=== PATIENT | female | born 1975 | race Hispanic/Latino ===

== ENCOUNTER 2024-03-26 15:19 | Emergency (ER) | payer BC ==
[~2024-03-26] VITALS: Ht 152.4 cm; Wt 59.9 kg
[~2024-03-26 15:19] MED LIST: LACT10SO9 PO
[2024-03-26 15:23] VITALS: BP 116/72; PULSE 120; RESP 16; TEMP 97.9
[2024-03-26 15:49] LABS: APPEARANCE,URINE CLOUDY (CLEAR); BILIRUBIN,URINE NEGATIVE (NEGATIVE); COLOR,URINE YELLOW (YELLOW); GLUCOSE, URINE (UA) NEGATIVE (NEGATIVE); KETONES,URINE NEGATIVE (NEGATIVE); LEUKOCYTE ESTERASE ,URINE 500 Leu/uL (NEGATIVE); NITRATE,URINE NEGATIVE (NEGATIVE); OCCULT BLOOD,URINE NEGATIVE (NEGATIVE); PH,URINE 5.5 (5.0-8.0); PROTEIN,URINE 10 mg/dL (NEGATIVE)
[2024-03-26 15:53] LABS: ADD UA MICROSCOPIC YES
[2024-03-26 15:55] LABS: BACTERIA,URINE RARE /HPF (None Seen); MUCUS,URINE RARE LPF (None Seen); NON-SQUAMOUS EPITHELIAL CELL 2 /HPF (0-2); SQUAMOUS EPITHELIAL CELL,UR FEW /HPF (0-2); WBC,URINE 26-50 /HPF (0-1)
[2024-03-26] MEDS: ondanSETRON 4MG INJ IVP ONE (16:27)
[2024-03-26] MEDS: 0.9%NACL 1000ML 1,000 ML IV ONE (16:27)
[2024-03-26] MEDS: FAMOTIDINE 20MG VIAL IV ONE (16:27)
[2024-03-26 16:46] LABS: BASOPHILS # (AUTO) 0.01 K/uL (0.00-0.20); BASOPHILS % (AUTO) 0.3 % (0.0-5.0); EOSINOPHILS # (AUTO) 0.06 K/uL (0.00-0.70); EOSINOPHILS % (AUTO) 1.9 % (0.0-8.0); HEMATOCRIT 33.8 % (36-48); IMMATURE GRANULOCYTE ABSOLUTE 0.01 K/uL (0-1); LYMPHOCYTES # (AUTO) 1.1 K/uL (1.0-4.8); LYMPHOCYTES % (AUTO) 34.8 % (21.0-51.0); MEAN CORPUSCULAR HEMOGLOBIN 27.9 pg (27.0-33.0); MEAN CORPUSCULAR HGB CONC 33.1 g/dL (32.0-36.0); MEAN CORPUSCULAR VOLUME 84.1 fL (79-99); MONOCYTES # (AUTO) 0.2 K/uL (0.1-1.0); NEUTROPHILS # (AUTO) 1.8 K/uL (1.8-7.7); NEUTROPHILS % (AUTO) 56.7 % (40.0-77.0); PLATELET COUNT (AUTO) 152 K/uL (130-400); RED BLOOD CELL COUNT(AUTO) 4.02 MIL/uL (4.00-5.50); RED CELL DISTRIBUTION WIDTH 13.6 % (11.0-15.5); WHITE BLOOD COUNT (AUTO) 3.2 K/uL (4.8-10.8)
[2024-03-26 16:56] LABS: CREATININE 0.6 mg/dL (0.5-1.0); POTASSIUM 4.2 mmol/L (3.5-5.1)
[2024-03-26 17:01] LABS: ALBUMIN 3.4 g/dL (3.5-5.0); BILIRUBIN,DIRECT 0.2 mg/dL (0.0-0.3); BILIRUBIN,TOTAL 1.2 mg/dL (0.2-1.0); TOTAL PROTEIN, SERUM 7.8 g/dL (6.0-8.3)
[2024-03-26] MEDS: cefTRIAXone 1G VIAL IVPB SCH (18:01)
[2024-03-26] MEDS ORDERED: SULF1TAB42 PO (18:17)
--- NOTE | 2024-03-26 18:18 | ERN ---
General Chief Complaint: Nausea,Vomiting,Diarrhea Stated Complaint: VOMITTING,DEHYDRATED Time Seen by MD: 15:22 Time Seen by Midlevel: 15:22 Source: patient History of Present Illness Initial Comments Patient is a 48-year-old female with a past medical history of endometrial cancer presenting to the emergency department with nausea that has been ongoing since last Tuesday after she received her radiation therapy. She denies any other symptoms. She is followed by oncologist Dr. Christie. Allergies: Coded Allergies: No Known Drug Allergies (Unverified Allergy, Unknown, 04/20/23) Home Meds Active Scripts Sulfamethoxazole/Trimethoprim (Bactrim Ds Tablet) 800 Mg-160 Mg Tablet, 1 TAB PO BID for 7 Days, #14 TAB 0 Refills Prov:MICHELLE CHERRY 03/26/24 Lactulose (Lactulose) 20 Gram/30 Ml Solution, 20 GM PO DAILY PRN for constipation for 30 Days, #320 ML Prov:JOVAN BECKHMA NP 04/22/23 Past Medical History Past Medical History: Cancer Medical History Other: STG 4 ENDOMETRIAL CA, NEUROPATHY Past Surgical History: Hysterectomy, None Surgical History Other: PORT Social History Social History: Negative, Lives with family ROS Dictation CONSTITUTIONAL: Negative except for HPI HEAD/FACE: Negative except for HPI EENT: Negative except for HPI RESPIRATORY: Negative except for HPI GASTROINTESTINAL/ABDOMINAL: Negative except for HPI GENITOURINARY: Negative except for HPI MUSCULOSKELETAL: Negative except for HPI INTEGUMENTARY: Negative except for HPI NEUROLOGICAL/PSYCH: Negative except for HPI HEMATOLOGIC/LYMPHATIC: Negative except for HPI All Systems Negative, Except as noted above. 13 point review of systems assessed and all negative except for above. Physical Exam Physical Exam Dictation Vital Signs reviewed General Appearance: Alert, oriented x 3, no acute distress, well developed, nourished. Head and Face: non-traumatic. Eyes: PERRL, pink conjunctivas, eyelid no trauma, anterior chamber with arcus senilis. Ears: Pinnas intact and no signs of trauma or erythema ear canals clear and no discharge TM no erythema Nose: No discharge, no bleeding. Oropharynx: Mouth normal, tongue pink, pharynx clear,no erythema, tonsils no exudates, no abscesses noted, mucous membrane moist Neck: Supple, non-tender, no thyromegaly, no masses, no JVD, no bruits Breast:Deferred Chest:No tenderness, no crepitus, no paradoxical movement, no retractions Lungs:Clear, well-ventilated, symmetric, no rales, no wheezing, no rhonchi, no stridor, good breath sounds bilaterally Heart: Regular rate, regular rhythm, no murmur, no gallops Vascular: no peripheral edema, Abdomen: Soft, positive bowel sounds, nondistended, no guarding, nontender, no rebound, no masses no hepatomegaly, no splenomegaly, no Jean's sign, no hernias. Rectal: Deferred Genital: Deferred Neurological: Normal speech, motor function intact, sensory function intact Musculoskeletal: Neck nontender, full range of motion, back nontender, full range of motion, Extremities: nontender, full range of motion Skin: Color pink, dry, no turgor, no rash, no lacerations, no abrasions, no contusions. Lymphatic: Deferred Results Laboratory and Microbiology Lab and Micro Result Laboratory Tests Test 03/26/24 15:38 03/26/24 16:36 Urine Color YELLOW (YELLOW) Urine Appearance CLOUDY (CLEAR) H Urine pH 5.5 (5.0-8.0) Urine Specific [place] 1.013 (1.001-1.031) Urine Protein 10 mg/dL (NEGATIVE) H Urine Glucose (UA) NEGATIVE mg/dL (NEGATIVE) Urine Ketones NEGATIVE mg/dL (NEGATIVE) Urine Occult Blood NEGATIVE (NEGATIVE) Urine Nitrate NEGATIVE (NEGATIVE) Urine Bilirubin NEGATIVE mg/dL (NEGATIVE) Urine Urobilinogen 4.0 mg/dL (0.2-1.0) H Urine Leukocyte Esterase 500 Brittaney/uL (NEGATIVE) H Urine RBC 2-5 /HPF (0-1) H Urine WBC 26-50 /HPF (0-1) H Urine Squamous Epithelial Cells FEW /HPF (0-2) Urine Non-Squamous Epithelial Cells 2 /HPF (0-2) Urine Bacteria RARE /HPF (None Seen) White Blood Count 3.2 K/uL (4.8-10.8) L Red Blood Count 4.02 MIL/uL (4.00-5.50) Hemoglobin 11.2 g/dL (12.0-16.0) L Hematocrit 33.8 % (36-48) L Mean Corpuscular Volume 84.1 fL (79-99) Mean Corpuscular Hemoglobin 27.9 pg (27.0-33.0) Mean Corpuscular Hemoglobin Concent 33.1 g/dL (32.0-36.0) Red Cell Distribution Width 13.6 % (11.0-15.5) Platelet Count 152 K/uL (130-400) Mean Platelet Volume 8.7 fL (7.5-10.5) Immature Granulocyte % (Auto) 0.3 % (0-1) Neutrophils (%) (Auto) 56.7 % (40.0-77.0) Lymphocytes (%) (Auto) 34.8 % (21.0-51.0) Monocytes (%) (Auto) 6.0 % (3.0-13.0) Eosinophils (%) (Auto) 1.9 % (0.0-8.0) Basophils (%) (Auto) 0.3 % (0.0-5.0) Neutrophils # (Auto) 1.8 K/uL (1.8-7.7) Lymphocytes # (Auto) 1.1 K/uL (1.0-4.8) Monocytes # (Auto) 0.2 K/uL (0.1-1.0) Eosinophils # (Auto) 0.06 K/uL (0.00-0.70) Basophils # (Auto) 0.01 K/uL (0.00-0.20) Absolute Immature Granulocyte (auto 0.01 K/uL (0-1) Nucleated Red Blood Cells 0.0 % (0.0-0.19) Sodium Level 143 mmol/L (136-145) Potassium Level 4.2 mmol/L (3.5-5.1) Chloride Level 105 mmol/L (101-111) Carbon Dioxide Level 31 mmol/L (21-32) Blood Urea Nitrogen 6 mg/dL (7-18) L Creatinine 0.6 mg/dL (0.5-1.0) Glomerular Filtration Rate Calc 112 mL/min (>90) Random Glucose 92 mg/dL (70-105) Total Calcium 10.6 mg/dL (8.5-10.1) H Total Bilirubin 1.2 mg/dL (0.2-1.0) H Direct Bilirubin 0.2 mg/dL (0.0-0.3) Aspartate Amino Transf (AST/SGOT) 27 U/L (10-37) Alanine Aminotransferase (ALT/SGPT) 17 U/L (12-78) Alkaline Phosphatase 74 U/L (50-136) Total Creatine Kinase 42 U/L (21-232) Total Protein 7.8 g/dL (6.0-8.3) Albumin 3.4 g/dL (3.5-5.0) L Lipase 20 U/L (16-77) Serum Test, Qualitative NEGATIVE (NEGATIVE) Labs Reviewed?: Yes MDM MDM: Differential diagnosis: DKA, electrolyte abnormality, dehydration, urinary tract infection There are no social concerns with this patient. Prescription drug management Prescriptions will include: Bactrim Medical management and examination interpretation discussions were had by me with other qualified healthcare professionals as indicated for the patient's care. ED Course Orders Procedure Category Date Status Time Cbc With Differential LAB 03/26/24 Complete 15:22 Basic Metabolic Panel LAB 03/26/24 Complete 15:22 Hepatic Function Panel LAB 03/26/24 Complete 15:22 Lipase LAB 03/26/24 Complete 15:22 Urinalysis Profile LAB 03/26/24 Complete 15:22 Testing, LAB 03/26/24 Complete Serum Hcg 15:22 Creatine Kinase, Total LAB 03/26/24 Complete 15:22 0.9%Nacl 1000ml (Ns PHA 03/26/24 Complete 1000ml) 15:30 Ondansetron 4mg Inj PHA 03/26/24 Complete (Zofran 4mg Inj) 15:30 Famotidine 20mg Vial PHA 03/26/24 Complete (Pepcid 20mg Vial) 15:30 Culture Urine DEEJAY 03/26/24 In Process 15:53 Ceftriaxone 1g Vial PHA 03/26/24 In Process (Rocephine 1g Inj) 18:00 Ondansetron 4mg Inj PHA 03/26/24 Logged (Zofran 4mg Inj) 18:30 Current Medications Medications (Trade) Dose Ordered Sig/Mina Route PRN Reason Start Time Stop Time Status Last Admin Dose Admin Ceftriaxone Sodium (ROCEphine 1G INJ) 1 gm ONCE IVPB 03/26/24 18:00 03/26/24 21:00 03/26/24 18:01 Famotidine (Pepcid 20mg Vial) 20 mg ONCE ONCE IV 03/26/24 15:30 03/26/24 15:31 DC 03/26/24 16:27 Ondansetron HCl (zoFRAN 4MG INJ) 4 mg ONCE ONCE IVP 03/26/24 15:30 03/26/24 15:31 DC 03/26/24 16:27 Ondansetron HCl (zoFRAN 4MG INJ) 4 mg ONCE ONCE IVP 03/26/24 18:30 03/26/24 18:31 UNV Sodium Chloride 1,000 ml @ 0 mls/hr ONCE ONCE IV 03/26/24 15:30 03/26/24 15:31 DC 03/26/24 16:27 Vital Signs Date Time Temp Pulse Resp B/P (MAP) Pulse Ox O2 Delivery O2 Flow Rate FiO2 03/26/24 15:23 97.9 120 16 116/72 100 Room Air 0 DX & DISP Disposition: Discharge Departure Impression: Primary Impression: Urinary tract infection Condition: Stable Scripts Ondansetron (Ondansetron Odt) 4 Mg Tab.rapdis 4 MG PO BID for 7 Days, #14 TAB Prov: MICHELLE CHERRY 03/26/24 Sulfamethoxazole/Trimethoprim (Bactrim Ds Tablet) 800 Mg-160 Mg Tablet 1 TAB PO BID for 7 Days, #14 TAB 0 Refills Prov: MICHELLE CHERRY 03/26/24 Referrals: SELF,REFERRAL (PCP) Time of Disposition: 18:17 I have reviewed the case, and I agree with, Diagnosis and Plan I performed the substantive portion of the visit. I have reviewed and personally made and approve the management plan that is documented in the note by myself or the ABIEL. I acknowledge for responsibility for the patient's management plan. MICHELLE CHERRY Mar 26, 2024 18:18
[2024-03-26] MEDS ORDERED: ONDA-243 PO (18:29)
[2024-03-26] MEDS ORDERED: ondanSETRON 4MG INJ IVP SCH (18:30)
== END 2024-03-26 20:05 | disposition home or self-care (01) ==
LOC: EDH 15:19
DX: N39.0 Urinary tract infection, site not specified (principal); Z85.42 Personal history of malignant neoplasm of other parts of uterus; Z90.710 Acquired absence of both cervix and uterus
CPT/HCPCS: 99284; 96365; 96375; 96361; 82550; 80076; 80048; 84703; 83690; 85025; 87086; 81001; 36415; J3490; J7030; J0696; J2405

== ENCOUNTER 2024-06-02 14:57 | Inpatient (IN) | payer BC ==
[2024-06-02] VITALS (10 sets, daily range): BP systolic 40–151; BP diastolic 18–88; PULSE 121–134; RESP 10–21; TEMP 97.7; O2SAT 99
[~2024-06-02] VITALS: Ht 152.4 cm; Wt 61.0 kg
[~2024-06-02 14:57] MED LIST changes: +AEC81 PO; +CEFD300C3 PO; +COLC0.6T73 PO; +CYAN100099 PO; +FERS325 PO; +FOLI0.4T6 PO; +GABA-529 PO; +INDO-16 PO; -LACT10SO9 PO; +LACT1CAP79 PO; +METO10TA3 PO; +METO10TA41 PO; +ONDA-104 PO; +TRAM100T34 PO; +TRAM50TA4 PO; +[UNRECOGNIZED DRUG - CODE] PO
--- NOTE | 2024-06-02 15:13 | EKG ---
[facility] Test Date: 2024-06-02 Test Time: 15:12:38 Pat Name: JERRY MALONE Department: [facility] Room: Gender: F Sap Basis: [id number] : 1975 Requested By: MAGGIE COLLADO Order Number: [id number] Reading MD: Libby Burleson Measurements Intervals [place] Rate: 145 P: 50 MO: 127 QRS: 52 QRSD: 50 T: 34 QT: 271 QTc: 422 Interpretive Statements Sinus tachycardia Multiple premature complexes, vent & supraven Compared to ECG 05/04/2024 20:26:29 No significant changes Electronically Signed On 06-02-2024 16:52:37 CDT by Libby Burleson Please click the below link to view image of tracing.
[2024-06-02 15:48] LABS: BASOPHILS # (AUTO) 0.02 K/uL (0.00-0.20); BASOPHILS % (AUTO) 0.2 % (0.0-5.0); EOSINOPHILS # (AUTO) 0.08 K/uL (0.00-0.70); EOSINOPHILS % (AUTO) 0.6 % (0.0-8.0); HEMATOCRIT 30.3 % (36-48); IMMATURE GRANULOCYTE ABSOLUTE 0.06 K/uL (0-1); LYMPHOCYTES # (AUTO) 1.6 K/uL (1.0-4.8); MEAN CORPUSCULAR HEMOGLOBIN 29.6 pg (27.0-33.0); MEAN CORPUSCULAR VOLUME 92.4 fL (79-99); MONOCYTES # (AUTO) 0.8 K/uL (0.1-1.0); MONOCYTES % (AUTO) 6.4 % (3.0-13.0); NEUTROPHILS # (AUTO) 9.9 K/uL (1.8-7.7); NEUTROPHILS % (AUTO) 79.3 % (40.0-77.0); PLATELET COUNT (AUTO) 158 K/uL (130-400); RED BLOOD CELL COUNT(AUTO) 3.28 MIL/uL (4.00-5.50); RED CELL DISTRIBUTION WIDTH 15.7 % (11.0-15.5); WHITE BLOOD COUNT (AUTO) 12.4 K/uL (4.8-10.8)
--- NOTE | 2024-06-02 15:49 | ERN ---
General Chief Complaint: Sepsis Stated Complaint: GENERAL BODY WEAKNESS SEPSIS ALERT Time Seen by MD: 14:58 Source: patient, EMS History of Present Illness Initial Comments PATIENT IS A 48-YEAR-OLD FEMALE COMING IN FOR GENERALIZED BODY WEAKNESS. PER E MS PATIENT HAS BEEN PRESENTING WITH WEAKNESS FOR TWO DAYS AND WAS FOUND TO HAVE A NEAR SYNCOPAL EPISODE. PATIENT WAS ALSO HYPOXIC HYPOTENSIVE VIA EMS. Allergies: Coded Allergies: No Known Drug Allergies (Unverified Allergy, Unknown, 04/20/23) Home Meds Active Scripts Cyanocobalamin (Vitamin B-12) (B-12) 1,000 Mcg Tablet, 1 TAB PO DAILY for 30 Days, #30 TAB 1 Refill Prov:MARLENE INIGUEZ MD 05/09/24 Folic Acid (Folic Acid) 0.4 Mg Tablet, 1 TAB PO DAILY for 30 Days, #30 TAB 1 Refill Prov:MARLENE INIGUEZ MD 05/09/24 Cefdinir (Cefdinir) 300 Mg Capsule, 1 CAP PO BID for 5 Days, #10 CAP 0 Refills Prov:MARLENE INIGUEZ MD 05/09/24 Ferrous Sulfate (Ferrous Sulfate) 325 Mg (65 Mg Iron) Ectab, 1 TAB PO DAILY for 30 Days, #30 TAB 1 Refill Prov:MARLENE INIGUEZ MD 05/09/24 Lactobacillus Rhamnosus GG (Culturelle) 15 Billion Cell Cap.sprink, 1 EACH PO DAILY for 7 Days, #14 CAP.SPRINK 1 Refill Prov:MARLENE INIGUEZ MD 05/09/24 Indomethacin (Indocin) 25 Mg Cap, 25 MG PO BID PRN for CHEST PAIN for 7 Days, #14 CAP 1 Refill Prov:MARLENE INIGUEZ MD 05/09/24 Colchicine (Colchicine) 0.6 Mg Tablet, 0.6 MG PO DAILY for 44 Days, #44 TAB 0 Refills Prov:MARLENE INIGUEZ MD 05/09/24 Aspirin (ASPIRIN 81 MG ECTAB) 81 Mg Ectab, 81 MG PO DAILY for 30 Days, #30 TAB.EC 1 Refill Prov:MARLENE INIGUEZ MD 05/09/24 Ondansetron HCl (Ondansetron HCl) 4 Mg Tablet, 1 TAB PO Q4HPRN PRN for nausea/vomiting for 3 Days, #18 TAB 0 Refills Prov:JOVAN BECKHAM NP 04/12/24 Reported Medications Metoclopramide HCl (Metoclopramide HCl) 10 Mg Tablet, 1 TAB PO QIDP PRN for nausea/vomiting 05/05/24 Tramadol Hcl (Tramadol HCl) 50 Mg Tablet, 1 TAB PO Q8H PRN for pain 05/05/24 Guaifenesin (Mucus-ER Max) 1,200 Mg Tab.er.12h, 1200 MG PO BID PRN for OTHER [SEE ORDER COMMENTS], TAB 04/07/24 Tramadol HCl (Tramadol HCl ER) 100 Mg Tab.er.24h, 50 MG PO TID PRN for PAIN, TAB 04/07/24 Metoclopramide HCl (Reglan 10 mg Tab) 10 Mg Tablet, 1 TAB PO QID PRN for NAUSEA/VOMITING for 30 Days, #120 TAB 0 Refills 04/07/24 Gabapentin (Gabapentin) 100 Mg Capsule, 1 CAP PO BID for 30 Days, #90 CAP 0 Refills 04/07/24 Past Medical History Past Medical History: Cancer Medical History Other: PERICARDITIS, CHEMO, ENDOMETRIOSIS, UTERINE CANCER Past Surgical History: Other Surgical History Other: PORT A CATH Social History Social History: Negative, Lives with family ROS Dictation CONSTITUTIONAL: NO CHILLS, NO FEVER, WEAKNESS, NO DIAPHORESIS, NO MALAISE. HEAD/FACE: NO SIGNS OF TRAUMA. EENT: NO EYE PAIN, NO BLURRED VISION, NO TEARING, NO DOUBLE VISION, NO EAR PAIN, NO EAR DISCHARGE, NO NOSE PAIN, NO NASAL CONGESTION, NO THROAT PAIN, NO THROAT SWELLING, NO MOUTH PAIN. RESPIRATORY: NO COUGH, NO ORTHOPNEA, NO SOB, NO STRIDOR, NO WHEEZING. CARDIOVASCULAR: NO CHEST PAIN, NO EDEMA, NO PALPITATIONS, NO SYNCOPE. GASTROINTESTINAL/ABDOMINAL: NO ABDOMINAL PAIN, NO CONSTIPATION, NO DIARRHEA, NO NAUSEA, NO VOMITING. GENITOURINARY: NO ABNORMAL DISCHARGE, NO DYSURIA, NO FREQUENT URINATION, NO HEMATURIA. NO COMPLAINTS OF PAIN IN THE GENITALS. MUSCULOSKELETAL: NO BACK PAIN, NO GOUT, NO JOINT PAIN, NO JOINT SWELLING, NO MUSCLE PAIN, NO MUSCLE STIFFNESS, NO NECK PAIN. INTEGUMENTARY: NO CHANGE IN COLOR, NO CHANGE IN HAIR/NAILS, NO DRYNESS, NO LESION, NO LUMPS, NO RASH. NEUROLOGICAL/PSYCH: NO ANXIETY, NOT DEPRESSED, NO EMOTIONAL PROBLEM, NO HEADACHE, NO NUMBNESS, NO PRE-EXISTING DEFICIT, NO HISTORY OF SEIZURES, NO TREMORS, NO WEAKNESS. HEMATOLOGIC/LYMPHATIC: NOT ANEMIC, NO HISTORY OF BLOOD CLOTS, NO APPARENT BLEEDING, NO BRUISING, GLANDS NOT SWOLLEN. ALL SYSTEMS NEGATIVE, EXCEPT NOTED. Physical Exam Physical Exam Dictation VITAL SIGNS: REVIEWED. GENERAL APPEARANCE: ALERT, ORIENTED X3, NO ACUTE DISTRESS, OBESE. HEAD AND FACE: NON-TRAUMATIC. EYES: PERRL, PINK CONJUNCTIVAS, EYELID NO TRAUMA, ANTERIOR CHAMBER CLEAR. EARS: PINNAS INTACT AND NO SIGNS OF TRAUMA OR ERYTHEMA. EAR CANALS CLEAR AND NO DISCHARGE. TMS NO ERYTHEMA. NOSE: NO DISCHARGE, NO BLEEDING. OROPHARYNX: MOUTH NORMAL, TEETH NO CARIES, TONGUE PINK. PHARYNX CLEAR, NO ERYTHEMA. TONSILS NO EXUDATES, NO ABSCESSES NOTED. MUCOUS MEMBRANE MOIST. NECK: SUPPLE, NON-TENDER, NO THYROMEGALY, NO MASSES, NO JVD, NO BRUITS. BREAST: DEFERRED. CHEST: NO TENDERNESS, NO CREPITUS, NO PARADOXICAL MOVEMENT, NO RETRACTIONS. LUNGS: CLEAR, WELL-VENTILATED, SYMMETRIC, NO RALES, NO WHEEZING, NO RHONCHI, NO STRIDOR, GOOD BREATH SOUNDS BILATERALLY. HEART: REGULAR RATE, REGULAR RHYTHM, NO MURMUR, NO GALLOPS. VASCULAR: NO PERIPHERAL EDEMA. ABDOMEN: SOFT, POSITIVE BOWEL SOUNDS, NONDISTENDED, NO GUARDING, NONTENDER, NO REBOUND, NO MASSES NO HEPATOMEGALY, NO SPLENOMEGALY, NO LANGFORD'S SIGN, NO HERNIAS. RECTAL: DEFERRED. GENITAL: DEFERRED. NEUROLOGICAL: NORMAL SPEECH, GROSS MOTOR FUNCTION INTACT, GROSS SENSORY FUNCTION INTACT. MUSCULOSKELETAL: NECK NONTENDER, FULL RANGE OF MOTION, BACK NONTENDER, FULL RANGE OF MOTION. EXTREMITIES: NONTENDER, FULL RANGE OF MOTION. SKIN: COLOR PINK, DRY, NO TURGOR, NO RASH, NO LACERATIONS, NO ABRASIONS, NO CONTUSIONS. LYMPHATICS: DEFERRED. Results Laboratory and Microbiology Lab and Micro Result Laboratory Tests Test 06/02/24 15:36 06/02/24 16:48 06/02/24 17:14 White Blood Count 12.4 K/uL (4.8-10.8) H Red Blood Count 3.28 MIL/uL (4.00-5.50) L Hemoglobin 9.7 g/dL (12.0-16.0) L Hematocrit 30.3 % (36-48) L Mean Corpuscular Volume 92.4 fL (79-99) Mean Corpuscular Hemoglobin 29.6 pg (27.0-33.0) Mean Corpuscular Hemoglobin Concent 32.0 g/dL (32.0-36.0) Red Cell Distribution Width 15.7 % (11.0-15.5) H Platelet Count 158 K/uL (130-400) Mean Platelet Volume 9.2 fL (7.5-10.5) Immature Granulocyte % (Auto) 0.5 % (0-1) Neutrophils (%) (Auto) 79.3 % (40.0-77.0) H Lymphocytes (%) (Auto) 13.0 % (21.0-51.0) L Monocytes (%) (Auto) 6.4 % (3.0-13.0) Eosinophils (%) (Auto) 0.6 % (0.0-8.0) Basophils (%) (Auto) 0.2 % (0.0-5.0) Neutrophils # (Auto) 9.9 K/uL (1.8-7.7) H Lymphocytes # (Auto) 1.6 K/uL (1.0-4.8) Monocytes # (Auto) 0.8 K/uL (0.1-1.0) Eosinophils # (Auto) 0.08 K/uL (0.00-0.70) Basophils # (Auto) 0.02 K/uL (0.00-0.20) Absolute Immature Granulocyte (auto 0.06 K/uL (0-1) Nucleated Red Blood Cells 0.0 % (0.0-0.19) Sodium Level 132 mmol/L (136-145) L Potassium Level 4.8 mmol/L (3.5-5.1) Chloride Level 99 mmol/L (101-111) L Carbon Dioxide Level 27 mmol/L (21-32) Blood Urea Nitrogen 21 mg/dL (7-18) H Creatinine 1.5 mg/dL (0.5-1.0) H Glomerular Filtration Rate Calc 43 mL/min (>90) Random Glucose 83 mg/dL (70-105) Lactic Acid Level 1.9 mmol/L (0.8-2.5) Total Calcium 8.9 mg/dL (8.5-10.1) Total Bilirubin 1.9 mg/dL (0.2-1.0) H Aspartate Amino Transf (AST/SGOT) 18 U/L (10-37) Alanine Aminotransferase (ALT/SGPT) 5 U/L (12-78) L Alkaline Phosphatase 89 U/L (50-136) Total Creatine Kinase 90 U/L (21-232) Troponin I High Sensitivity 11 ng/L (4-50) Total Protein 5.9 g/dL (6.0-8.3) L Albumin 2.3 g/dL (3.5-5.0) L Lipase 8 U/L (16-77) L Procalcitonin 5.90 ng/mL (0.05-0.5) H Human Chorionic Gonadotropin, Quant 3 mIU/mL (0-5) Influenza Type A Antigen Negative For Type A Influenza Type B Antigen Negative For Type B SARS-CoV-2, RNA, NAAT NEGATIVE SARS CoV-2 Group A Streptococcus Rapid negative (NEGATIVE) Labs Reviewed?: Yes EKG/XRAY/US/CT/MRI EKG Comment 06/02/2024 TIME 3:12 P.M. VENTRICULAR RATE [address] WAVE ELEVATION OR DEPRESSION SINUS TACHYCARDIA X-RAY Comment [address] [place] [id number] [place] [id number] IMAGING REPORT Signed PATIENT: JERRY MALONE MR#: [id number] : 1975 SEX: F AGE: 48 LOCATION: [facility] ORDER 1500 STATUS: REG ER REPORT#: [id number] SERVICE [id number] REASON: SEPSIS ORDERING PHYSICIAN: MAGGIE COLLADO MD PROCEDURE: CXR1VW - CHEST 1VW CHEST 1VW HISTORY: Sepsis COMPARISON: None FINDINGS: A frontal projection of the chest was obtained. Mild bilateral pulmonary infiltrates are seen may be related to mild pulmonary vascular congestion with possible superimposed pneumonitis. The heart is borderline enlarged. Port-A-Cath is seen entering from the left. Degenerative changes are seen. No evidence of aortic calcification is seen. IMPRESSION: 1. Mild bilateral pulmonary infiltrates are seen may be related to mild pulmonary vascular congestion with possible superimposed pneumonitis. DICTATED BY: EMILY WETZEL MD DATE: 06/02/24 1610 ELECTRONICALLY SIGNED BY: EMILY WETZEL MD DATE: 06/02/24 1615 [facility] MDM: Differential diagnosis: Sepsis, UTI, URI, hypotensive, Rationale: Tests considered and ordered secondary to shared decision making include: labs, ECG and radiology Previous outside records reviewed: Old ER visits. Risk of complication and/or morbidity or mortality of patient management: None Medications-Per medication reconciliation Need for hospitalization: Patient does meet criteria for hospitalization. Need for emergency major/minor surgery: No There are no social concerns with this patient. Prescription drug management Prescriptions will include symptomatic care Patient's prior external medical records from other ER visits were reviewed by me as indicated. Prior testing and results from previous visits were reviewed. Prior tests were taken into account with medical decision making and resource utilization, independent historian/historians were used to obtain complete medical history. I independently interpreted the test that were performed, results were reviewed by me and considered findings on radiology if ordered. Medical management and examination interpretation discussions were had by me with other qualified healthcare professionals as indicated for the patient's care. Patient is a 48-year-old female coming in to be evaluated for low blood pressure and tachycardic. Septic workup positive for elevated procalcitonin. Patient also presented with mildly elevated white blood cell count with chest x- ray infiltrates. Patient will be admitted under the care of hospitalist group for ongoing management. ED Course Orders Procedure Category Date Status Time Cbc With Differential LAB 06/02/24 Complete 14:58 Comprehensive LAB 06/02/24 Complete Metabolic Panel 14:58 Troponin I High LAB 06/02/24 Complete Sensitivity 14:58 Hcg,Quantitative LAB 06/02/24 Complete 14:58 ,Urine Test LAB 06/02/24 Logged 14:58 Urinalysis Profile LAB 06/02/24 Logged 14:58 12 Lead Ekg Tracing- EKG 06/02/24 Resulted Technical 14:58 Lactated Ringers PHA 06/02/24 Complete 1000ml (Lactated 15:00 Acetaminophen 325 Tab PHA 06/02/24 Complete (Tylenol 325mg Tab 15:00 Ondansetron 4mg Inj PHA 06/02/24 Complete (Zofran 4mg Inj) 15:00 Creatine Kinase, Total LAB 06/02/24 Complete 14:58 Chest 1vw RAD 06/02/24 Resulted 14:58 Lipase LAB 06/02/24 Complete 14:58 Basic Metabolic Panel LAB 06/02/24 Complete 14:58 Covid Rna Naat LAB 06/02/24 Complete 15:00 Influenza Type A & B, LAB 06/02/24 Complete Rapid 15:00 Blood Cult DEEJAY 06/02/24 In Process 15:37 Culture Urine DEEJAY 06/02/24 In Process 15:37 Procalcitonin LAB 06/02/24 Complete 15:37 Lactic Acid LAB 06/02/24 Complete 15:37 Norepinephrin 4mg/Ns PHA 06/02/24 In Process 250ml (Levophed 4mg 16:00 Lactated Ringers PHA 06/02/24 In Process 1000ml (Lactated 17:30 Rapid (Group A Strep) LAB 06/02/24 Complete 17:09 Ceftriaxone 1g Vial PHA 06/02/24 Complete (Rocephine 1g Inj) 18:00 Azithromycin 500mg+Ns PHA 06/02/24 In Process 250ml (Azithromyci 18:00 Current Medications Medications (Trade) Dose Ordered Sig/Mina Route PRN Reason Start Time Stop Time Status Last Admin Dose Admin Acetaminophen (TYLenol 325MG TAB) 650 mg ONCE ONCE PO 06/02/24 15:00 06/02/24 15:08 DC 06/02/24 15:57 Azithromycin 250 ml @ 250 mls/hr Q24H IVPB 06/02/24 18:00 06/12/24 17:59 06/02/24 18:18 Ceftriaxone Sodium (ROCEphine 1G INJ) 1 gm ONCE ONCE IVPB 06/02/24 18:00 06/02/24 18:08 DC 06/02/24 18:18 Lactated Ringer's 1,000 ml @ 0 mls/hr ONCE ONCE IV 06/02/24 15:00 06/02/24 15:08 DC 06/02/24 15:57 Lactated Ringer's 1,905 ml @ 635 mls/hr ONCE ONCE IV 06/02/24 17:30 06/02/24 20:29 06/02/24 17:17 Norepinephrine 250 ml @ 0 mls/hr PROTOCOL IV 06/02/24 16:00 07/02/24 15:59 06/02/24 16:28 Ondansetron HCl (zoFRAN 4MG INJ) 4 mg ONCE ONCE IVP 06/02/24 15:00 06/02/24 15:08 DC 06/02/24 15:56 Vital Signs Date Time Temp Pulse Resp B/P (MAP) Pulse Ox O2 Delivery O2 Flow Rate FiO2 06/02/24 18:13 150 20 103/52 98 Nasal Cannula* 4 36 06/02/24 17:36 148 22 64/32 98 Nasal Cannula* 4 36 06/02/24 17:17 99.5 150 21 90/51 98 Nasal Cannula* 4 36 06/02/24 16:53 142 22 82/52 98 Nasal Cannula* 4 36 06/02/24 16:45 99.1 144 20 71/41 98 Nasal Cannula* 4 36 06/02/24 16:29 99.0 141 20 58/33 98 Nasal Cannula* 4 36 06/02/24 16:28 58/33 06/02/24 15:35 99.7 144 18 61/33 98 Nasal Cannula* 4 36 06/02/24 15:01 97.7 141 25 113/77 94 Nasal Cannula 3.0 Critical Care Note Comments Critical Care Procedure Note Authorized and Performed by: me Total critical care time: Approximately 36 minutes Due to a high probability of clinically significant, life threatening deterioration, the patient required my highest level of preparedness to intervene emergently and I personally spent this critical care time directly and personally managing the patient. This critical care time included obtaining a history; examining the patient; pulse oximetry; ordering and review of studies; arranging urgent treatment with development of a management plan; evaluation of patient's response to treatment; frequent reassessment; and, discussions with other providers. This critical care time was performed to assess and manage the high probability of imminent, life-threatening deterioration that could result in multi-organ failure. It was exclusive of separately billable procedures and treating other patients and teaching time. Please see MDM section and the rest of the note for further information on patient assessment and treatment. DX & DISP Disposition: Inpatient Decision to Admit Time: 18:20 Departure Impression: Primary Impression: Dehydration Additional Impressions: Tachycardia, Hypotension Condition: Stable Referrals: SELF,REFERRAL (PCP) MAGGIE COLLADO MD Jun 02, 2024 15:49
[2024-06-02] MEDS: ondanSETRON 4MG INJ IVP ONE (15:56)
[2024-06-02] MEDS: LACTATED RINGERS 1000ML 1,000 ML IV ONE (15:57)
[2024-06-02] MEDS: acetaMINOPHEN 325 MG TAB PO ONE (15:57)
[2024-06-02 16:02] LABS: CREATININE 1.5 mg/dL (0.5-1.0); POTASSIUM 4.8 mmol/L (3.5-5.1)
--- NOTE | 2024-06-02 16:15 | HMCIMG ---
CHEST 1VW HISTORY: Sepsis COMPARISON: None FINDINGS: A frontal projection of the chest was obtained. Mild bilateral pulmonary infiltrates are seen may be related to mild pulmonary vascular congestion with possible superimposed pneumonitis. The heart is borderline enlarged. Port-A-Cath is seen entering from the left. Degenerative changes are seen. No evidence of aortic calcification is seen. IMPRESSION: 1. Mild bilateral pulmonary infiltrates are seen may be related to mild pulmonary vascular congestion with possible superimposed pneumonitis.
[2024-06-02 16:23] LABS: ALBUMIN 2.3 g/dL (3.5-5.0); BILIRUBIN,TOTAL 1.9 mg/dL (0.2-1.0); TOTAL PROTEIN, SERUM 5.9 g/dL (6.0-8.3)
[2024-06-02] MEDS: NOREPINEPHRIN 4MG/NS 250ML 250 ML IV SCH (16:28)
--- NOTE | 2024-06-02 17:03 | NUR ---
30ML PER KG BOLUS ORDERED AT THIS TIME. 1 LITER OF LR ALREADY ADMINISTERED
[2024-06-02] MEDS: LACTATED RINGERS IV ONE (17:17)
[2024-06-02 17:30] LABS: SARS-CoV-2, RNA, NAAT NEGATIVE SARS CoV-2 (NEGATIVE)
[2024-06-02 17:36] LABS: INFLUENZA TYPE A Negative For Type A (NEGATIVE); INFLUENZA TYPE B Negative For Type B (NEGATIVE)
[2024-06-02] MEDS: AZITHROMYCIN 500MG+NS 250ML 250 ML IVPB SCH (18:18)
[2024-06-02] MEDS: cefTRIAXone 1G VIAL IVPB ONE (18:18)
[2024-06-02] MEDS: 0.9%NACL 1000ML 1,000 ML IV SCH ×2 (19:04→19:39)
--- NOTE | 2024-06-02 19:16 | NUR ---
CARE TRANSFERRED TO LANE RN
[2024-06-02] MEDS ORDERED: cefTRIAXone 1G VIAL 1 GM in 0.9%NACL 50ML 50 ML IV SCH (19:30)
[2024-06-02] MEDS: AZITHROMYCIN 500MG+NS 250ML 250 ML IV SCH (19:30)
[2024-06-02] MEDS ORDERED: acetaMINOPHEN 325 MG TAB PO PRN (19:30)
--- NOTE | 2024-06-02 19:54 | HP ---
[facility] HISTORY [facility] PHYSICAL Date of Service: Jun 02, 2024 Time of Service: 19:02 PCP: Andrew Love HISTORY OF PRESENT ILLNESS: This is a 48-year-old female with past medical history of diabetes, hypotension, anemia, pericarditis, neuropathy, constipation, endometrial cancer status post chemotherapy and immunotherapy who was brought by EMS to the ED for complaints of generalized body weakness and loss of appetite for two days. As per who was present at bedside during my evaluation patient was walking towards the restroom,she reportedly got dizzy and almost fainted and caught her as he was present during the event and he laid patient down on the floor and called the ambulance.Patient was having nausea and vomiting started today she has approximately 4 episodes of bilious vomitus she said.Patient is unable to keep anything down for the past 2 days and has not been drinking enough fluids as well.As per patient was recently discharged from this facility on 05/09/2024 for pericarditis and sepsis.Patient states her oncologist is but she is not seeing him anymore because she started getting sick after she was on immunotherapy she said.Patient has a left portacath.Reportedly patient was hypoxic ,tachycardic and hypotensive per EMS . Seen and examined patient in the ER,awake alert,pale,weak and ill appearing .Patient denies fever,chills,cough,chest pain,palpitation ,abdominal pain and diarrhea. Latest vital signs temperature 99.5, heart rate 150, blood pressure 103/52 saturation 98% on 4 L nasal cannula. Labs: WBC 12.4 negative left shift of neutrophils 79 hemoglobin 9.7, hematocrit 30 platelet count 158. Sodium 132, chloride 99, BUN 21, creatinine 1.5, GFR 43 glucose 83 lactic acid 1.9 total bilirubin 1.9 total protein 5.9 albumin 2.3 troponin 11 procalcitonin 5.9. We will [place] type a and B negative SARs COVID negative rapid strep negative. ECG result revealed sinus tachycardia heart rate 145 with multiple premature complexes. Chest x-ray result revealed mild bilateral pulmonary infiltrates are seen may be related to mild pulmonary vascular congestion with possible superimposed pneumonitis. While in the ER patient received fluid resuscitation of LR 30 mL per kg over 3 hours, patient was given Rocephin 1 g and azithromycin IV , Zofran 4 mg IV and patient was started on Levophed drip. We will admit patient to ICU for further medical management. REVIEW OF SYSTEMS CONSTITUTIONAL: Denies fevers, chills, or night sweats. No unintentional weight loss reported. NEUROLOGICAL: Complaints of generalized body weakness Denies headache, amaurosis fugax, sensory deficit, vertigo/spinning sensation, gait abnormalities, or tremors. ENT: No hearing loss, otalgia, otorrhea, rhinitis, rhinorrhea, hoarseness, or sore throat. CARDIOVASCULAR: Denies any exertional angina, dyspnea on exertion, orthopnea, paroxysmal nocturnal dyspnea, palpitations, life-threatening arrhythmias, cla udication. PULMONARY: Denies any shortness of breath, cough, phlegm/sputum, hemoptysis, pleuritic chest pain. SLEEP: Denies morning headaches, daytime somnolence or napping. Denies difficulty falling asleep, staying asleep, waking from sleep. Denies knowledge of snoring. GASTROINTESTINAL: Complains of loss of appetite, nausea and vomiting Denies any type of dysphagia to either liquids or solids. Denies pyrosis, early satiety, abdominal pain, diarrhea, constipation, or changes in stool consistency or caliber. Denies coffee-ground emesis, hematemesis, hematochezia, or melanotic stools. GENITOURINARY: Denies frequency, urgency, nocturia, hematuria or incontinence (Storage/Irritative symptoms.) Low urinary stream, straining to void, urinary intermittency or hesitancy, splitting of the voiding stream, terminal dribbling. ENDOCRINOLOGIC: Denies polyuria, polydipsia, polyphagia or heat/cold intolerances. HEMATOLOGIC: Denies thrombophilia/previous clots, or coagulopathy/bleeding disorders. ONCOLOGIC: Denies personal history of malignancy. DERMATOLOGIC: Denies rashes or pruritus. PSYCHIATRIC: Denies any suicidal or homicidal ideation. Denies hallucinations. PAST MEDICAL HISTORY: [ Endometrial cancer status post chemotherapy August 25, 2023 for four months and immunotherapy received April 06 2024, pericarditis diabetes, hypotension, anemia, neuropathy, constipation. ] PAST SURGICAL HISTORY: [ Hysterectomy endometrial cancer removal 2023 and left Port-A-Cath placement ] PAST SOCIAL HISTORY: [Patient lives with . Patient denies alcohol tobacco and recreational drug use. ] FAMILY HISTORY: [Hypertension and diabetes ] Coded Allergies: No Known Drug Allergies (Unverified Allergy, Unknown, 04/20/23) PHYSICAL EXAM GENERAL APPEARANCE: Patient appears generally weak and pale looking The patient is awake, alert, and oriented, in no acute cardiopulmonary distress NEUROLOGICAL: Cranial nerves II-XII grossly intact. Motor is 4/4 in bilateral upper and lower extremities proximal to distal. No sensory deficits. HEENT: Face is symmetric. Pupils are equal and reactive. Extraocular movements are intact. NECK: Supple. No JVD. No thyromegaly. No submental, submandibular, pre- /postauricular, occipital or supraclavicular lymphadenopathy. CHEST: Normal chest expansion. No Telemetry. LUNGS: Absence of any rales, rhonchi or any wheezing. CARDIOVASCULAR: Tachycardic Regular. S1 and S2 normal. No appreciable rubs, murmurs or gallops. ABDOMEN: Soft, nontender, and nondistended. There is no rebound, voluntary guarding, or rigidity. : Deferred. No Ribeiro. EXTREMITIES: Non-edematous and not cyanotic. No clubbing. Good capillary refill. SKIN: No skin breakdown. Vital Sign (Last 24 Hours) 06/02/24 06/02/24 06/02/24 17:17 18:13 18:40 Temp 99.5 Pulse 150 Resp 20 B/P (MAP) 103/52 Pulse Ox 98 O2 Delivery Nasal Cannula* O2 Flow Rate 4 FiO2 36 LABS: Laboratory: Test 06/02/24 17:14 06/02/24 16:48 06/02/24 15:36 Range/Units Group A Streptococcus Rapid negative NEGATIVE Influenza Type A Antigen Negative For Type A NEGATIVE Influenza Type B Antigen Negative For Type B NEGATIVE SARS-CoV-2, RNA, NAAT NEGATIVE SARS CoV-2 NEGATIVE White Blood Count 12.4 H 4.8-10.8 K/uL Red Blood Count 3.28 L 4.00-5.50 MIL/uL Hemoglobin 9.7 L 12.0-16.0 g/dL Hematocrit 30.3 L 36-48 % Mean Corpuscular Volume 92.4 79-99 fL Mean Corpuscular Hemoglobin 29.6 27.0-33.0 pg Mean Corpuscular Hemoglobin Concent 32.0 32.0-36.0 g/dL Red Cell Distribution Width 15.7 H 11.0-15.5 % Platelet Count 158 130-400 K/uL Mean Platelet Volume 9.2 7.5-10.5 fL Immature Granulocyte % (Auto) 0.5 0-1 % Neutrophils (%) (Auto) 79.3 H 40.0-77.0 % Lymphocytes (%) (Auto) 13.0 L 21.0-51.0 % Monocytes (%) (Auto) 6.4 3.0-13.0 % Eosinophils (%) (Auto) 0.6 0.0-8.0 % Basophils (%) (Auto) 0.2 0.0-5.0 % Neutrophils # (Auto) 9.9 H 1.8-7.7 K/uL Lymphocytes # (Auto) 1.6 1.0-4.8 K/uL Monocytes # (Auto) 0.8 0.1-1.0 K/uL Eosinophils # (Auto) 0.08 0.00-0.70 K/uL Basophils # (Auto) 0.02 0.00-0.20 K/uL Absolute Immature Granulocyte (auto 0.06 0-1 K/uL Nucleated Red Blood Cells 0.0 0.0-0.19 % Sodium Level 132 L 136-145 mmol/L Potassium Level 4.8 3.5-5.1 mmol/L Chloride Level 99 L 101-111 mmol/L Carbon Dioxide Level 27 21-32 mmol/L Blood Urea Nitrogen 21 H 7-18 mg/dL Creatinine 1.5 H 0.5-1.0 mg/dL Glomerular Filtration Rate Calc 43 >90 mL/min Random Glucose 83 70-105 mg/dL Lactic Acid Level 1.9 0.8-2.5 mmol/L Total Calcium 8.9 8.5-10.1 mg/dL Total Bilirubin 1.9 H 0.2-1.0 mg/dL Aspartate Amino Transf (AST/SGOT) 18 10-37 U/L Alanine Aminotransferase (ALT/SGPT) 5 L 12-78 U/L Alkaline Phosphatase 89 50-136 U/L Total Creatine Kinase 90 21-232 U/L Troponin I High Sensitivity 11 4-50 ng/L Total Protein 5.9 L 6.0-8.3 g/dL Albumin 2.3 L 3.5-5.0 g/dL Lipase 8 L 16-77 U/L Procalcitonin 5.90 H 0.05-0.5 ng/mL Human Chorionic Gonadotropin, Quant 3 0-5 mIU/mL Current Medications Medications (Trade) Dose Ordered Sig/Mina Route PRN Reason Start Time Stop Time Status Last Admin Dose Admin Azithromycin 250 ml @ 250 mls/hr Q24H IVPB 06/02/24 18:00 06/12/24 17:59 06/02/24 18:18 250 MLS/HR Norepinephrine 250 ml @ 0 mls/hr PROTOCOL IV 06/02/24 16:00 07/02/24 15:59 06/02/24 18:40 120 MLS/HR Sodium Chloride 1,000 ml @ 100 mls/hr Q10H IV 06/02/24 19:00 07/02/24 18:59 DIAGNOSTICS / RADIOLOGY: [ ] ASSESSMENT: Acute respiratory failure without mechanical ventilation POA Septic shock requiring vasopressor POA Suspected community-acquired pneumonia POA Dehydration POA Failure to thrive POA Acute kidney injury POA Protein calorie malnutrition POA Chronic anemia POA Endometrial cancer status post chemotherapy and immunotherapy POA PLAN: We will admit patient in ICU We will start patient on full liquid diet advanced as tolerated We will start NS @ 100 ml / hr and re evaluate We will continue Levophed drip to keep MAP above 65 mmHg We will start patient on Rocephin and azithromycin for broad-spectrum coverage We will start on Famotidine 20 mg bid for GI prophylaxis We will replace electrolytes as needed per protocol We will add prn medication for fever,pain,nausea and vomiting We will reconcile home meds once medlist available We will request case management service We will request dietary consultation to assess for malnutrition We will seek critical care consultation Fall precaution We will request urinalysis and urine drug screen and we will follow-up result We will request labs in am Further orders to follow depending on above results Case discussed with attending physician and came up with above treatment and plan of care. ADVANCED CARE PLANNING 1. Which of the following were discussed? Hospice Care - No Therapeutic options - Yes Advance Directives - No Other discussions - 2. Discussed with who? PATIENT AND 3. Voluntary nature of this service was explained to the patient? Yes 4. Amount of time spent - __20 5. Reviewed by Physician? (if this service was performed by NPP) Yes ADDENDUM: - discontinue current antibiotics they need to be broadened - start vancomycin - start cefepime - we will order echocardiogram to assess reaccumulation of pericardial effusion - resume home medications ATTENDING PHYSICIAN ATTESTATION: I have seen the [facility] plan. I have independently seen, reviewed and made my own assessment of the patient. See my addendum for updates to the [facility]'s medical plan MD JULIETA Sotelo [facility] Jun 02, 2024 19:54 RICH RUFF MD Jun 03, 2024 11:52
[2024-06-02] MEDS: cefTRIAXone 1G VIAL IVPB SCH (19:57)
--- NOTE | 2024-06-02 20:50 | CONS ---
[facility] CONSULTATION NOTE Date Patient Seen: Jun 02, 2024 Time of Visit: 20:50 Supervising Physician: Dr. Roberto Carlos Clark Reason for Consultation: [facility] Primary Care Physician: Attending: [facility] hospitalist team Outpatient Specialists: Inpatient Consults: [facility], critical Care team PROBLEM LIST: Sepsis with septic shock, POA requiring two pressors Acute respiratory failure, POA Severe dehydration/ hypovolemia, POA Acute nausea, vomiting, diarrhea, POA Frailty/debility/general body weakness Failure to thrive, POA Acute kidney injury, POA, GFR 43 (GFR 108 on 05/09/2024) Protein calorie malnutrition/hypoalbuminemia Acute on chronic anemia leukocytosis Electrolyte derangement (hyponatremia, hypochloremia) Endometrial cancer status post chemo and immunotherapy, POA Leukocytosis Chronic problem list: diabetes, hypotension, anemia, pericarditis, neuropathy, constipation HPI: Ms. Valencia is a 48-year-old female with medical history of diabetes, hypotension, anemia, pericarditis, neuropathy, constipation, endometrial cancer status post chemotherapy and immunotherapy who was brought to [facility] by EMS for evaluation of generalized body weakness and loss of appetite for two days. EMS reported that the patient was hypoxic, tachycardic, and hypotensive. She also reported that today she started with nausea and vomiting, vomited x4. . Patient is unable to keep anything down for the past 2 days and has not been drinking enough fluids as well. As per the patient was walking towards the restroom when she got dizzy and almost fainted. The caught her, laid patient down on the floor, and called the ambulance. As per patient was recently discharged from this facility on 05/09/2024 for pericarditis and sepsis. Patient states her oncologist is but she is not seeing him anymore because she started getting sick after she was on immunotherapy. Patient has a left portacath. Patient denies fever, chills, cough, chest pain, palpitation, abdominal pain and diarrhea. ED provider request patient be admitted with the diagnosis of dehydration, tachycardia, hypotension. The patient was admitted by the [facility] Hospitalist team, and [facility] team was consulted for critical care management. Per chart review: Multiple ED visits: March 26, 2024 ED discharge with diagnosis of vomiting & dehydration, admitted April 07, 2024 dehydration, and admitted on May 04, 2024 for tachycardia/sirs. I assessed the patient in ER 1. Patient appeared lethargic, weak, ill- appearing. Breathing was even, unlabored, in no distress. The patient was on Levophed and Shon-Synephrine with systolic blood pressure 112, heart rate 146 bpm . Latest vital signs temperature 99.5, 98% on 4 L nasal cannula. Labs: WBC 12.4 negative left shift of neutrophils 79 hemoglobin 9.7, hematocrit 30 platelet count 158. Sodium 132, chloride 99, BUN 21, creatinine 1.5, GFR 43 glucose 83 lactic acid 1.9 total bilirubin 1.9 total protein 5.9 albumin 2.3 troponin 11 procalcitonin 5.9. Flu A and B negative, SARs COVID negative rapid strep negative. ECG result revealed sinus tachycardia heart rate 145 with multiple premature complexes. Chest x-ray: Mild bilateral pulmonary infiltrates are seen may be related to mild pulmonary vascular congestion with possible superimposed pneumonitis. The ED administered NS2 L bolus, patient was given Rocephin 1 g and azithromycin IV, Zofran 4 mg IV and patient was started on Levophed IV drip. Addendum 06/03/24: RN reports the patient has had 3 loose green BMs. RN reports 4 liters in with ml of urine output. PAST MEDICAL HISTORY: [ Endometrial cancer status post chemotherapy August 25, 2023 for four months and immunotherapy received April 06 2024, pericarditis diabetes, hypotension, anemia, neuropathy, constipation. ] PAST SURGICAL HISTORY: [ Hysterectomy endometrial cancer removal 2023 and left Port-A-Cath placement ] PAST SOCIAL HISTORY: [Patient lives with . Patient denies alcohol tobacco and recreational drug use. ] FAMILY HISTORY: [Hypertension and diabetes ] Coded Allergies: No Known Drug Allergies (Unverified Allergy, Unknown, 04/20/23) REVIEW OF SYSTEMS: 12 point ROS reviewed with patient. Pertinent positives mentioned above. Otherwise negative. PHYSICAL EXAM: GENERAL: Alert, weak, awake oriented x 3 HEENT: EOMI, Sclera non icteric, moist mucosa NECK: Supple, no JVD, trachea midline LUNGS: Clear breath sounds bilaterally. No wheezes HEART: Regular rate and rhythm. Normal S1 and S2, without murmurs ABD: Abdomen soft, nontender. Bowel sounds present EXT: No clubbing cyanosis or edema NEURO: Alert and oriented X3, follows commands Vital Signs (last 8hr) Date Time Temp Pulse Resp B/P (MAP) Pulse Ox O2 Delivery O2 Flow Rate FiO2 06/02/24 20:30 146 20 91/62 98 Nasal Cannula* 3 32 06/02/24 20:00 153 24 120/77 98 Nasal Cannula* 3 32 06/02/24 19:58 78/47 06/02/24 19:45 145 22 48/53 98 Nasal Cannula* 3 32 06/02/24 19:30 151 20 105/56 98 Nasal Cannula* 3 32 06/02/24 19:15 98.2 151 20 101/53 98 Nasal Cannula* 3 32 06/02/24 18:40 103/52 06/02/24 18:13 150 20 103/52 98 Nasal Cannula* 4 36 06/02/24 17:36 148 22 64/32 98 Nasal Cannula* 4 36 06/02/24 17:17 99.5 150 21 90/51 98 Nasal Cannula* 4 36 06/02/24 16:53 142 22 82/52 98 Nasal Cannula* 4 36 06/02/24 16:45 99.1 144 20 71/41 98 Nasal Cannula* 4 36 06/02/24 16:29 99.0 141 20 58/33 98 Nasal Cannula* 4 36 06/02/24 16:28 58/33 06/02/24 15:35 99.7 144 18 61/33 98 Nasal Cannula* 4 36 06/02/24 15:01 97.7 141 25 113/77 94 Nasal Cannula 3.0 LABS: Hematology Labs: Test 06/02/24 15:36 Range/Units White Blood Count 12.4 H 4.8-10.8 K/uL Red Blood Count 3.28 L 4.00-5.50 MIL/uL Hemoglobin 9.7 L 12.0-16.0 g/dL Hematocrit 30.3 L 36-48 % Mean Corpuscular Volume 92.4 79-99 fL Mean Corpuscular Hemoglobin 29.6 27.0-33.0 pg Mean Corpuscular Hemoglobin Concent 32.0 32.0-36.0 g/dL Red Cell Distribution Width 15.7 H 11.0-15.5 % Platelet Count 158 130-400 K/uL Mean Platelet Volume 9.2 7.5-10.5 fL Immature Granulocyte % (Auto) 0.5 0-1 % Neutrophils (%) (Auto) 79.3 H 40.0-77.0 % Lymphocytes (%) (Auto) 13.0 L 21.0-51.0 % Monocytes (%) (Auto) 6.4 3.0-13.0 % Eosinophils (%) (Auto) 0.6 0.0-8.0 % Basophils (%) (Auto) 0.2 0.0-5.0 % Neutrophils # (Auto) 9.9 H 1.8-7.7 K/uL Lymphocytes # (Auto) 1.6 1.0-4.8 K/uL Monocytes # (Auto) 0.8 0.1-1.0 K/uL Eosinophils # (Auto) 0.08 0.00-0.70 K/uL Basophils # (Auto) 0.02 0.00-0.20 K/uL Absolute Immature Granulocyte (auto 0.06 0-1 K/uL Nucleated Red Blood Cells 0.0 0.0-0.19 % Chemistry Labs: Test 06/02/24 15:36 Range/Units Sodium Level 132 L 136-145 mmol/L Potassium Level 4.8 3.5-5.1 mmol/L Chloride Level 99 L 101-111 mmol/L Carbon Dioxide Level 27 21-32 mmol/L Blood Urea Nitrogen 21 H 7-18 mg/dL Creatinine 1.5 H 0.5-1.0 mg/dL Glomerular Filtration Rate Calc 43 >90 mL/min Random Glucose 83 70-105 mg/dL Lactic Acid Level 1.9 0.8-2.5 mmol/L Total Calcium 8.9 8.5-10.1 mg/dL Total Bilirubin 1.9 H 0.2-1.0 mg/dL Aspartate Amino Transf (AST/SGOT) 18 10-37 U/L Alanine Aminotransferase (ALT/SGPT) 5 L 12-78 U/L Alkaline Phosphatase 89 50-136 U/L Total Creatine Kinase 90 21-232 U/L Troponin I High Sensitivity 11 4-50 ng/L Total Protein 5.9 L 6.0-8.3 g/dL Albumin 2.3 L 3.5-5.0 g/dL Lipase 8 L 16-77 U/L Procalcitonin 5.90 H 0.05-0.5 ng/mL Human Chorionic Gonadotropin, Quant 3 0-5 mIU/mL DIAGNOSTICS / RADIOLOGY RESULTS: [ ] PLAN The patient was admitted to ICU under the catalyst team and BIS as critical care consult. Continuous cardiac monitoring, pulse oximetry monitoring, and fall precautions. V/S per ICU. Continue shon IV drip and norepinephrine IV drip to keep the map above 65 mmHg. Oxygen supplementation as needed to keep SpO2 equal to or greater than 92%. Insert Ribeiro for accurate I&O in this critical ill patient. X2 NS bolus after admission. (ED administered2 L of NS) Continue NS at 100 mL an hour. Rocephin2 g IV daily. Zithromax 500 mg IV daily. Obtain ABGs. Obtain stool for C diff, culture, WBC. Consult Nephrology for acute kidney injury, decreased urine output. Monitor electrolytes and treat accordingly. Monitor renal and liver function. Reconcile home meds once available. P.r.n. medications for: Pain management, nausea, and vomiting. DVT and GI prophylaxis: Pepcid and A.m. labs: CBC, BNP, Mag, phos, TSH, A1c. Further orders depending on hospitalization course. NEURO: Minimize central acting medications as possible. Fall Precautions. Well lighted room through the day and minimize interruptions through the night to prevent acute delirium. PULMONARY: Supplemental 02 as needed Titrate Fio2 to keep Spo2 > or = 90% DuoNebs and CPT as needed IS hourly while awake for pulmonary hygiene Out of bed to chair as tolerated VAP Bundle CARDIOVASCULAR: Follow hemodynamics. Titrate vasopressor to keep MAP >65 or systolic blood pressure >95mmHg GI & NUTRITION: Continue nutritional support Aspirations precautions Prokinetic agents and laxatives as needed KIDNEYS & ELECTROLYTES: Strict monitoring of intake and output Daily weights Avoid nephrotoxic agents Monitor electrolytes and replace as needed Goal urine output of 30mL/hr or 0.5mL/kg/hr ENDOCRINE: Maintain blood glucose between 100-180 at all times. Insulin sliding scale for blood glucose management INFECTIOUS DISEASE: Trend temperature. Beckwith-culture if febrile. HEMATOLOGY & COAGULATION: Monitor H&H. Keep Hgb > 7 Transfuse 1 unit of PRBC for Hgb < 7 Transfuse 1 pack of platelets of platelets < 20, 000 Watch for any signs and symptoms of bleeding SKIN: Pressure ulcer prevention per facility protocol Rehab: PT/OT Code Status: Full Resuscitation Disposition: [Admit to ICU] Other: Total patient critical care time exceeds 45 minutes excluding all procedures. FLORES POSADA Jun 02, 2024 20:50
[2024-06-02] MEDS: phenylEPHRINE HCL 10 MG in 0.9% NACL 250ML 250 ML IV SCH (20:59)
[2024-06-02 21:28] LABS: APPEARANCE,URINE TURBID (CLEAR); BILIRUBIN,URINE 0.5 mg/dL (NEGATIVE); COLOR,URINE YELLOW (YELLOW); GLUCOSE, URINE (UA) NEGATIVE (NEGATIVE); KETONES,URINE NEGATIVE (NEGATIVE); LEUKOCYTE ESTERASE ,URINE 250 Leu/uL (NEGATIVE); NITRATE,URINE NEGATIVE (NEGATIVE); PH,URINE 5.5 (5.0-8.0); PROTEIN,URINE 100 mg/dL (NEGATIVE); UROBILINOGEN,URINE 0.2 mg/dL (0.2-1.0)
[2024-06-02 21:32] LABS: ADD UA MICROSCOPIC YES; BACTERIA,URINE FEW /HPF (None Seen); MUCUS,URINE FEW LPF (None Seen); NON-SQUAMOUS EPITHELIAL CELL 2 /HPF (0-2); OTHER CASTS, URINE 4 /LPF (None Seen); SQUAMOUS EPITHELIAL CELL,UR FEW /HPF (0-2); UNCLASSIFIED CRYSTAL 4 /HPF (None Seen); WBC CLUMP FEW /HPF (0-1); WBC,URINE 26-50 /HPF (0-1); YEAST,URINE BUDDING FEW /HPF (None Seen)
[2024-06-02 21:33] LABS: HCG,QUALITATIVE URINE NEGATIVE (NEGATIVE)
[2024-06-02] MEDS: 0.9%NACL 1000ML 1,000 ML IV ONE ×2 (21:34→23:13)
[2024-06-02] MEDS: LIDOCAINE/PRILOCAINE CREAM 5GM TUBE TP ONE (21:34)
[2024-06-02 21:35] LABS: AMPHET/METH SCREEN,URINE NEGATIVE (NEGATIVE); BARBITURATE SCREEN, URINE NEGATIVE (NEGATIVE); BENZODIAZEPINES SCREEN,URINE NEGATIVE (NEGATIVE); CANNABINOID SCREEN,URINE NEGATIVE (NEGATIVE); COCAINE SCREEN,URINE NEGATIVE (NEGATIVE); OPIATE SCREEN,URINE NEGATIVE (NEGATIVE); PHENCYCLIDINE SCREEN,URINE NEGATIVE (NEGATIVE)
--- NOTE | 2024-06-02 23:11 | NUR ---
CRITICAL CARE TEAM CRITICAL CARE TEAM NOTIFIED OF VASOPRESSORS CHRISTELLE AT MAX 3MCG/KG/MIN, LEVO AT 0.2 MCG/KG/MIN UNABLE TO WEAN WITH NO URINE OUTPUT. ORDER RECEIVED FOR 1 LITER NS BOLUS. WILL CONTINUE TO MONITOR
[2024-06-03] VITALS (85 sets, daily range): BP systolic 50–167; BP diastolic 24–100; PULSE 100–131; RESP 6–59; TEMP 97.7–99; O2SAT 93–98
[2024-06-03 00:27] LABS: ABG OXYGEN SATURATION 69.9 % (94.0-98.0); BASE EXCESS,VENOUS BLOOD GAS -8.6 (-2.0-3.0); HCO3,VENOUS BLOOD GAS 18.7 (22.0-29.0); PCO2,VENOUS BLOOD GAS 46 (38-54); PH,VENOUS BLOOD GAS 7.226 (7.320-7.430); PO2,VENOUS BLOOD GAS 42.6 mmHg (23.0-48.0); VENT MODE, BG NC (ROOM AIR)
[2024-06-03] MEDS: phenylEPHRINE HCL 100 MG in 0.9% NACL 250ML 250 ML IV SCH (00:28)
[2024-06-03] MEDS: NOREPINEPHRINE 16MG/NS 250ML PREMIX IV SCH (00:40)
[2024-06-03] MEDS: HEParin 5,000 UNIT VIAL SQ SCH (01:01)
[2024-06-03] MEDS: ALBUMIN (HUMAN) 5% 250 ML IV SCH (01:15)
[2024-06-03] MEDS: SODIUM BICARB 50MEQ 50ML VIAL IV ONE (01:15)
[2024-06-03] MEDS ORDERED: INDO-15 PO (03:38)
[2024-06-03] MEDS ORDERED: TRAM50TA4 PO (03:38)
[2024-06-03] MEDS ORDERED: POTA-202 PO (03:38)
[2024-06-03] MEDS ORDERED: OMEP20CA12 PO (03:38)
[2024-06-03] MEDS ORDERED: ONDA-243 PO (03:39)
[2024-06-03 04:00] LABS: BASOPHILS # (AUTO) 0.03 K/uL (0.00-0.20); BASOPHILS % (AUTO) 0.3 % (0.0-5.0); EOSINOPHILS # (AUTO) 0.01 K/uL (0.00-0.70); EOSINOPHILS % (AUTO) 0.1 % (0.0-8.0); HEMATOCRIT 31.1 % (36-48); IMMATURE GRANULOCYTE ABSOLUTE 0.06 K/uL (0-1); LYMPHOCYTES # (AUTO) 1.9 K/uL (1.0-4.8); LYMPHOCYTES % (AUTO) 16.9 % (21.0-51.0); MEAN CORPUSCULAR HEMOGLOBIN 29.4 pg (27.0-33.0); MEAN CORPUSCULAR HGB CONC 31.8 g/dL (32.0-36.0); MEAN CORPUSCULAR VOLUME 92.3 fL (79-99); MONOCYTES # (AUTO) 0.8 K/uL (0.1-1.0); MONOCYTES % (AUTO) 7.5 % (3.0-13.0); NEUTROPHILS # (AUTO) 8.4 K/uL (1.8-7.7); NEUTROPHILS % (AUTO) 74.7 % (40.0-77.0); PLATELET COUNT (AUTO) 159 K/uL (130-400); RED BLOOD CELL COUNT(AUTO) 3.37 MIL/uL (4.00-5.50); RED CELL DISTRIBUTION WIDTH 15.7 % (11.0-15.5); WHITE BLOOD COUNT (AUTO) 11.2 K/uL (4.8-10.8)
[2024-06-03 04:11] LABS: ALBUMIN 2.3 g/dL (3.5-5.0); BILIRUBIN,TOTAL 1.5 mg/dL (0.2-1.0); CREATININE 1.3 mg/dL (0.5-1.0); MAGNESIUM 1.2 mg/dL (1.80-2.40); POTASSIUM 4.6 mmol/L (3.5-5.1); TOTAL PROTEIN, SERUM 5.5 g/dL (6.0-8.3)
[2024-06-03] MEDS: IpraTROPium/alBUTERol SULFATE 3 ML SOLUTION IH ONE ×2 (05:41→06:53)
[2024-06-03] MEDS: MAGNESIUM 2GM PREMIX 50ML 50 ML IV PRN (06:55)
[2024-06-03] MEDS ORDERED: VANCOMYCIN PROTOCOL PER PHARMACY IV SCH (07:00)
[2024-06-03] MEDS: ceFEPime HCL 2 GM VIAL IVPB SCH (07:15)
[2024-06-03] MEDS: ondanSETRON 4MG INJ IV PRN (07:24)
--- NOTE | 2024-06-03 08:25 | HMCIMG ---
CHEST 1VW HISTORY: Shortness of breath COMPARISON: 06/02/2024 FINDINGS: A frontal projection of the chest was obtained. There are bilateral pulmonary infiltrates suggestive of pulmonary vascular congestion with possible superimposed pneumonitis. The heart is borderline enlarged. Port-A-Cath is seen entering from the left. No evidence of aortic calcification is seen. IMPRESSION: 1. Bilateral pulmonary infiltrates are seen suggestive of pulmonary vascular congestion with possible superimposed pneumonitis.
[2024-06-03] MEDS: VANCOMYCIN 1.5 GM/250 ML BAG 250 ML IV ONE (08:40)
[2024-06-03] MEDS: FAMOTIDINE 20MG VIAL IV SCH (09:21)
[2024-06-03] MEDS: GABApentin 100 MG CAPSULE PO SCH (09:22)
[2024-06-03] MEDS: COLCHicine 0.6 MG TABLET PO SCH (09:22)
[2024-06-03] MEDS: CYANOCOBALAMIN (VITAMIN B-12) 1,000 MCG TABLET PO SCH (09:24)
--- NOTE | 2024-06-03 11:24 | NUR ---
DC PLAN VISITED WITH PATIENT. PATIENT IN ICU TIRED. ANSWERED MINIMAL QUESTIONS. PATIENT LIVES WITH SPOUSE. INDEPENDENT ABLE TO PERFORM ADL'S. PATIENT HAS NO SERVICES OR DME'S. FEELS SAFE TO RETURN HOME. Addendum: 06/03/24 at 1126 by LOGAN ADAMS RN CM Amended: Links added.
--- NOTE | 2024-06-03 12:07 | PN ---
[facility] PROGRESS NOTE Date of Service: Jun 03, 2024 Time of Service: 11:56 SUBJECTIVE: 06/03 patient seen at bedside, no acute events overnight. She is on a low dose of pressors, we will wean as able. WBC improved from 12.4 down to 11.2, hemoglobin improved from 9.7 up to 9.9, creatinine improved from 1.5 down to 1.3, CRP elevated at 197.6, remainder of her labs are relatively unremarkable. REVIEW OF SYSTEMS 12 point review of systems negative unless noted in HPI PHYSICAL EXAM GENERAL APPEARANCE: Patient appears generally weak and pale looking The patient is awake, alert, and oriented, in no acute cardiopulmonary distress NEUROLOGICAL: Cranial nerves II-XII grossly intact. Motor is 4/4 in bilateral upper and lower extremities proximal to distal. No sensory deficits. HEENT: Face is symmetric. Pupils are equal and reactive. Extraocular movements are intact. NECK: Supple. No JVD. No thyromegaly. No submental, submandibular, pre-/postauricular, occipital or supraclavicular lymphadenopathy. CHEST: Normal chest expansion. No Telemetry. LUNGS: Absence of any rales, rhonchi or any wheezing. CARDIOVASCULAR: Tachycardic Regular. S1 and S2 normal. No appreciable rubs, murmurs or gallops. ABDOMEN: Soft, nontender, and nondistended. There is no rebound, voluntary guarding, or rigidity. : Deferred. No Ribeiro. EXTREMITIES: Non-edematous and not cyanotic. No clubbing. Good capillary refill. SKIN: No skin breakdown. Vital Signs (last 8hr) Date Time Temp Pulse Resp B/P (MAP) Pulse Ox O2 Delivery O2 Flow Rate FiO2 06/03/24 10:30 108 16 116/62 (80) 96 06/03/24 10:15 106 16 96 06/03/24 10:00 106 16 96 06/03/24 09:45 107 22 123/58 (79) 94 06/03/24 09:30 111 19 115/57 (76) 92 06/03/24 09:15 114 26 121/87 (98) 96 06/03/24 09:00 106 26 120/73 (89) 95 06/03/24 08:45 110 27 133/74 (93) 100 06/03/24 08:30 111 13 111/54 (73) 95 06/03/24 08:15 109 9 123/52 (75) 96 06/03/24 08:00 104 19 87/67 (74) 98 06/03/24 08:00 98.2 06/03/24 08:00 98 Nasal Cannula* 1 24 06/03/24 07:45 104 19 70/24 (39) 98 06/03/24 07:30 132/80 06/03/24 07:30 107 21 103/63 (76) 98 06/03/24 07:15 112 18 130/53 (78) 98 06/03/24 07:00 112 28 167/100 (122) 98 06/03/24 06:00 120 21 131/68 (89) 96 28 06/03/24 05:45 117 17 136/74 (94) 99 06/03/24 05:30 114 23 157/86 (109) 99 06/03/24 05:15 114 23 142/78 (99) 98 06/03/24 05:00 110 15 101/61 (74) 98 24 06/03/24 04:45 118 19 136/84 (101) 98 06/03/24 04:30 112 24 115/72 (86) 93 06/03/24 04:15 112 24 115/72 (86) 93 06/03/24 04:00 96 Nasal Cannula* 1 24 06/03/24 04:00 120 27 113/77 (89) 96 24 LABS: Laboratory: Test 06/03/24 05:50 06/03/24 03:46 06/03/24 00:30 06/03/24 00:26 Range/Units C. difficile Antigen and Toxins A,B See comments NEG White Blood Count 11.2 H 4.8-10.8 K/uL Red Blood Count 3.37 L 4.00-5.50 MIL/uL Hemoglobin 9.9 L 12.0-16.0 g/dL Hematocrit 31.1 L 36-48 % Mean Corpuscular Volume 92.3 79-99 fL Mean Corpuscular Hemoglobin 29.4 27.0-33.0 pg Mean Corpuscular Hemoglobin Concent 31.8 L 32.0-36.0 g/dL Red Cell Distribution Width 15.7 H 11.0-15.5 % Platelet Count 159 130-400 K/uL Mean Platelet Volume 9.4 7.5-10.5 fL Immature Granulocyte % (Auto) 0.5 0-1 % Neutrophils (%) (Auto) 74.7 40.0-77.0 % Lymphocytes (%) (Auto) 16.9 L 21.0-51.0 % Monocytes (%) (Auto) 7.5 3.0-13.0 % Eosinophils (%) (Auto) 0.1 0.0-8.0 % Basophils (%) (Auto) 0.3 0.0-5.0 % Neutrophils # (Auto) 8.4 H 1.8-7.7 K/uL Lymphocytes # (Auto) 1.9 1.0-4.8 K/uL Monocytes # (Auto) 0.8 0.1-1.0 K/uL Eosinophils # (Auto) 0.01 0.00-0.70 K/uL Basophils # (Auto) 0.03 0.00-0.20 K/uL Absolute Immature Granulocyte (auto 0.06 0-1 K/uL Nucleated Red Blood Cells 0.0 0.0-0.19 % Sodium Level 141 136-145 mmol/L Potassium Level 4.6 3.5-5.1 mmol/L Chloride Level 110 101-111 mmol/L Carbon Dioxide Level 24 21-32 mmol/L Blood Urea Nitrogen 18 7-18 mg/dL Creatinine 1.3 H 0.5-1.0 mg/dL Glomerular Filtration Rate Calc 51 >90 mL/min Random Glucose 74 70-105 mg/dL Total Calcium 7.6 L 8.5-10.1 mg/dL Magnesium Level 1.20 L 1.80-2.40 mg/dL Total Bilirubin 1.5 #H 0.2-1.0 mg/dL Aspartate Amino Transf (AST/SGOT) 188 H 10-37 U/L Alanine Aminotransferase (ALT/SGPT) 54 # 12-78 U/L Alkaline Phosphatase 125 # 50-136 U/L Lactate Dehydrogenase 275 H 81-234 U/L C-Reactive Protein, Quantitative 197.60 H 0.5-3.0 mg/L B-Type Natriuretic Peptide 82 0-100 pg/mL Total Protein 5.5 L 6.0-8.3 g/dL Albumin 2.3 L 3.5-5.0 g/dL Stool Lactoferrin (JOSEP) POSITIVE H NEGATIVE Blood Gas Specimen Type Venous Arterial Blood Oxygen Saturation 69.9 L 94.0-98.0 % Venous Blood pH 7.226 L 7.320-7.430 Venous Blood pCO2 at Patient Temp 46 38-54 Venous Blood pO2 at Patient Temp 42.6 23.0-48.0 mmHg Venous Blood HCO3 18.7 L 22.0-29.0 Venous Blood Base Excess -8.6 L -2.0-3.0 Venous Blood Total Hemoglobin 11.0 L 12.0-16.0 Sodium (Blood Gas) 136 136-145 MMOL/L Bedside Potassium (Blood Gas) 4.3 3.4-4.5 MMOL/L Bedside Chloride (Blood Gas) 110 H 98-107 MMOL/L Bedside Glucose (Blood Gas) 85 65-95 MG/DL Bedside Ionized Calcium (Blood Gas) 1.09 L 1.15-1.33 MMOL/L Bedside Lactic Acid (Blood Gas) 2.95 H 0.36-0.75 MMOL/L Blood Gas Temperature 37.0 35.5-37.0 CELSIUS Blood Gas Flow-by 3.00 0.00-15.00 L/min Blood Gas Vent Mode NC ROOM AIR FiO2 32.0 % Blood Gas Specimen Comment PRADEEP RN ,AL Test 06/02/24 21:19 06/02/24 17:14 06/02/24 16:48 06/02/24 15:36 Range/Units Urine Color YELLOW YELLOW Urine Appearance TURBID CLEAR Urine pH 5.5 5.0-8.0 Urine Specific [place] 1.020 1.001-1.031 Urine Protein 100 H NEGATIVE mg/dL Urine Glucose (UA) NEGATIVE NEGATIVE mg/dL Urine Ketones NEGATIVE NEGATIVE mg/dL Urine Occult Blood +- (TRACE) H NEGATIVE Urine Nitrate NEGATIVE NEGATIVE Urine Bilirubin 0.5 H NEGATIVE mg/dL Urine Urobilinogen 0.2 0.2-1.0 mg/dL Urine Leukocyte Esterase 250 H NEGATIVE Brittaney/uL Urine RBC 11-25 H 0-1 /HPF Urine WBC 26-50 H 0-1 /HPF Urine WBC Clumps (Auto) FEW 0-1 /HPF Urine Squamous Epithelial Cells FEW 0-2 /HPF Urine Non-Squamous Epithelial Cells 2 0-2 /HPF Urine Other Crystals (Auto) 4 None Seen /HPF Urine Bacteria FEW None Seen /HPF Urine Hyaline Casts 2-5 H 0-1 /LPF /LPF Urine Other Casts 4 None Seen /LPF Urine Yeast FEW None Seen /HPF Urine HCG, Qualitative NEGATIVE NEGATIVE Urine Opiates Screen NEGATIVE NEGATIVE Urine Barbiturates Screen NEGATIVE NEGATIVE Urine Phencyclidine Screen NEGATIVE NEGATIVE Urine Amphetamines Screen NEGATIVE NEGATIVE Urine Benzodiazepines Screen NEGATIVE NEGATIVE Urine Cocaine Screen NEGATIVE NEGATIVE Urine Marijuana (THC) Screen NEGATIVE NEGATIVE Group A Streptococcus Rapid negative NEGATIVE Influenza Type A Antigen Negative For Type A NEGATIVE Influenza Type B Antigen Negative For Type B NEGATIVE SARS-CoV-2, RNA, NAAT NEGATIVE SARS CoV-2 NEGATIVE Lactic Acid Level 1.9 0.8-2.5 mmol/L Total Creatine Kinase 90 21-232 U/L Troponin I High Sensitivity 11 4-50 ng/L Lipase 8 L 16-77 U/L Procalcitonin 5.90 H 0.05-0.5 ng/mL Human Chorionic Gonadotropin, Quant 3 0-5 mIU/mL Current Medications Medications (Trade) Dose Ordered Sig/Mina Route PRN Reason Start Time Stop Time Status Last Admin Dose Admin Acetaminophen (TYLenol 325MG TAB) 650 mg Q4H PRN PO MILD PAIN (1-3) 06/02/24 19:30 07/02/24 19:29 Acetaminophen (TYLenol 325MG TAB) 650 mg Q6H PRN PO TEMPERATURE GREATER THAN 101.5 06/02/24 19:30 07/02/24 19:29 Albumin Human 250 ml @ 100 mls/hr AD IV 06/03/24 01:00 06/08/24 00:59 06/03/24 01:15 100 MLS/HR Azithromycin 250 ml @ 250 mls/hr Q24H IV 06/02/24 19:30 06/02/24 19:57 DC Azithromycin 250 ml @ 250 mls/hr Q24H IVPB 06/02/24 18:00 06/03/24 06:48 DC 06/02/24 18:18 250 MLS/HR Cefepime HCl (MAXipime 2 gm vial) 2 gm Q24H IVPB 06/03/24 07:00 06/13/24 06:59 06/03/24 07:15 2 GM Ceftriaxone Sodium 1 gm/ Sodium Chloride 50 ml @ 100 mls/hr Q24H IV 06/02/24 19:30 06/02/24 19:36 DC Ceftriaxone Sodium (ROCEphine 1G INJ) 1 gm Q24H IVPB 06/02/24 20:00 06/03/24 00:08 DC Ceftriaxone Sodium (Rocephin 2gm Inj) 2 gm Q24H IVPB 06/03/24 17:30 06/03/24 06:50 DC Colchicine (COLCHicine 0.6mg TAB) 0.6 mg DAILY PO 06/03/24 09:00 07/03/24 08:59 06/03/24 09:22 0.6 MG Famotidine (Pepcid 20mg Vial) 20 mg DAILY IV 06/03/24 09:00 07/03/24 08:59 06/03/24 09:21 20 MG Gabapentin (NEURontin 100 mg CAP) 100 mg BID PO 06/03/24 09:00 07/03/24 08:59 06/03/24 09:22 100 MG Heparin Sodium (Porcine) (HEParin 5,000 UNIT VIAL) 5,000 unit Q12H SQ 06/03/24 00:30 07/03/24 00:29 06/03/24 01:01 5,000 UNIT Home Med (Home Medication) (Folic Acid 1 TAB) DAILY PO 06/03/24 09:00 07/03/24 08:59 Magnesium Sulfate 50 ml @ 0 mls/hr PROTOCOL PRN IV OTHER [SEE ORDER COMMENTS] 06/02/24 20:00 07/02/24 19:59 06/03/24 06:55 25 MLS/HR Norepinephrine 250 ml @ 0 mls/hr PROTOCOL IV 06/02/24 16:00 06/03/24 00:19 DC 06/02/24 22:52 48 MLS/HR Norepinephrine Bitartrate (Norepineph 16 Mg/250ml NS Premix) 0.1 PROTOCOL IV 06/03/24 00:30 07/03/24 00:29 06/03/24 00:40 16 MG Ondansetron HCl (zoFRAN 4MG INJ) 4 mg Q6H PRN IV NAUSEA/VOMITING 06/02/24 19:30 07/02/24 19:29 06/03/24 07:24 4 MG Phenylephrine HCl 10 mg/Sodium Chloride 250 ml @ 0 mls/hr PROTOCOL IV 06/02/24 19:30 06/03/24 00:42 DC 06/03/24 00:24 278 MLS/HR Phenylephrine HCl 100 mg/Sodium Chloride 250 ml @ 0 mls/hr PROTOCOL IV 06/03/24 00:30 07/03/24 00:29 06/03/24 07:30 26.1 MLS/HR Potassium Chloride 100 ml @ 100 mls/hr AD PRN IV POTASSIUM PROTOCOL 06/02/24 20:00 07/02/24 19:59 Potassium Chloride (K-Dur/Klor-Con 20meq) 20 meq AD PRN PO POTASSIUM PROTOCOL 06/02/24 20:00 07/02/24 19:59 Potassium Chloride (KCl 10% Elixir 20meq/15ml) 20 meq AD PRN PO POTASSIUM PROTOCOL 06/02/24 20:00 07/02/24 19:59 Sodium Chloride 1,000 ml @ 100 mls/hr Q10H IV 06/02/24 19:00 07/02/24 18:59 06/02/24 19:04 100 MLS/HR Sodium Chloride 1,000 ml @ 100 mls/hr Q10H IV 06/02/24 19:30 06/02/24 19:57 DC 06/02/24 19:39 100 MLS/HR Vancomycin HCl (Vancomycin 750mg) 750 mg Q12H IVPB 06/03/24 21:00 06/13/24 20:59 Vancomycin HCl (Vancomycin Protocol) 1 each AD IV 06/03/24 07:00 06/17/24 06:59 Vitamin B Complex (Vitamin B-12) 1,000 mcg DAILY PO 06/03/24 09:00 07/03/24 08:59 06/03/24 09:24 1,000 MCG DIAGNOSTICS / RADIOLOGY: [ ] ASSESSMENT: Acute respiratory failure without mechanical ventilation POA Septic shock requiring vasopressor POA Suspected community-acquired pneumonia vs pulmonary edema, POA Dehydration POA Failure to thrive POA Acute kidney injury POA Protein calorie malnutrition POA Chronic anemia POA Endometrial cancer status post chemotherapy and immunotherapy POA PLAN: Continue ICU Continue patient on full liquid diet advanced as tolerated Continue NS @ 100 ml / hr and re evaluate Continue pressors, wean as able Discontinue Rocephin and azithromycin Echo pending, will follow up Start Vancomycin Start cefepime Continue Famotidine 20 mg bid for GI prophylaxis Cardiology consulted, appreciate recommendations Disposition: Pending improvement in clinical status Greater than 35 minutes ICU times spent in care of patient RICH RUFF MD Jun 03, 2024 12:07
--- NOTE | 2024-06-03 12:26 | PN ---
[facility] PROGRESS NOTE Date Patient Seen: Jun 03, 2024 Time of Visit: 12:26 Supervising Physician: Dr. Clark Primary Care Physician: Attending: Dariusz hospitalist team Outpatient Specialists: Inpatient Consults: BIS, critical Care team PROBLEM LIST: Sepsis with septic shock, POA requiring two pressors Acute respiratory failure, POA Severe dehydration/ hypovolemia, POA Acute nausea, vomiting, diarrhea, POA Frailty/debility/general body weakness Failure to thrive, POA Acute kidney injury, POA, GFR 43 (GFR 108 on 05/09/2024) Protein calorie malnutrition/hypoalbuminemia Acute on chronic anemia leukocytosis Electrolyte derangement (hyponatremia, hypochloremia) Endometrial cancer status post chemo and immunotherapy, POA Leukocytosis Chronic problem list: diabetes, hypotension, anemia, pericarditis, neuropathy, constipation INTERVAL HISTORY: 06/03/2024: At the time of my evaluation, the patient was lying in bed. She continued complaining of loose stools. Watery consistency. The patient remains on nasal cannula 2 L and is tachycardic and tachypneic on the monitor. Laboratory data obtained showed a WBC of 11.2, H&H 9.9/31.1 and a platelet count of 159. Chemistry panel was notable for BUN 18, creatinine of 1.3 and a GFR 51, total calcium of 7.6, magnesium of 1.2, total bili of 1.5, AST 188, ALT 54 and alk-phos of 125. LDH of 275. CRP of 197.60. Chest x-ray today showed no acute airspace disease. The patient continues on antibiotic therapy currently with cefepime and vancomycin. No other complaint. REVIEW OF SYSTEMS: 12 point ROS reviewed with patient. Pertinent positives mentioned above. Otherwise negative. PHYSICAL EXAM: GENERAL: Alert, weak, awake oriented x 3 HEENT: EOMI, Sclera non icteric, moist mucosa NECK: Supple, no JVD, trachea midline LUNGS: Clear breath sounds bilaterally. No wheezes HEART: Regular rate and rhythm. Normal S1 and S2, without murmurs ABD: Abdomen soft, nontender. Bowel sounds present EXT: No clubbing cyanosis or edema NEURO: Alert and oriented X3, follows commands Vital Signs (last 8hr) Date Time Temp Pulse Resp B/P (MAP) Pulse Ox O2 Delivery O2 Flow Rate FiO2 06/03/24 10:30 108 16 116/62 (80) 96 06/03/24 10:15 106 16 96 06/03/24 10:00 106 16 96 06/03/24 09:45 107 22 123/58 (79) 94 06/03/24 09:30 111 19 115/57 (76) 92 06/03/24 09:15 114 26 121/87 (98) 96 06/03/24 09:00 106 26 120/73 (89) 95 06/03/24 08:45 110 27 133/74 (93) 100 06/03/24 08:30 111 13 111/54 (73) 95 06/03/24 08:15 109 9 123/52 (75) 96 06/03/24 08:00 104 19 87/67 (74) 98 06/03/24 08:00 98.2 06/03/24 08:00 98 Nasal Cannula* 1 24 06/03/24 07:45 104 19 70/24 (39) 98 06/03/24 07:30 132/80 06/03/24 07:30 107 21 103/63 (76) 98 06/03/24 07:15 112 18 130/53 (78) 98 06/03/24 07:00 112 28 167/100 (122) 98 06/03/24 06:00 120 21 131/68 (89) 96 28 06/03/24 05:45 117 17 136/74 (94) 99 06/03/24 05:30 114 23 157/86 (109) 99 06/03/24 05:15 114 23 142/78 (99) 98 06/03/24 05:00 110 15 101/61 (74) 98 24 06/03/24 04:45 118 19 136/84 (101) 98 06/03/24 04:30 112 24 115/72 (86) 93 LABS: Hematology Labs: Test 06/03/24 03:46 Range/Units White Blood Count 11.2 H 4.8-10.8 K/uL Red Blood Count 3.37 L 4.00-5.50 MIL/uL Hemoglobin 9.9 L 12.0-16.0 g/dL Hematocrit 31.1 L 36-48 % Mean Corpuscular Volume 92.3 79-99 fL Mean Corpuscular Hemoglobin 29.4 27.0-33.0 pg Mean Corpuscular Hemoglobin Concent 31.8 L 32.0-36.0 g/dL Red Cell Distribution Width 15.7 H 11.0-15.5 % Platelet Count 159 130-400 K/uL Mean Platelet Volume 9.4 7.5-10.5 fL Immature Granulocyte % (Auto) 0.5 0-1 % Neutrophils (%) (Auto) 74.7 40.0-77.0 % Lymphocytes (%) (Auto) 16.9 L 21.0-51.0 % Monocytes (%) (Auto) 7.5 3.0-13.0 % Eosinophils (%) (Auto) 0.1 0.0-8.0 % Basophils (%) (Auto) 0.3 0.0-5.0 % Neutrophils # (Auto) 8.4 H 1.8-7.7 K/uL Lymphocytes # (Auto) 1.9 1.0-4.8 K/uL Monocytes # (Auto) 0.8 0.1-1.0 K/uL Eosinophils # (Auto) 0.01 0.00-0.70 K/uL Basophils # (Auto) 0.03 0.00-0.20 K/uL Absolute Immature Granulocyte (auto 0.06 0-1 K/uL Nucleated Red Blood Cells 0.0 0.0-0.19 % Chemistry Labs: Test 06/03/24 03:46 06/02/24 15:36 Range/Units Sodium Level 141 136-145 mmol/L Potassium Level 4.6 3.5-5.1 mmol/L Chloride Level 110 101-111 mmol/L Carbon Dioxide Level 24 21-32 mmol/L Blood Urea Nitrogen 18 7-18 mg/dL Creatinine 1.3 H 0.5-1.0 mg/dL Glomerular Filtration Rate Calc 51 >90 mL/min Random Glucose 74 70-105 mg/dL Total Calcium 7.6 L 8.5-10.1 mg/dL Magnesium Level 1.20 L 1.80-2.40 mg/dL Total Bilirubin 1.5 #H 0.2-1.0 mg/dL Aspartate Amino Transf (AST/SGOT) 188 H 10-37 U/L Alanine Aminotransferase (ALT/SGPT) 54 # 12-78 U/L Alkaline Phosphatase 125 # 50-136 U/L Lactate Dehydrogenase 275 H 81-234 U/L C-Reactive Protein, Quantitative 197.60 H 0.5-3.0 mg/L B-Type Natriuretic Peptide 82 0-100 pg/mL Total Protein 5.5 L 6.0-8.3 g/dL Albumin 2.3 L 3.5-5.0 g/dL Lactic Acid Level 1.9 0.8-2.5 mmol/L Total Creatine Kinase 90 21-232 U/L Troponin I High Sensitivity 11 4-50 ng/L Lipase 8 L 16-77 U/L Procalcitonin 5.90 H 0.05-0.5 ng/mL Human Chorionic Gonadotropin, Quant 3 0-5 mIU/mL DIAGNOSTICS / RADIOLOGY RESULTS: [ ] PLAN The patient was admitted to ICU under the catalyst team and BIS as critical care consult. Continuous cardiac monitoring, pulse oximetry monitoring, and fall precautions. V/S per ICU. Continue holly IV drip and norepinephrine IV drip to keep the map above 65 mmHg. Oxygen supplementation as needed to keep SpO2 equal to or greater than 92%. Insert Ribeiro for accurate I&O in this critical ill patient. X2 NS bolus after admission. (ED administered2 L of NS) Continue NS at 100 mL an hour. Rocephin2 g IV daily. Zithromax 500 mg IV daily. Obtain ABGs. Obtain stool for C diff, culture, WBC. Consult Nephrology for acute kidney injury, decreased urine output. Monitor electrolytes and treat accordingly. Monitor renal and liver function. Reconcile home meds once available. P.r.n. medications for: Pain management, nausea, and vomiting. DVT and GI prophylaxis: Pepcid and A.m. labs: CBC, BNP, Mag, phos, TSH, A1c. Further orders depending on hospitalization course. 06/03/2024: For now, we are going to continue current management for the p atient. Primary MD ordered a dose of loperamide, before this is administered, we will like to collect a stool sample for GI PCR. We will adjust antibiotic therapy to cefepime doxy and Flagyl. The patient will continue on pressor therapy with norepinephrine and phenylephrine. We will repeat surveillance labs in the morning. We will monitor the patient's progress and response to management. We will continue to provide general supportive care, GI and DVT prophylaxis. Further orders per attending MD and hospital course. NEURO: Minimize central acting medications as possible. Fall Precautions. Well lighted room through the day and minimize interruptions through the night to prevent acute delirium. PULMONARY: Supplemental 02 as needed Titrate Fio2 to keep Spo2 > or = 90% DuoNebs and CPT as needed IS hourly while awake for pulmonary hygiene Out of bed to chair as tolerated VAP Bundle CARDIOVASCULAR: Follow hemodynamics. Titrate vasopressor to keep MAP >65 or systolic blood pressure >95mmHg GI & NUTRITION: Continue nutritional support Aspirations precautions Prokinetic agents and laxatives as needed KIDNEYS & ELECTROLYTES: Strict monitoring of intake and output Daily weights Avoid nephrotoxic agents Monitor electrolytes and replace as needed Goal urine output of 30mL/hr or 0.5mL/kg/hr ENDOCRINE: Maintain blood glucose between 100-180 at all times. Insulin sliding scale for blood glucose management INFECTIOUS DISEASE: Trend temperature. Beckwith-culture if febrile. HEMATOLOGY & COAGULATION: Monitor H&H. Keep Hgb > 7 Transfuse 1 unit of PRBC for Hgb < 7 Transfuse 1 pack of platelets of platelets < 20, 000 Watch for any signs and symptoms of bleeding SKIN: Pressure ulcer prevention per facility protocol Rehab: PT/OT Code Status: Full Resuscitation Disposition: [Admit to ICU] Other: Total patient critical care time exceeds 45 minutes excluding all procedures. LESLIE CARROLL NP Jun 03, 2024 12:26
[2024-06-03] MEDS: LOPERAMIDE 1 MG/7.5 ML UDCUP PO PRN (12:38)
[2024-06-03] MEDS ORDERED: PHARMACY COMMUNICATION MISC SCH (13:00)
--- NOTE | 2024-06-03 13:51 | CONS ---
NEPHROLOGY CONSULTATION NOTE Date/Time Patient Seen: Jun 03, 2024 1255 Reason for Consultation: Renal failure, generalized weakness, sepsis HISTORY OF PRESENT ILLNESS: This is a 48-year-old female with past medical history of diabetes, hypotension, anemia, pericarditis, neuropathy, constipation, endometrial cancer status post chemotherapy and immunotherapy She was brought by EMS to the ED for complaints of generalized body weakness and loss of appetite for two days. Patient was having nausea and vomiting started today she has approximately 4 episodes of bilious vomitus she said. Reportedly patient was hypoxic ,tachycardic and hypotensive per EMS . Chest x-ray result revealed mild bilateral pulmonary infiltrates are seen may be related to mild pulmonary vascular congestion with possible superimposed pneumonitis. While in the ER patient received fluid resuscitation of LR 30 mL per kg over 3 hours, patient was given Rocephin 1 g and azithromycin IV , Zofran 4 mg IV and patient was started on Levophed drip. We will admit patient to ICU for further medical management. She was noted with elevated BUN/creatinine We will has been consulted for renal failure. Renal function remains elevated Electrolytes are stable. REVIEW OF SYSTEMS: GENERAL: Negative for any nausea, vomiting, fevers, chills, or weight loss. NEUROLOGIC: Negative for any blurry vision, blind spots, double vision, facial asymmetry, dysphagia, dysarthria, hemiparesis, hemisensory deficits, vertigo, ataxia. HEENT: Negative for any head trauma, neck trauma, neck stiffness, photophobia, phonophobia, sinusitis, rhinitis. CARDIAC: Negative for any chest pain, dyspnea on exertion, paroxysmal nocturnal dyspnea, peripheral edema. PULMONARY: Negative for any shortness of breath, wheezing, COPD, or TB exposure. GASTROINTESTINAL: Negative for any abdominal pain, nausea, vomiting, bright red blood per rectum, melena. GENITOURINARY: Negative for any dysuria, hematuria, incontinence. INTEGUMENTARY: Negative for any rashes, cuts, insect bites. RHEUMATOLOGIC: Negative for any joint pains, photosensitive rashes, history of vasculitis or kidney problems. HEMATOLOGIC: Negative for any abnormal bruising, frequent infections or bleeding. PAST MEDICAL HISTORY: Endometrial cancer status post chemotherapy August 25, 2023 for four months and immunotherapy received April 06 2024, pericarditis diabetes, hypotension, anemia, neuropathy, constipation. ] PAST SURGICAL HISTORY: Hysterectomy endometrial cancer removal 2023 and left Port-A-Cath placement PAST SOCIAL HISTORY: Denies use of alcohol, tobacco or illicit drugs FAMILY HISTORY: Noncontributory PHYSICAL EXAM: GENERAL: Alert and oriented x 3. No acute distress. Well-nourished. EYES: EOMI. Anicteric. HENT: Moist mucous membranes. No scleral icterus. No cervical lymphadenopathy. LUNGS: Clear to auscultation bilaterally. No accessory muscle use. CARDIOVASCULAR: Regular rate and rhythm. No murmur. No JVD. ABDOMEN: Soft, non-tender and non-distended. No palpable masses. EXTREMITIES: No edema. Non-tender.?SKIN: No rashes or lesions. Warm. NEUROLOGIC: No focal neurological deficits. CN II-XII grossly intact, but not individually tested. PSYCHIATRIC: Cooperative. Appropriate mood and affect. MEDICATIONS: [ ] Current Medications Medications (Trade) Dose Ordered Sig/Mina Route PRN Reason Start Time Stop Time Status Last Admin Dose Admin Acetaminophen (TYLenol 325MG TAB) 650 mg Q4H PRN PO MILD PAIN (1-3) 06/02/24 19:30 07/02/24 19:29 Acetaminophen (TYLenol 325MG TAB) 650 mg Q6H PRN PO TEMPERATURE GREATER THAN 101.5 06/02/24 19:30 07/02/24 19:29 Albumin Human 250 ml @ 100 mls/hr AD IV 06/03/24 01:00 06/08/24 00:59 06/03/24 01:15 100 MLS/HR Azithromycin 250 ml @ 250 mls/hr Q24H IV 06/02/24 19:30 06/02/24 19:57 DC Azithromycin 250 ml @ 250 mls/hr Q24H IVPB 06/02/24 18:00 06/03/24 06:48 DC 06/02/24 18:18 250 MLS/HR Cefepime HCl (MAXipime 2 gm vial) 2 gm Q24H IVPB 06/03/24 07:00 06/13/24 06:59 06/03/24 07:15 2 GM Ceftriaxone Sodium 1 gm/ Sodium Chloride 50 ml @ 100 mls/hr Q24H IV 06/02/24 19:30 06/02/24 19:36 DC Ceftriaxone Sodium (ROCEphine 1G INJ) 1 gm Q24H IVPB 06/02/24 20:00 06/03/24 00:08 DC Ceftriaxone Sodium (Rocephin 2gm Inj) 2 gm Q24H IVPB 06/03/24 17:30 06/03/24 06:50 DC Colchicine (COLCHicine 0.6mg TAB) 0.6 mg DAILY PO 06/03/24 09:00 07/03/24 08:59 06/03/24 09:22 0.6 MG Famotidine (Pepcid 20mg Vial) 20 mg DAILY IV 06/03/24 09:00 07/03/24 08:59 06/03/24 09:21 20 MG Gabapentin (NEURontin 100 mg CAP) 100 mg BID PO 06/03/24 09:00 07/03/24 08:59 06/03/24 09:22 100 MG Heparin Sodium (Porcine) (HEParin 5,000 UNIT VIAL) 5,000 unit Q12H SQ 06/03/24 00:30 07/03/24 00:29 06/03/24 12:40 5,000 UNIT Home Med (Home Medication) (Folic Acid 1 TAB) DAILY PO 06/03/24 09:00 07/03/24 08:59 Loperamide HCl (Immodium Liquid) 2 mg AD PRN PO AFTER EACH LOOSE STOOL 06/03/24 12:30 07/03/24 12:29 06/03/24 12:38 2 MG Magnesium Sulfate 50 ml @ 0 mls/hr PROTOCOL PRN IV OTHER [SEE ORDER COMMENTS] 06/02/24 20:00 07/02/24 19:59 06/03/24 06:55 25 MLS/HR Norepinephrine 250 ml @ 0 mls/hr PROTOCOL IV 06/02/24 16:00 06/03/24 00:19 DC 06/02/24 22:52 48 MLS/HR Norepinephrine Bitartrate (Norepineph 16 Mg/250ml NS Premix) 0.1 PROTOCOL IV 06/03/24 00:30 07/03/24 00:29 06/03/24 00:40 16 MG Ondansetron HCl (zoFRAN 4MG INJ) 4 mg Q6H PRN IV NAUSEA/VOMITING 06/02/24 19:30 07/02/24 19:29 06/03/24 13:12 4 MG Pharmacy Profile Note (Pharmacy Communication) 1 each ONCE MISC 06/03/24 13:00 06/03/24 13:02 DC Phenylephrine HCl 10 mg/Sodium Chloride 250 ml @ 0 mls/hr PROTOCOL IV 06/02/24 19:30 06/03/24 00:42 DC 06/03/24 00:24 278 MLS/HR Phenylephrine HCl 100 mg/Sodium Chloride 250 ml @ 0 mls/hr PROTOCOL IV 06/03/24 00:30 07/03/24 00:29 06/03/24 07:30 26.1 MLS/HR Potassium Chloride 100 ml @ 100 mls/hr AD PRN IV POTASSIUM PROTOCOL 06/02/24 20:00 07/02/24 19:59 Potassium Chloride (K-Dur/Klor-Con 20meq) 20 meq AD PRN PO POTASSIUM PROTOCOL 06/02/24 20:00 07/02/24 19:59 Potassium Chloride (KCl 10% Elixir 20meq/15ml) 20 meq AD PRN PO POTASSIUM PROTOCOL 06/02/24 20:00 07/02/24 19:59 Sodium Chloride 1,000 ml @ 100 mls/hr Q10H IV 06/02/24 19:00 07/02/24 18:59 06/02/24 19:04 100 MLS/HR Sodium Chloride 1,000 ml @ 100 mls/hr Q10H IV 06/02/24 19:30 06/02/24 19:57 DC 06/02/24 19:39 100 MLS/HR Vancomycin HCl (Vancomycin 750mg) 750 mg Q12H IVPB 06/03/24 21:00 06/13/24 20:59 Vancomycin HCl (Vancomycin Protocol) 1 each AD IV 06/03/24 07:00 06/17/24 06:59 Vitamin B Complex (Vitamin B-12) 1,000 mcg DAILY PO 06/03/24 09:00 07/03/24 08:59 06/03/24 09:24 1,000 MCG Vital Signs (last 8hr) Date Time Temp Pulse Resp B/P (MAP) Pulse Ox O2 Delivery O2 Flow Rate FiO2 06/03/24 13:15 105 22 129/89 (102) 95 06/03/24 13:00 104 25 144/78 (100) 95 06/03/24 12:45 107 28 124/76 (92) 95 06/03/24 12:30 109 33 148/82 (104) 95 06/03/24 12:15 109 27 112/82 (92) 96 06/03/24 12:00 93 Nasal Cannula* 2 28 06/03/24 12:00 109 35 133/78 (96) 93 28 06/03/24 12:00 98.8 06/03/24 10:30 108 16 116/62 (80) 96 06/03/24 10:15 106 16 96 06/03/24 10:00 106 16 96 06/03/24 09:45 107 22 123/58 (79) 94 06/03/24 09:30 111 19 115/57 (76) 92 06/03/24 09:15 114 26 121/87 (98) 96 06/03/24 09:00 106 26 120/73 (89) 95 06/03/24 08:45 110 27 133/74 (93) 100 06/03/24 08:30 111 13 111/54 (73) 95 06/03/24 08:15 109 9 123/52 (75) 96 06/03/24 08:00 104 19 87/67 (74) 98 06/03/24 08:00 98.2 06/03/24 08:00 98 Nasal Cannula* 1 24 06/03/24 07:45 104 19 70/24 (39) 98 06/03/24 07:30 132/80 06/03/24 07:30 107 21 103/63 (76) 98 06/03/24 07:15 112 18 130/53 (78) 98 06/03/24 07:00 112 28 167/100 (122) 98 06/03/24 06:00 120 21 131/68 (89) 96 28 06/03/24 05:45 117 17 136/74 (94) 99 DIAGNOSTICS / RADIOLOGY: REASON: SHORTNESS OF BREATH ORDERING PHYSICIAN: FLORES POSADA CLIENT SUCCESS SPECIALIST PROCEDURE: CXR1VW - CHEST 1VW CHEST 1VW HISTORY: Shortness of breath COMPARISON: 06/02/2024 FINDINGS: A frontal projection of the chest was obtained. There are bilateral pulmonary infiltrates suggestive of pulmonary vascular congestion with possible superimposed pneumonitis. The heart is borderline enlarged. Port-A-Cath is seen entering from the left. No evidence of aortic calcification is seen. IMPRESSION: 1. Bilateral pulmonary infiltrates are seen suggestive of pulmonary vascular congestion with possible superimposed pneumonitis. DICTATED BY: EMILY WETZEL MD DATE: 06/03/24 0822 REASON: SEPSIS ORDERING PHYSICIAN: MAGGIE COLLADO MD PROCEDURE: CXR1VW - CHEST 1VW CHEST 1VW HISTORY: Sepsis COMPARISON: None FINDINGS: A frontal projection of the chest was obtained. Mild bilateral pulmonary infiltrates are seen may be related to mild pulmonary vascular congestion with possible superimposed pneumonitis. The heart is borderline enlarged. Port-A-Cath is seen entering from the left. Degenerative changes are seen. No evidence of aortic calcification is seen. IMPRESSION: 1. Mild bilateral pulmonary infiltrates are seen may be related to mild pulmonary vascular congestion with possible superimposed pneumonitis. DICTATED BY: EMILY WETZEL MD DATE: 06/02/24 1610 LABORATORY: [ ] Hematology Labs: Test 06/03/24 03:46 Range/Units White Blood Count 11.2 H 4.8-10.8 K/uL Red Blood Count 3.37 L 4.00-5.50 MIL/uL Hemoglobin 9.9 L 12.0-16.0 g/dL Hematocrit 31.1 L 36-48 % Mean Corpuscular Volume 92.3 79-99 fL Mean Corpuscular Hemoglobin 29.4 27.0-33.0 pg Mean Corpuscular Hemoglobin Concent 31.8 L 32.0-36.0 g/dL Red Cell Distribution Width 15.7 H 11.0-15.5 % Platelet Count 159 130-400 K/uL Mean Platelet Volume 9.4 7.5-10.5 fL Immature Granulocyte % (Auto) 0.5 0-1 % Neutrophils (%) (Auto) 74.7 40.0-77.0 % Lymphocytes (%) (Auto) 16.9 L 21.0-51.0 % Monocytes (%) (Auto) 7.5 3.0-13.0 % Eosinophils (%) (Auto) 0.1 0.0-8.0 % Basophils (%) (Auto) 0.3 0.0-5.0 % Neutrophils # (Auto) 8.4 H 1.8-7.7 K/uL Lymphocytes # (Auto) 1.9 1.0-4.8 K/uL Monocytes # (Auto) 0.8 0.1-1.0 K/uL Eosinophils # (Auto) 0.01 0.00-0.70 K/uL Basophils # (Auto) 0.03 0.00-0.20 K/uL Absolute Immature Granulocyte (auto 0.06 0-1 K/uL Nucleated Red Blood Cells 0.0 0.0-0.19 % Chemistry Labs: Test 06/03/24 03:46 06/02/24 15:36 Range/Units Sodium Level 141 136-145 mmol/L Potassium Level 4.6 3.5-5.1 mmol/L Chloride Level 110 101-111 mmol/L Carbon Dioxide Level 24 21-32 mmol/L Blood Urea Nitrogen 18 7-18 mg/dL Creatinine 1.3 H 0.5-1.0 mg/dL Glomerular Filtration Rate Calc 51 >90 mL/min Random Glucose 74 70-105 mg/dL Total Calcium 7.6 L 8.5-10.1 mg/dL Magnesium Level 1.20 L 1.80-2.40 mg/dL Total Bilirubin 1.5 #H 0.2-1.0 mg/dL Aspartate Amino Transf (AST/SGOT) 188 H 10-37 U/L Alanine Aminotransferase (ALT/SGPT) 54 # 12-78 U/L Alkaline Phosphatase 125 # 50-136 U/L Lactate Dehydrogenase 275 H 81-234 U/L C-Reactive Protein, Quantitative 197.60 H 0.5-3.0 mg/L B-Type Natriuretic Peptide 82 0-100 pg/mL Total Protein 5.5 L 6.0-8.3 g/dL Albumin 2.3 L 3.5-5.0 g/dL Lactic Acid Level 1.9 0.8-2.5 mmol/L Total Creatine Kinase 90 21-232 U/L Troponin I High Sensitivity 11 4-50 ng/L Lipase 8 L 16-77 U/L Procalcitonin 5.90 H 0.05-0.5 ng/mL Human Chorionic Gonadotropin, Quant 3 0-5 mIU/mL ASSESSMENT: Acute kidney injury Sepsis with septic shock Acute respiratory failure Severe dehydration/ hypovolemia Acute nausea, vomiting, diarrhea Frailty/debility/general body weakness Failure to thrive Protein calorie malnutrition/hypoalbuminemia Acute on chronic anemia leukocytosis Electrolyte derangement (hyponatremia, hypochloremia) Endometrial cancer status post chemo and immunotherapy Leukocytosis Diabetes Hypotension Anemia History of pericarditis Neuropathy Constipation PLAN: Labs, diagnostic, radiologic exams reviewed and interpreted by myself and supervising physician. We have reviewed external records in detail Do not resume in the medicine potassium. Close monitoring vancomycin therapeutic levels of renal function. Obtain UA, urine electrolytes, urine creatinine, urine osmolality and complete abdominal ultrasound Require close monitoring of renal function and electrolytes Order CBC, CMP, uric acid, TSH and electrolytes in am Continue with antibiotics BiPAP as necessary, for respiratory distress IV pressors as needed Monitor blood pressure adjust medication doses as needed Avoid hypotensive episodes May use Dilaudid 0.5 mg IV every 6 hours as needed for severe pain Monitor blood sugars Strict intake, output, and daily weight should be monitored Please renally adjust medications Avoid nephrotoxic and nonsteroidal drugs Avoid contrast if possible Will continue to monitor renal function, anemia, electrolytes Treatment plan discussed with patient Questions were answered We have discussed with the other team physicians in detail about the care plan We will continue to monitor the patient closely Thank you for allowing us to participate in the care of this patient Total critical care time spent with patient, nursing staff, critical care team over 35 minutes ATTESTATION BY PHYSICIAN I have seen and examined the patient. I reviewed the documentation, medical decision making, and treatment plan as noted by the mid-level provider above. I agree with the findings and plan of care. ALCIDES NGUYEN MD, ELIZABETH FNP Jun 03, 2024 13:51 ALCIDES NGUYEN MD Jun 03, 2024 18:28
[2024-06-03 14:20] LABS: CREATININE,URINE RANDOM 26.76 mg/dL (30-135)
[2024-06-03] MEDS: metRONIDazole 500MG/100ML BAG IV SCH (14:27)
[2024-06-03] MEDS: DOXYCYCLINE 100MG+NS 250ML 250 ML IV SCH (14:27)
--- NOTE | 2024-06-03 17:04 | HMCSR ---
APPROVED REPORT EXAM: LIMITED Two-dimensional and M-mode echocardiogram. INDICATION ICD: pericardial effusion 2D Dimensions IVC diam1.9 cm Left Ventricle The left ventricle is normal in structure and function. The Ejection Fraction is >55%. Right Ventricle Right ventricle is normal size. The right ventricular systolic function is normal. Mitral Valve Mitral valve opens well. No mitral valve prolapse. Pericardium Small circumferential pericardial effusion, 0.9 cm in maximum dimension. No echo indications of peric ardial tamponade. Other Information Quality : Limited/Follow-upRhythm : NSR Conclusion Small circumferential pericardial effusion, 0.9 cm in maximum dimension. No echo indications of pericardial tamponade. Grossly normal LV and RV systolic function.
[2024-06-03] MEDS ORDERED: CEFTRIAXONE 2GM VIAL IVPB SCH (17:30)
--- NOTE | 2024-06-03 18:59 | NUR ---
HAND OFF GIVEN TO Linda SQUIRES RN
[2024-06-03] MEDS ORDERED: VANCOMYCIN 750MG VIAL IVPB SCH (21:00)
--- NOTE | 2024-06-03 22:30 | NUR ---
PT DID NOT TOLERATE BEING SUPINE, O2SATS DOWN TO 86%, PT AWAKENS AND BECOMES AGITATED, HEAD OF BED ADJUSTED TO 30 DEGREES. SEDATION IV ADJUSTED.
[2024-06-04] VITALS (82 sets, daily range): BP systolic 93–162; BP diastolic 37–106; PULSE 101–141; RESP 13–49; TEMP 97.6–98.6; O2SAT 97–98
[2024-06-04 04:28] LABS: HEMATOCRIT 26.7 % (36-48); MEAN CORPUSCULAR HEMOGLOBIN 29.3 pg (27.0-33.0); MEAN CORPUSCULAR HGB CONC 30.7 g/dL (32.0-36.0); MEAN CORPUSCULAR VOLUME 95.4 fL (79-99); PLATELET COUNT (AUTO) 88 K/uL (130-400); RED CELL DISTRIBUTION WIDTH 15.7 % (11.0-15.5); WHITE BLOOD COUNT (AUTO) 6.5 K/uL (4.8-10.8)
[2024-06-04 04:55] LABS: ALBUMIN 2.2 g/dL (3.5-5.0); BILIRUBIN,TOTAL 1.2 mg/dL (0.2-1.0); CREATININE 0.8 mg/dL (0.5-1.0); MAGNESIUM 1.7 mg/dL (1.80-2.40); PHOSPHORUS 3.2 mg/dL (2.5-4.9); POTASSIUM 3.2 mmol/L (3.5-5.1); TOTAL PROTEIN, SERUM 5.6 g/dL (6.0-8.3); URIC ACID 5.3 mg/dL (2.6-7.2)
[2024-06-04] MEDS: DEXTROSE 50%-WATER 50 ML DISP.SYRIN IV ONE ×3 (05:12→14:33)
[2024-06-04] MEDS: PoTASSium chl 10% ELIXIR 20MEQ 20 MEQ/15 ML UDCUP PO PRN (05:40)
[2024-06-04 06:02] LABS: BAND NEUTROPHILS % (MANUAL) 6 % (0-2); LYMPHOCYTES % (MANUAL) 11 % (22-44); MAN.DIFF COMMENT-IMPRESSION MANUAL DIFFERENTIAL; MONOCYTES % (MANUAL) 3 % (2-9); PLATELET MORPHOLOGY COMMENT DECREASED; REACTIVE LYMPHOCYTES 2 % (0-0); SEGMENTED NEUTROPHILS % 78 % (40-70); TOTAL CELLS COUNTED 100; WBC MORPHOLOGY REACTIVE LYMPHS 1+
--- NOTE | 2024-06-04 06:45 | NUR ---
PATIENT WITH SINUS TACHYCARDIA AND VOICES NO COMPLAINTS OF PAIN OR OTHER DISCOMFORT. RESPIRATIONS ARE EVEN, UNLABORED. NO ACUTE DISTRESS NOTED. NOTIFIED CARLY YEE AIR BAG CURER OF PATIENT STATUS. CONTINUE CURRENT PLAN OF CARE AT THIS TIME. WILL BE IN TO SEE PATIENT.
--- NOTE | 2024-06-04 10:02 | HMCIMG ---
US ABDOMINAL COMPLETE HISTORY: Nausea, vomiting and diarrhea COMPARISON: None TECHNIQUE: Multiple transverse and longitudinal ultrasound images of the abdomen were obtained. FINDINGS: Abdominal aorta and inferior vena cava are unremarkable. The visualized portion of the pancreas is within normal limits. There are bilateral pleural effusions. Liver measured 11 cm. Gallstones are seen in the gallbladder. Common duct measures 2.6 mm. No evidence of gallbladder wall thickening is seen. Both kidneys are seen. Right kidney measures 11 x 5 x 4 cm. Left kidney measures 11 x 5 x 5 cm. There is right renal cyst measuring 2 cm. No hydronephrosis is seen of the both kidneys. The spleen is grossly unremarkable. IMPRESSION: 1. No gallstone or ductal dilatation is seen. 2. No hydronephrosis is seen. Simple right renal cyst measuring 2 cm.
--- NOTE | 2024-06-04 10:12 | NUR ---
NOTIFIED DR INIGUEZ AND Casey YEE NP THAT PATIENT REPORTING SEVERE PAIN AND ANXIETY. REVIEWED PATIENT'S HOME MEDICATIONS TO FIND THAT TRAMADOL BEING TAKEN AT HOME FOR BACK PAIN (PER PATIENT REPORT AND MEDICATION RECONCILIATION SECTION). PATIENT IS CURRENTLY RECEIVING ACETAMINOPHEN AND STATES "IT DOES NOT DO ANYTHING FOR MY BACK." DR INIGUEZ ORDERED MORPHINE 2MG IV PUSH Q4 HOURS PRN FOR SEVERE PAIN, AND FOR PATIENT TO CONTINUE HER HOME MEDICATION, TRAMADOL, PER EMAR. ORDERS READ BACK AND ENTERED.
[2024-06-04] MEDS: morPHINE 2 MG SYG ONE (10:28)
[2024-06-04] MEDS ORDERED: morPHINE 2 MG SYG IVP PRN (10:30)
--- NOTE | 2024-06-04 10:57 | PN ---
[facility] PROGRESS NOTE Date Patient Seen: Jun 04, 2024 Time of Visit: 10:57 Supervising Physician: Dr. Clark Primary Care Physician: Attending: Dariusz hospitalist team Outpatient Specialists: Inpatient Consults: BIS, critical Care team PROBLEM LIST: Sepsis with septic shock, POA requiring two pressors Acute respiratory failure, POA Severe dehydration/ hypovolemia, POA Acute nausea, vomiting, diarrhea, POA Frailty/debility/general body weakness Failure to thrive, POA Acute kidney injury, POA, GFR 43 (GFR 108 on 05/09/2024) Protein calorie malnutrition/hypoalbuminemia Acute on chronic anemia leukocytosis Electrolyte derangement (hyponatremia, hypochloremia) Endometrial cancer status post chemo and immunotherapy, POA Leukocytosis Chronic problem list: diabetes, hypotension, anemia, pericarditis, neuropathy, constipation INTERVAL HISTORY: 06/03/2024: At the time of my evaluation, the patient was lying in bed. She continued complaining of loose stools. Watery consistency. The patient remains on nasal cannula 2 L and is tachycardic and tachypneic on the monitor. Laboratory data obtained showed a WBC of 11.2, H&H 9.9/31.1 and a platelet count of 159. Chemistry panel was notable for BUN 18, creatinine of 1.3 and a GFR 51, total calcium of 7.6, magnesium of 1.2, total bili of 1.5, AST 188, ALT 54 and alk-phos of 125. LDH of 275. CRP of 197.60. Chest x-ray today showed no acute airspace disease. The patient continues on antibiotic therapy currently with cefepime and vancomycin. No other complaint. 06/04/2024: At the time of my evaluation, the patient is lying bed. The staff nurse reports the patient is complaining of increased pain and is requesting pain management adjustment. On the monitor, the patient remains on nasal cannula 3 L and is persistently tachycardic. The patient remains on pressor therapy with Levophed and phenylephrine. She continues on antibiotic therapy with cefepime doxy and Flagyl. Laboratory data today was notable for stable H&H 8.0/25.8 and a platelet count decreased to 71 from 88. Also, overnight the patient had blood glucose changes with a drop to 21 mg/dL and this was corrected with dextrose. Liver parameters slightly improving. No other complaint. REVIEW OF SYSTEMS: 12 point ROS reviewed with patient. Pertinent positives mentioned above. Otherwise negative. PHYSICAL EXAM: GENERAL: Alert, weak, awake oriented x 3 HEENT: EOMI, Sclera non icteric, moist mucosa NECK: Supple, no JVD, trachea midline LUNGS: Clear breath sounds bilaterally. No wheezes HEART: Regular rate and rhythm. Normal S1 and S2, without murmurs ABD: Abdomen soft, nontender. Bowel sounds present EXT: No clubbing cyanosis or edema NEURO: Alert and oriented X3, follows commands Vital Signs (last 8hr) Date Time Temp Pulse Resp B/P (MAP) Pulse Ox O2 Delivery O2 Flow Rate FiO2 06/04/24 08:30 116 33 110/67 (81) 98 06/04/24 08:15 124 26 122/88 (99) 97 06/04/24 08:09 129 31 137/92 (107) 96 06/04/24 08:01 129 35 141/82 (101) 96 06/04/24 08:00 98.2 133 30 90 06/04/24 08:00 98 Nasal Cannula* 3 32 06/04/24 07:45 127 20 116/68 (84) 95 06/04/24 07:30 124 29 126/74 (91) 96 06/04/24 07:17 127 16 160/83 (108) 96 06/04/24 07:17 143/90 06/04/24 07:15 122 27 98 06/04/24 07:01 112 19 116/83 (94) 99 06/04/24 07:00 112 19 99 06/04/24 06:45 128 37 143/90 (107) 94 06/04/24 06:45 128 37 143/90 (107) 94 06/04/24 06:30 122 38 94 06/04/24 06:15 117 21 96 06/04/24 06:00 115 22 94 06/04/24 05:47 120 33 138/96 (110) 98 06/04/24 05:32 126 21 158/106 (123) 94 06/04/24 05:15 121 29 148/88 (108) 95 06/04/24 05:01 119 32 158/92 (114) 93 06/04/24 04:51 115 31 117/66 (83) 94 06/04/24 04:30 107 18 109/65 (80) 98 06/04/24 04:16 110 19 126/58 (80) 100 06/04/24 04:06 98.6 109 20 122/65 (84) 99 06/04/24 04:00 98 Nasal Cannula* 3 32 06/04/24 03:45 109 30 93/50 (64) 99 06/04/24 03:30 113 35 113/72 (86) 97 06/04/24 03:15 114 49 116/73 (87) 98 06/04/24 03:01 113 24 119/69 (86) 97 LABS: Hematology Labs: Test 06/04/24 04:13 06/03/24 03:46 Range/Units White Blood Count 6.5 4.8-10.8 K/uL Red Blood Count 2.80 L 4.00-5.50 MIL/uL Hemoglobin 8.2 L 12.0-16.0 g/dL Hematocrit 26.7 L 36-48 % Mean Corpuscular Volume 95.4 79-99 fL Mean Corpuscular Hemoglobin 29.3 27.0-33.0 pg Mean Corpuscular Hemoglobin Concent 30.7 L 32.0-36.0 g/dL Red Cell Distribution Width 15.7 H 11.0-15.5 % Platelet Count 88 #L 130-400 K/uL Mean Platelet Volume 9.7 7.5-10.5 fL Segmented Neutrophils % 78 H 40-70 % Band Neutrophils % 6 H 0-2 % Lymphocytes % (Manual) 11 L 22-44 % Monocytes % (Manual) 3 2-9 % Nucleated Red Blood Cells 0.0 0.0-0.19 % Differential Comment MANUAL DIFFERENTIAL Reactive Lymphocytes 2 H 0-0 % White Cell Morphology Comment REACTIVE LYMPHS 1+ Platelet Morphology Comment DECREASED Red Blood Cell Morphology See comments Immature Granulocyte % (Auto) 0.5 0-1 % Neutrophils (%) (Auto) 74.7 40.0-77.0 % Lymphocytes (%) (Auto) 16.9 L 21.0-51.0 % Monocytes (%) (Auto) 7.5 3.0-13.0 % Eosinophils (%) (Auto) 0.1 0.0-8.0 % Basophils (%) (Auto) 0.3 0.0-5.0 % Neutrophils # (Auto) 8.4 H 1.8-7.7 K/uL Lymphocytes # (Auto) 1.9 1.0-4.8 K/uL Monocytes # (Auto) 0.8 0.1-1.0 K/uL Eosinophils # (Auto) 0.01 0.00-0.70 K/uL Basophils # (Auto) 0.03 0.00-0.20 K/uL Absolute Immature Granulocyte (auto 0.06 0-1 K/uL Chemistry Labs: Test 06/04/24 05:14 06/04/24 04:13 06/03/24 03:46 06/02/24 15:36 Range/Units Whole Blood Glucose 122 #H 70-110 MG/DL Sodium Level 136 136-145 mmol/L Potassium Level 3.2 L 3.5-5.1 mmol/L Chloride Level 104 101-111 mmol/L Carbon Dioxide Level 16 L 21-32 mmol/L Blood Urea Nitrogen 11 7-18 mg/dL Creatinine 0.8 0.5-1.0 mg/dL Glomerular Filtration Rate Calc 91 >90 mL/min Random Glucose 36 *L 70-105 mg/dL Uric Acid 5.3 2.6-7.2 mg/dL Total Calcium 8.0 L 8.5-10.1 mg/dL Phosphorus Level 3.2 2.5-4.9 mg/dL Magnesium Level 1.70 L 1.80-2.40 mg/dL Total Bilirubin 1.2 H 0.2-1.0 mg/dL Aspartate Amino Transf (AST/SGOT) 316 H 10-37 U/L Alanine Aminotransferase (ALT/SGPT) 124 H 12-78 U/L Alkaline Phosphatase 121 50-136 U/L Total Protein 5.6 L 6.0-8.3 g/dL Albumin 2.2 L 3.5-5.0 g/dL Lactate Dehydrogenase 275 H 81-234 U/L C-Reactive Protein, Quantitative 197.60 H 0.5-3.0 mg/L B-Type Natriuretic Peptide 82 0-100 pg/mL Lactic Acid Level 1.9 0.8-2.5 mmol/L Total Creatine Kinase 90 21-232 U/L Troponin I High Sensitivity 11 4-50 ng/L Lipase 8 L 16-77 U/L Procalcitonin 5.90 H 0.05-0.5 ng/mL Human Chorionic Gonadotropin, Quant 3 0-5 mIU/mL DIAGNOSTICS / RADIOLOGY RESULTS: [ ] PLAN The patient was admitted to ICU under the catalyst team and BIS as critical care consult. Continuous cardiac monitoring, pulse oximetry monitoring, and fall precautions. V/S per ICU. Continue holly IV drip and norepinephrine IV drip to keep the map above 65 mmHg. Oxygen supplementation as needed to keep SpO2 equal to or greater than 92%. Insert Ribeiro for accurate I&O in this critical ill patient. X2 NS bolus after admission. (ED administered2 L of NS) Continue NS at 100 mL an hour. Rocephin2 g IV daily. Zithromax 500 mg IV daily. Obtain ABGs. Obtain stool for C diff, culture, WBC. Consult Nephrology for acute kidney injury, decreased urine output. Monitor electrolytes and treat accordingly. Monitor renal and liver function. Reconcile home meds once available. P.r.n. medications for: Pain management, nausea, and vomiting. DVT and GI prophylaxis: Pepcid and A.m. labs: CBC, BNP, Mag, phos, TSH, A1c. Further orders depending on hospitalization course. 06/03/2024: For now, we are going to continue current management for the patient. Primary MD ordered a dose of loperamide, before this is administered, we will like to collect a stool sample for GI PCR. We will adjust antibiotic therapy to cefepime doxy and Flagyl. The patient will continue on pressor therapy with norepinephrine and phenylephrine. We will repeat surveillance labs in the morning. We will monitor the patient's progress and response to management. We will continue to provide general supportive care, GI and DVT prophylaxis. Further orders per attending MD and hospital course. 06/04/2024: For now, we are going to continue current management for the patient. We will continue with antibiotic therapy cefepime doxy and Flagyl. The patient will continue on pressor therapy with norepinephrine and phenylephrine and we will begin to wean off as tolerated. We will continue to correct electrolyte deficit per the protocol. We will monitor the blood glucose trend and treat accordingly. We will repeat surveillance labs in the morning. We will monitor the patient's progress and response to management. We will continue to provide general supportive care, GI and DVT prophylaxis. Further orders per attending MD and hospital course. NEURO: Minimize central acting medications as possible. Fall Precautions. Well lighted room through the day and minimize interruptions through the night to prevent acute delirium. PULMONARY: Supplemental 02 as needed Titrate Fio2 to keep Spo2 > or = 90% DuoNebs and CPT as needed IS hourly while awake for pulmonary hygiene Out of bed to chair as tolerated VAP Bundle CARDIOVASCULAR: Follow hemodynamics. Titrate vasopressor to keep MAP >65 or systolic blood pressure >95mmHg GI & NUTRITION: Continue nutritional support Aspirations precautions Prokinetic agents and laxatives as needed KIDNEYS & ELECTROLYTES: Strict monitoring of intake and output Daily weights Avoid nephrotoxic agents Monitor electrolytes and replace as needed Goal urine output of 30mL/hr or 0.5mL/kg/hr ENDOCRINE: Maintain blood glucose between 100-180 at all times. Insulin sliding scale for blood glucose management INFECTIOUS DISEASE: Trend temperature. Beckwith-culture if febrile. HEMATOLOGY & COAGULATION: Monitor H&H. Keep Hgb > 7 Transfuse 1 unit of PRBC for Hgb < 7 Transfuse 1 pack of platelets of platelets < 20, 000 Watch for any signs and symptoms of bleeding SKIN: Pressure ulcer prevention per facility protocol Rehab: PT/OT Code Status: Full Resuscitation Disposition: [Admit to ICU] Other: Total patient critical care time exceeds 45 minutes excluding all procedures. LESLIE CARROLL NP Jun 04, 2024 10:57
[2024-06-04] MEDS ORDERED: hydroMORPHone 0.5 MG SYG (0.5MG/0.5ML) IVP PRN (11:00)
--- NOTE | 2024-06-04 11:30 | NUR ---
Casey YEE CHILD AND ADOLESCENT PSYCHOLOGIST ROUNDED AND SAW PATIENT. PATIENT CONTINUES WITH SINUS TACHYCARDIA, SLIGHTLY LABORED BREATHING, BUT REPORTING PAIN HAS DECREASED SINCE RECEIVING MORPHINE. PER Casey YEE, CHILD AND ADOLESCENT PSYCHOLOGIST CONTINUE WITH CURRENT PLAN OF CARE.
[2024-06-04] MEDS: traMADol HCL 50 MG TABLET PO PRN (12:27)
--- NOTE | 2024-06-04 13:04 | PN ---
NEPHROLOGY PROGRESS NOTE Date/Time Patient Seen: Jun 04, 2024 SUBJECTIVE: This is a 49-year-old female with past medical history of diabetes, hypotension, anemia, pericarditis, neuropathy, constipation, endometrial cancer status post chemotherapy and immunotherapy She was brought by EMS to the ED for complaints of generalized body weakness and loss of appetite for two days. Patient was having nausea and vomiting started today she has approximately 4 episodes of bilious vomitus she said. Reportedly patient was hypoxic ,tachycardic and hypotensive per EMS . Chest x-ray result revealed mild bilateral pulmonary infiltrates are seen may be related to mild pulmonary vascular congestion with possible superimposed pneumonitis. While in the ER patient received fluid resuscitation of LR 30 mL per kg over 3 hours, patient was given Rocephin 1 g and azithromycin IV , Zofran 4 mg IV and patient was started on Levophed drip. We will admit patient to ICU for further medical management. She was noted with elevated BUN/creatinine We will has been consulted for renal failure. Renal function and electrolytes are stable. Abdominal ultrasound showed no hydronephrosis. Simple right renal cyst measuring 2 cm. She was seen in the ICU, in no acute distress Family at the bedside Prognosis remains guarded REVIEW OF SYSTEMS: GENERAL: Negative for any nausea, vomiting, fevers, chills, or weight loss. NEUROLOGIC: Negative for any blurry vision, blind spots, double vision, facial asymmetry, dysphagia, dysarthria, hemiparesis, hemisensory deficits, vertigo, ataxia. HEENT: Negative for any head trauma, neck trauma, neck stiffness, photophobia, phonophobia, sinusitis, rhinitis. CARDIAC: Negative for any chest pain, dyspnea on exertion, paroxysmal nocturnal dyspnea, peripheral edema. PULMONARY: Negative for any shortness of breath, wheezing, COPD, or TB exposure. GASTROINTESTINAL: Negative for any abdominal pain, nausea, vomiting, bright red blood per rectum, melena. GENITOURINARY: Negative for any dysuria, hematuria, incontinence. INTEGUMENTARY: Negative for any rashes, cuts, insect bites. RHEUMATOLOGIC: Negative for any joint pains, photosensitive rashes, history of vasculitis or kidney problems. HEMATOLOGIC: Negative for any abnormal bruising, frequent infections or bleeding. PHYSICAL EXAM: GENERAL: Alert and oriented x 3. No acute distress. Well-nourished. EYES: EOMI. Anicteric. HENT: Moist mucous membranes. No scleral icterus. No cervical lymphadenopathy. LUNGS: Clear to auscultation bilaterally. No accessory muscle use. CARDIOVASCULAR: Regular rate and rhythm. No murmur. No JVD. ABDOMEN: Soft, non-tender and non-distended. No palpable masses. EXTREMITIES: No edema. Non-tender.?SKIN: No rashes or lesions. Warm. NEUROLOGIC: No focal neurological deficits. CN II-XII grossly intact, but not individually tested. PSYCHIATRIC: Cooperative. Appropriate mood and affect. LABORATORY: [ ] Hematology Labs: Test 06/04/24 04:13 06/03/24 03:46 Range/Units White Blood Count 6.5 4.8-10.8 K/uL Red Blood Count 2.80 L 4.00-5.50 MIL/uL Hemoglobin 8.2 L 12.0-16.0 g/dL Hematocrit 26.7 L 36-48 % Mean Corpuscular Volume 95.4 79-99 fL Mean Corpuscular Hemoglobin 29.3 27.0-33.0 pg Mean Corpuscular Hemoglobin Concent 30.7 L 32.0-36.0 g/dL Red Cell Distribution Width 15.7 H 11.0-15.5 % Platelet Count 88 #L 130-400 K/uL Mean Platelet Volume 9.7 7.5-10.5 fL Segmented Neutrophils % 78 H 40-70 % Band Neutrophils % 6 H 0-2 % Lymphocytes % (Manual) 11 L 22-44 % Monocytes % (Manual) 3 2-9 % Nucleated Red Blood Cells 0.0 0.0-0.19 % Differential Comment MANUAL DIFFERENTIAL Reactive Lymphocytes 2 H 0-0 % White Cell Morphology Comment REACTIVE LYMPHS 1+ Platelet Morphology Comment DECREASED Red Blood Cell Morphology See comments Immature Granulocyte % (Auto) 0.5 0-1 % Neutrophils (%) (Auto) 74.7 40.0-77.0 % Lymphocytes (%) (Auto) 16.9 L 21.0-51.0 % Monocytes (%) (Auto) 7.5 3.0-13.0 % Eosinophils (%) (Auto) 0.1 0.0-8.0 % Basophils (%) (Auto) 0.3 0.0-5.0 % Neutrophils # (Auto) 8.4 H 1.8-7.7 K/uL Lymphocytes # (Auto) 1.9 1.0-4.8 K/uL Monocytes # (Auto) 0.8 0.1-1.0 K/uL Eosinophils # (Auto) 0.01 0.00-0.70 K/uL Basophils # (Auto) 0.03 0.00-0.20 K/uL Absolute Immature Granulocyte (auto 0.06 0-1 K/uL Chemistry Labs: Test 06/04/24 05:14 06/04/24 04:13 06/03/24 03:46 06/02/24 15:36 Range/Units Whole Blood Glucose 122 #H 70-110 MG/DL Sodium Level 136 136-145 mmol/L Potassium Level 3.2 L 3.5-5.1 mmol/L Chloride Level 104 101-111 mmol/L Carbon Dioxide Level 16 L 21-32 mmol/L Blood Urea Nitrogen 11 7-18 mg/dL Creatinine 0.8 0.5-1.0 mg/dL Glomerular Filtration Rate Calc 91 >90 mL/min Random Glucose 36 *L 70-105 mg/dL Uric Acid 5.3 2.6-7.2 mg/dL Total Calcium 8.0 L 8.5-10.1 mg/dL Phosphorus Level 3.2 2.5-4.9 mg/dL Magnesium Level 1.70 L 1.80-2.40 mg/dL Total Bilirubin 1.2 H 0.2-1.0 mg/dL Aspartate Amino Transf (AST/SGOT) 316 H 10-37 U/L Alanine Aminotransferase (ALT/SGPT) 124 H 12-78 U/L Alkaline Phosphatase 121 50-136 U/L Total Protein 5.6 L 6.0-8.3 g/dL Albumin 2.2 L 3.5-5.0 g/dL Lactate Dehydrogenase 275 H 81-234 U/L C-Reactive Protein, Quantitative 197.60 H 0.5-3.0 mg/L B-Type Natriuretic Peptide 82 0-100 pg/mL Lactic Acid Level 1.9 0.8-2.5 mmol/L Total Creatine Kinase 90 21-232 U/L Troponin I High Sensitivity 11 4-50 ng/L Lipase 8 L 16-77 U/L Procalcitonin 5.90 H 0.05-0.5 ng/mL Human Chorionic Gonadotropin, Quant 3 0-5 mIU/mL DIAGNOSTICS / RADIOLOGY: REASON: SOB ORDERING PHYSICIAN: MARLENE INIGUEZ MD PROCEDURE: CXR1VW - CHEST 1VW CHEST 1VW HISTORY: Shortness of breath COMPARISON: 06/03/2024 FINDINGS: A frontal projection of the chest was obtained. Bilateral pulmonary infiltrates and pleural effusions are seen with left more than right. The heart is borderline enlarged. Port-A-Cath is seen entering from the left. Degenerative changes are seen. No evidence of aortic calcification is seen. IMPRESSION: 1. Bilateral pulmonary infiltrates and pleural effusions with left more than right. DICTATED BY: EMILY WETZEL MD DATE: 06/04/24 1403 REASON: N/V/D ORDERING PHYSICIAN: ALCIDSE NGUYEN MD PROCEDURE: ABDOMEN - US ABDOMINAL COMPLETE US ABDOMINAL COMPLETE HISTORY: Nausea, vomiting and diarrhea COMPARISON: None TECHNIQUE: Multiple transverse and longitudinal ultrasound images of the abdomen were obtained. FINDINGS: Abdominal aorta and inferior vena cava are unremarkable. The visualized portion of the pancreas is within normal limits. There are bilateral pleural effusions. Liver measured 11 cm. Gallstones are seen in the gallbladder. Common duct measures 2.6 mm. No evidence of gallbladder wall thickening is seen. Both kidneys are seen. Right kidney measures 11 x 5 x 4 cm. Left kidney measures 11 x 5 x 5 cm. There is right renal cyst measuring 2 cm. No hydronephrosis is seen of the both kidneys. The spleen is grossly unremarkable. IMPRESSION: 1. No gallstone or ductal dilatation is seen. 2. No hydronephrosis is seen. Simple right renal cyst measuring 2 cm. DICTATED BY: EMILY WETZEL MD DATE: 06/04/24 0958 REASON: Assess for pericardial effusion ORDERING PHYSICIAN: RICH RUFF MD PROCEDURE: ECHO FU LD - ECHO 2-D F/U-LTD APPROVED REPORT EXAM: LIMITED Two-dimensional and M-mode echocardiogram. INDICATION ICD: pericardial effusion 2D Dimensions IVC diam 1.9 cm Left Ventricle The left ventricle is normal in structure and function. The Ejection Fraction is >55%. Right Ventricle Right ventricle is normal size. The right ventricular systolic function is normal. Mitral Valve Mitral valve opens well. No mitral valve prolapse. Pericardium Small circumferential pericardial effusion, 0.9 cm in maximum dimension. No echo indications of pericardial tamponade. Other Information Quality : Limited/Follow-up Rhythm : NSR Conclusion Small circumferential pericardial effusion, 0.9 cm in maximum dimension. No echo indications of pericardial tamponade. Grossly normal LV and RV systolic function. DICTATED BY: JUSTYNA SUAREZ DO DATE: 06/03/24937 REASON: SHORTNESS OF BREATH ORDERING PHYSICIAN: FLORES POSADA PROCEDURE: CXR1VW - CHEST 1VW CHEST 1VW HISTORY: Shortness of breath COMPARISON: 06/02/2024 FINDINGS: A frontal projection of the chest was obtained. There are bilateral pulmonary infiltrates suggestive of pulmonary vascular congestion with possible superimposed pneumonitis. The heart is borderline enlarged. Port-A-Cath is seen entering from the left. No evidence of aortic calcification is seen. IMPRESSION: 1. Bilateral pulmonary infiltrates are seen suggestive of pulmonary vascular congestion with possible superimposed pneumonitis. DICTATED BY: EMILY WETZEL MD DATE: 06/03/24 0822 REASON: SEPSIS ORDERING PHYSICIAN: MAGGIE COLLADO MD PROCEDURE: CXR1VW - CHEST 1VW CHEST 1VW HISTORY: Sepsis COMPARISON: None FINDINGS: A frontal projection of the chest was obtained. Mild bilateral pulmonary infiltrates are seen may be related to mild pulmonary vascular congestion with possible superimposed pneumonitis. The heart is borderline enlarged. Port-A-Cath is seen entering from the left. Degenerative changes are seen. No evidence of aortic calcification is seen. IMPRESSION: 1. Mild bilateral pulmonary infiltrates are seen may be related to mild pulmonary vascular congestion with possible superimposed pneumonitis. DICTATED BY: EMILY WETZEL MD DATE: 06/02/24 1610 ASSESSMENT: Acute kidney injury Sepsis with septic shock Acute respiratory failure Severe dehydration/ hypovolemia Acute nausea, vomiting, diarrhea Frailty/debility/general body weakness Failure to thrive Protein calorie malnutrition/hypoalbuminemia Acute on chronic anemia leukocytosis Electrolyte derangement (hyponatremia, hypochloremia) Endometrial cancer status post chemo and immunotherapy Leukocytosis Diabetes Hypotension Anemia History of pericarditis Neuropathy Constipation PLAN: Labs, diagnostic, radiologic exams reviewed and interpreted by myself and supervising physician. We have reviewed external records in detail May give one dose of Lasix, strict intake/output Require close monitoring of renal function and electrolytes Order CBC, CMP,and electrolytes in am Continue with antibiotics BiPAP as necessary, for respiratory distress IV pressors as needed Monitor blood pressure adjust medication doses as needed Avoid hypotensive episodes May use Dilaudid 0.5 mg IV every 6 hours as needed for severe pain Monitor blood sugars Strict intake, output, and daily weight should be monitored Please renally adjust medications Avoid nephrotoxic and nonsteroidal drugs Avoid contrast if possible Will continue to monitor renal function, anemia, electrolytes Treatment plan discussed with patient Questions were answered We have discussed with the other team physicians in detail about the care plan We will continue to monitor the patient closely Total critical care time spent with patient, nursing staff, critical care team over 35 minutes ATTESTATION BY PHYSICIAN I have seen and examined the patient. I reviewed the documentation, medical decision making, and treatment plan as noted by the mid-level provider above. I agree with the findings and plan of care. ALCIDES NGUYEN MD, [facility] Jun 04, 2024 13:04
--- NOTE | 2024-06-04 13:23 | PN ---
[facility] PROGRESS NOTE Date of Service: Jun 04, 2024 Time of Service: 13:17 SUBJECTIVE: 06/03 patient seen at bedside, no acute events overnight. She is on a low dose of pressors, we will wean as able. WBC improved from 12.4 down to 11.2, hemoglobin improved from 9.7 up to 9.9, creatinine improved from 1.5 down to 1.3, CRP elevated at 197.6, remainder of her labs are relatively unremarkable. 06/04 patient is seen and examined bedside, case discussed with the RN, the patient with generalized body pain, she stated that she takes tramadol at home, requesting some pain medication. During my visit she still mildly tachycardic with a heart rate ranging between 120-130, remains on Shon-Synephrine for BP support. She is getting broad-spectrum IV antibiotics, on 4 L via nasal cannula. CBC with a hemoglobin 8.2, hematocrit 26.7, platelet count of 88. CMP with sodium 136, potassium 3.2, bicarbonate of 16, magnesium 1.7. Earlier this morning blood glucose 21. We will do stat CBC, we will replace electrolytes IV per protocol, follow a stat ABG as well. REVIEW OF SYSTEMS 12 point review of systems negative unless noted in HPI PHYSICAL EXAM GENERAL APPEARANCE: Patient appears generally weak and pale looking The patient is awake, alert, and oriented, in no acute cardiopulmonary distress NEUROLOGICAL: Cranial nerves II-XII grossly intact. Motor is 4/4 in bilateral upper and lower extremities proximal to distal. No sensory deficits. HEENT: Face is symmetric. Pupils are equal and reactive. Extraocular movements are intact. NECK: Supple. No JVD. No thyromegaly. No submental, submandibular, pre- /postauricular, occipital or supraclavicular lymphadenopathy. CHEST: Normal chest expansion. No Telemetry. LUNGS: Absence of any rales, rhonchi or any wheezing. CARDIOVASCULAR: Tachycardic Regular. S1 and S2 normal. No appreciable rubs, murmurs or gallops. ABDOMEN: Soft, nontender, and nondistended. There is no rebound, voluntary guarding, or rigidity. : Deferred. No Ribeiro. EXTREMITIES: Non-edematous and not cyanotic. No clubbing. Good capillary refill. SKIN: No skin breakdown. Vital Signs (last 8hr) Date Time Temp Pulse Resp B/P (MAP) Pulse Ox O2 Delivery O2 Flow Rate FiO2 06/04/24 10:31 125 26 92 06/04/24 10:31 125 26 92 06/04/24 10:26 118 18 115/69 98 06/04/24 10:26 118 18 115/69 (84) 98 06/04/24 10:16 127 28 95 06/04/24 10:16 127 28 95 06/04/24 10:01 137 24 88 06/04/24 10:01 137 24 88 06/04/24 09:46 123 18 99 06/04/24 09:46 123 18 99 06/04/24 09:45 124 17 137/55 99 06/04/24 09:45 124 17 137/55 (82) 99 06/04/24 09:31 141 17 157/77 91 06/04/24 09:31 141 17 157/77 (103) 91 06/04/24 09:16 135 42 129/73 96 06/04/24 09:16 135 42 129/73 (91) 96 06/04/24 09:01 129 30 95 06/04/24 09:01 129 30 95 06/04/24 09:00 129 22 138/95 97 06/04/24 09:00 129 22 138/95 (109) 97 06/04/24 08:46 125 20 139/71 (93) 95 06/04/24 08:46 125 20 139/71 95 06/04/24 08:31 117 30 98 06/04/24 08:31 117 30 98 06/04/24 08:30 116 33 110/67 (81) 98 06/04/24 08:15 124 26 122/88 (99) 97 06/04/24 08:09 129 31 137/92 (107) 96 06/04/24 08:01 129 35 141/82 (101) 96 06/04/24 08:00 98.2 133 30 90 06/04/24 08:00 98 Nasal Cannula* 3 32 06/04/24 07:45 127 20 116/68 (84) 95 06/04/24 07:30 124 29 126/74 (91) 96 06/04/24 07:17 127 16 160/83 (108) 96 06/04/24 07:17 143/90 06/04/24 07:15 122 27 98 06/04/24 07:01 112 19 116/83 (94) 99 06/04/24 07:00 112 19 99 06/04/24 06:45 128 37 143/90 (107) 94 06/04/24 06:45 128 37 143/90 (107) 94 06/04/24 06:30 122 38 94 06/04/24 06:15 117 21 96 06/04/24 06:00 115 22 94 06/04/24 05:47 120 33 138/96 (110) 98 06/04/24 05:32 126 21 158/106 (123) 94 LABS: Laboratory: Test 06/04/24 05:14 06/04/24 04:13 06/03/24 14:00 06/03/24 05:50 Range/Units Whole Blood Glucose 122 #H 70-110 MG/DL White Blood Count 6.5 4.8-10.8 K/uL Red Blood Count 2.80 L 4.00-5.50 MIL/uL Hemoglobin 8.2 L 12.0-16.0 g/dL Hematocrit 26.7 L 36-48 % Mean Corpuscular Volume 95.4 79-99 fL Mean Corpuscular Hemoglobin 29.3 27.0-33.0 pg Mean Corpuscular Hemoglobin Concent 30.7 L 32.0-36.0 g/dL Red Cell Distribution Width 15.7 H 11.0-15.5 % Platelet Count 88 #L 130-400 K/uL Mean Platelet Volume 9.7 7.5-10.5 fL Segmented Neutrophils % 78 H 40-70 % Band Neutrophils % 6 H 0-2 % Lymphocytes % (Manual) 11 L 22-44 % Monocytes % (Manual) 3 2-9 % Nucleated Red Blood Cells 0.0 0.0-0.19 % Differential Comment MANUAL DIFFERENTIAL Reactive Lymphocytes 2 H 0-0 % White Cell Morphology Comment REACTIVE LYMPHS 1+ Platelet Morphology Comment DECREASED Red Blood Cell Morphology See comments Sodium Level 136 136-145 mmol/L Potassium Level 3.2 L 3.5-5.1 mmol/L Chloride Level 104 101-111 mmol/L Carbon Dioxide Level 16 L 21-32 mmol/L Blood Urea Nitrogen 11 7-18 mg/dL Creatinine 0.8 0.5-1.0 mg/dL Glomerular Filtration Rate Calc 91 >90 mL/min Random Glucose 36 *L 70-105 mg/dL Uric Acid 5.3 2.6-7.2 mg/dL Total Calcium 8.0 L 8.5-10.1 mg/dL Phosphorus Level 3.2 2.5-4.9 mg/dL Magnesium Level 1.70 L 1.80-2.40 mg/dL Total Bilirubin 1.2 H 0.2-1.0 mg/dL Aspartate Amino Transf (AST/SGOT) 316 H 10-37 U/L Alanine Aminotransferase (ALT/SGPT) 124 H 12-78 U/L Alkaline Phosphatase 121 50-136 U/L Total Protein 5.6 L 6.0-8.3 g/dL Albumin 2.2 L 3.5-5.0 g/dL Urine Random Creatinine 26.76 L 30-135 mg/dL Urine Random Sodium 145 40-220 mmol/l Urine Random Potassium 29 25-125 mmol/L Urine Random Chloride 141 110-250 mmol/L C. difficile Antigen and Toxins A,B See comments NEG Test 06/03/24 03:46 06/03/24 00:30 06/03/24 00:26 06/02/24 21:19 Range/Units Immature Granulocyte % (Auto) 0.5 0-1 % Neutrophils (%) (Auto) 74.7 40.0-77.0 % Lymphocytes (%) (Auto) 16.9 L 21.0-51.0 % Monocytes (%) (Auto) 7.5 3.0-13.0 % Eosinophils (%) (Auto) 0.1 0.0-8.0 % Basophils (%) (Auto) 0.3 0.0-5.0 % Neutrophils # (Auto) 8.4 H 1.8-7.7 K/uL Lymphocytes # (Auto) 1.9 1.0-4.8 K/uL Monocytes # (Auto) 0.8 0.1-1.0 K/uL Eosinophils # (Auto) 0.01 0.00-0.70 K/uL Basophils # (Auto) 0.03 0.00-0.20 K/uL Absolute Immature Granulocyte (auto 0.06 0-1 K/uL Lactate Dehydrogenase 275 H 81-234 U/L C-Reactive Protein, Quantitative 197.60 H 0.5-3.0 mg/L B-Type Natriuretic Peptide 82 0-100 pg/mL Stool Lactoferrin (JOSEP) POSITIVE H NEGATIVE Blood Gas Specimen Type Venous Arterial Blood Oxygen Saturation 69.9 L 94.0-98.0 % Venous Blood pH 7.226 L 7.320-7.430 Venous Blood pCO2 at Patient Temp 46 38-54 Venous Blood pO2 at Patient Temp 42.6 23.0-48.0 mmHg Venous Blood HCO3 18.7 L 22.0-29.0 Venous Blood Base Excess -8.6 L -2.0-3.0 Venous Blood Total Hemoglobin 11.0 L 12.0-16.0 Sodium (Blood Gas) 136 136-145 MMOL/L Bedside Potassium (Blood Gas) 4.3 3.4-4.5 MMOL/L Bedside Chloride (Blood Gas) 110 H 98-107 MMOL/L Bedside Glucose (Blood Gas) 85 65-95 MG/DL Bedside Ionized Calcium (Blood Gas) 1.09 L 1.15-1.33 MMOL/L Bedside Lactic Acid (Blood Gas) 2.95 H 0.36-0.75 MMOL/L Blood Gas Temperature 37.0 35.5-37.0 CELSIUS Blood Gas Flow-by 3.00 0.00-15.00 L/min Blood Gas Vent Mode NC ROOM AIR FiO2 32.0 % Blood Gas Specimen Comment PRADEEP RN ,AL Urine Color YELLOW YELLOW Urine Appearance TURBID CLEAR Urine pH 5.5 5.0-8.0 Urine Specific Lindsey 1.020 1.001-1.031 Urine Protein 100 H NEGATIVE mg/dL Urine Glucose (UA) NEGATIVE NEGATIVE mg/dL Urine Ketones NEGATIVE NEGATIVE mg/dL Urine Occult Blood +- (TRACE) H NEGATIVE Urine Nitrate NEGATIVE NEGATIVE Urine Bilirubin 0.5 H NEGATIVE mg/dL Urine Urobilinogen 0.2 0.2-1.0 mg/dL Urine Leukocyte Esterase 250 H NEGATIVE Brittaney/uL Urine RBC 11-25 H 0-1 /HPF Urine WBC 26-50 H 0-1 /HPF Urine WBC Clumps (Auto) FEW 0-1 /HPF Urine Squamous Epithelial Cells FEW 0-2 /HPF Urine Non-Squamous Epithelial Cells 2 0-2 /HPF Urine Other Crystals (Auto) 4 None Seen /HPF Urine Bacteria FEW None Seen /HPF Urine Hyaline Casts 2-5 H 0-1 /LPF /LPF Urine Other Casts 4 None Seen /LPF Urine Yeast FEW None Seen /HPF Urine HCG, Qualitative NEGATIVE NEGATIVE Urine Opiates Screen NEGATIVE NEGATIVE Urine Barbiturates Screen NEGATIVE NEGATIVE Urine Phencyclidine Screen NEGATIVE NEGATIVE Urine Amphetamines Screen NEGATIVE NEGATIVE Urine Benzodiazepines Screen NEGATIVE NEGATIVE Urine Cocaine Screen NEGATIVE NEGATIVE Urine Marijuana (THC) Screen NEGATIVE NEGATIVE Test 06/02/24 17:14 06/02/24 16:48 06/02/24 15:36 Range/Units Group A Streptococcus Rapid negative NEGATIVE Influenza Type A Antigen Negative For Type A NEGATIVE Influenza Type B Antigen Negative For Type B NEGATIVE SARS-CoV-2, RNA, NAAT NEGATIVE SARS CoV-2 NEGATIVE Lactic Acid Level 1.9 0.8-2.5 mmol/L Total Creatine Kinase 90 21-232 U/L Troponin I High Sensitivity 11 4-50 ng/L Lipase 8 L 16-77 U/L Procalcitonin 5.90 H 0.05-0.5 ng/mL Human Chorionic Gonadotropin, Quant 3 0-5 mIU/mL Current Medications Medications (Trade) Dose Ordered Sig/Mina Route PRN Reason Start Time Stop Time Status Last Admin Dose Admin Acetaminophen (TYLenol 325MG TAB) 650 mg Q4H PRN PO MILD PAIN (1-3) 06/02/24 19:30 07/02/24 19:29 Acetaminophen (TYLenol 325MG TAB) 650 mg Q6H PRN PO TEMPERATURE GREATER THAN 101.5 06/02/24 19:30 07/02/24 19:29 Albumin Human 250 ml @ 100 mls/hr AD IV 06/03/24 01:00 06/08/24 00:59 06/03/24 01:15 100 MLS/HR Azithromycin 250 ml @ 250 mls/hr Q24H IV 06/02/24 19:30 06/02/24 19:57 DC Azithromycin 250 ml @ 250 mls/hr Q24H IVPB 06/02/24 18:00 06/03/24 06:48 DC 06/02/24 18:18 250 MLS/HR Cefepime HCl (MAXipime 2 gm vial) 2 gm Q24H IVPB 06/03/24 07:00 06/13/24 06:59 06/04/24 06:33 2 GM Ceftriaxone Sodium 1 gm/ Sodium Chloride 50 ml @ 100 mls/hr Q24H IV 06/02/24 19:30 06/02/24 19:36 DC Ceftriaxone Sodium (ROCEphine 1G INJ) 1 gm Q24H IVPB 06/02/24 20:00 06/03/24 00:08 DC Ceftriaxone Sodium (Rocephin 2gm Inj) 2 gm Q24H IVPB 06/03/24 17:30 06/03/24 06:50 DC Colchicine (COLCHicine 0.6mg TAB) 0.6 mg DAILY PO 06/03/24 09:00 07/03/24 08:59 06/04/24 08:47 0.6 MG Doxycycline Hyclate 250 ml @ 125 mls/hr Q12H IV 06/03/24 14:30 06/13/24 14:29 06/04/24 02:29 125 MLS/HR Famotidine (Pepcid 20mg Vial) 20 mg DAILY IV 06/03/24 09:00 07/03/24 08:59 06/04/24 08:47 20 MG Gabapentin (NEURontin 100 mg CAP) 100 mg BID PO 06/03/24 09:00 07/03/24 08:59 06/04/24 08:47 100 MG Heparin Sodium (Porcine) (HEParin 5,000 UNIT VIAL) 5,000 unit Q12H SQ 06/03/24 00:30 07/03/24 00:29 06/04/24 00:53 5,000 UNIT Home Med (Home Medication) (Folic Acid 1 TAB) DAILY PO 06/03/24 09:00 07/03/24 08:59 Hydromorphone HCl (DiLAUDid 0.5MG INJ) 0.5 mg Q6H PRN IVP SEVERE PAIN (7-10) 06/04/24 11:00 06/04/24 11:01 DC Loperamide HCl (Immodium Liquid) 2 mg AD PRN PO AFTER EACH LOOSE STOOL 06/03/24 12:30 07/03/24 12:29 06/03/24 14:27 2 MG Magnesium Sulfate 50 ml @ 0 mls/hr PROTOCOL PRN IV OTHER [SEE ORDER COMMENTS] 06/02/24 20:00 07/02/24 19:59 06/04/24 05:38 25 MLS/HR Metronidazole/ Sodium Chloride (flaGYL) 500 mg Q8H IV 06/03/24 14:30 06/13/24 14:29 06/04/24 05:38 500 MG Morphine Sulfate (morPHINE 2MG SYG) 2 mg Q4H PRN IVP SEVERE PAIN (7-10) 06/04/24 10:30 06/04/24 11:00 DC Norepinephrine 250 ml @ 0 mls/hr PROTOCOL IV 06/02/24 16:00 06/03/24 00:19 DC 06/02/24 22:52 48 MLS/HR Norepinephrine Bitartrate (Norepineph 16 Mg/250ml NS Premix) 0.1 PROTOCOL IV 06/03/24 00:30 07/03/24 00:29 06/03/24 00:40 16 MG Ondansetron HCl (zoFRAN 4MG INJ) 4 mg Q6H PRN IV NAUSEA/VOMITING 06/02/24 19:30 07/02/24 19:29 06/04/24 10:27 4 MG Pharmacy Profile Note (Pharmacy Communication) 1 each ONCE MISC 06/03/24 13:00 06/03/24 13:02 DC Phenylephrine HCl 10 mg/Sodium Chloride 250 ml @ 0 mls/hr PROTOCOL IV 06/02/24 19:30 06/03/24 00:42 DC 06/03/24 00:24 278 MLS/HR Phenylephrine HCl 100 mg/Sodium Chloride 250 ml @ 0 mls/hr PROTOCOL IV 06/03/24 00:30 07/03/24 00:29 06/04/24 07:17 15.66 MLS/HR Potassium Chloride 100 ml @ 100 mls/hr AD PRN IV POTASSIUM PROTOCOL 06/02/24 20:00 07/02/24 19:59 Potassium Chloride (K-Dur/Klor-Con 20meq) 20 meq AD PRN PO POTASSIUM PROTOCOL 06/02/24 20:00 07/02/24 19:59 Potassium Chloride (KCl 10% Elixir 20meq/15ml) 20 meq AD PRN PO POTASSIUM PROTOCOL 06/02/24 20:00 07/02/24 19:59 06/04/24 05:40 20 MEQ Sodium Chloride 1,000 ml @ 100 mls/hr Q10H IV 06/02/24 19:00 07/02/24 18:59 06/03/24 23:33 100 MLS/HR Sodium Chloride 1,000 ml @ 100 mls/hr Q10H IV 06/02/24 19:30 06/02/24 19:57 DC 3/22/25 19:39 100 MLS/HR Tramadol HCl (UltRAM) 50 mg Q6H6 PRN PO PAIN LEVEL 4 TO 6 06/04/24 10:30 06/09/24 10:29 06/04/24 12:27 50 MG Vancomycin HCl (Vancomycin 750mg) 750 mg Q12H IVPB 06/03/24 21:00 06/03/24 14:06 DC Vancomycin HCl (Vancomycin Protocol) 1 each AD IV 06/03/24 07:00 06/03/24 14:06 DC Vitamin B Complex (Vitamin B-12) 1,000 mcg DAILY PO 06/03/24 09:00 06/04/24 10:51 DC 06/03/24 09:24 1,000 MCG Vitamin B Complex (Vitamin B-12) 1,000 mcg DAILY PO 06/04/24 14:00 07/04/24 13:59 DIAGNOSTICS / RADIOLOGY: [ ] ASSESSMENT: Acute respiratory failure without mechanical ventilation POA Septic shock requiring vasopressor POA Suspected community-acquired pneumonia vs pulmonary edema, POA Dehydration POA Failure to thrive POA Acute kidney injury POA Protein calorie malnutrition POA Chronic anemia POA Endometrial cancer status post chemotherapy and immunotherapy POA PLAN: Continue ICU Continue patient on full liquid diet advanced as tolerated Continue NS @ 125 ml / hr and re evaluate Continue pressors, wean as able Stat CBC transfuse as needed Stat ABG Continue broad-spectrum IV antibiotics Echocardiogram shows a small circumferential pericardial effusion, no indications for pericardial tamponade Continue Famotidine 20 mg bid for GI prophylaxis GI and DVT prophylaxis Prognosis is guarded Disposition: Pending improvement in clinical status Greater than 35 minutes ICU times spent in care of patient MARLENE INIGUEZ MD Jun 04, 2024 13:23
--- NOTE | 2024-06-04 13:40 | NUR ---
CARLY YEE SILVER CHASER PRESENT AT BEDSIDE. PATIENT INCREASINGLY CONGESTED AT THIS TIME AND HAS DEVELOPED WHEEZING AND ORTHOPNEA. ORDERS RECEIVED. i ALSO NOTIIED Meggan YEE NP AND DR DUMONT OF ALL LABS/DIAGNOSTIC EXAMS. FUROSEMIDE 40MG IV ORDERED TO BE GIVEN X 1 DOSE ONLY
[2024-06-04 13:41] LABS: HEMATOCRIT 25.8 % (36-48); MEAN CORPUSCULAR HEMOGLOBIN 29.4 pg (27.0-33.0); MEAN CORPUSCULAR VOLUME 94.9 fL (79-99); RED BLOOD CELL COUNT(AUTO) 2.72 MIL/uL (4.00-5.50); RED CELL DISTRIBUTION WIDTH 15.9 % (11.0-15.5); WHITE BLOOD COUNT (AUTO) 4.7 K/uL (4.8-10.8)
[2024-06-04 13:51] LABS: CREATININE 0.8 mg/dL (0.5-1.0); POTASSIUM 3.4 mmol/L (3.5-5.1)
[2024-06-04] MEDS: CYANOCOBALAMIN (VITAMIN B-12) 1,000 MCG TABLET PO SCH (14:00)
[2024-06-04 14:01] LABS: ALBUMIN 2.3 g/dL (3.5-5.0); MAGNESIUM 1.9 mg/dL (1.80-2.40); TOTAL PROTEIN, SERUM 5.8 g/dL (6.0-8.3)
[2024-06-04 14:16] LABS: ABG BASE EXCESS -14.2 mmol/L (-2.0-3.0); ABG HCO3 12.6 mmol/L (21.0-28.0); ABG OXYGEN SATURATION 93.9 % (94.0-98.0); ABG PCO2 33 mmHg (32-45); ABG PH 7.205 (7.350-7.450); CARBON MONOXIDE 0.3 % (0.5-1.5); DEVICE COMMENT RR LAURA RN; HHb 6.1; PO2, ARTERIAL BG 81.8 mmHg (83.0-108.0); VENT MODE, BG NC (ROOM AIR)
[2024-06-04] MEDS: furoSEMIDE 40MG VIAL IV STA (14:25)
[2024-06-04] MEDS: PoTASSium chloRIDE 20MEQ ER 20 MEQ ERTAB PO PRN (14:33)
--- NOTE | 2024-06-04 14:35 | HMCIMG ---
CHEST 1VW HISTORY: Shortness of breath COMPARISON: 06/03/2024 FINDINGS: A frontal projection of the chest was obtained. Bilateral pulmonary infiltrates and pleural effusions are seen with left more than right. The heart is borderline enlarged. Port-A-Cath is seen entering from the left. Degenerative changes are seen. No evidence of aortic calcification is seen. IMPRESSION: 1. Bilateral pulmonary infiltrates and pleural effusions with left more than right.
[2024-06-04] MEDS: PoTASSium chloRIDE 20MEQ/100ML 100 ML IV PRN (14:43)
--- NOTE | 2024-06-04 16:34 | NUR ---
Nutrition consult per PCM eval Reviewed labs, notes, and medications. Hx of hysterectomy August, s/p endometrial CA, hx of chemotherapy and immunotherapy, loss of appetite for 2 days prior to admin, on 4L [place], on CLD, Iv abx, sedated, K 3.4 (L), BG 58 (L), elevated AST and ALT per chart review. Wt via bed scale, green liquid loose BM 06/03/24, no edema, well nourished, no wounds noted, 1203 ml balance 06/04/24 per nursing. Pt at risk of PCM. Pt with mild muscle loss per NFPE assessment. Advance diet when medically feasible Recommendations: -Provide CLD + ensure CLEAR TID while Pt on CLD -Once diet advanced provide regular diet + ensure HP BID w/ am and dinner -Monitor PO intake -Encourage PO intake as able -If poor PO intake continues consider appetite stimulant -Monitor BM -If no BM >3 days consider stool softener -Consider probiotics QD per diarrhea -Monitor electrolytes -Replenish electrolytes per protocol -Monitor wts -Reweigh as able -Order Vit D, vit b-12 labs to rule out deficiencies -Provide MVI QD + b-complex -Texture per LINEN WORKER recs -Recommend Pt to follow up with PCP -Monitor goals of care RD to follow + available for consult per protocol Addendum: 06/04/24 at [address] Amended: Links added.
[2024-06-04] MEDS: SODIUM BICARB 50MEQ 50ML VIAL IV SCH (16:53)
--- NOTE | 2024-06-04 17:15 | NUR ---
Casey YEE SHOCHET PRESENT TO SEE PATIENT. AWARE OF PATIENT'S SINUS TACHYCARDIA RATE 120'S-130'S AND CURRENT VITAL SIGNS. CONTINUE CURRENT PLAN OF CARE AT THIS TIME.
[2024-06-04] MEDS: metoPROLOL tartRATE 1 MG/ML 5ML VIAL IV SCH (18:25)
[2024-06-04] MEDS: metoPROLOL tartRATE 1 MG/ML 5ML VIAL IV ONE (18:26)
[2024-06-04 19:16] LABS: ABG OXYGEN SATURATION 96.4 % (94.0-98.0); ABG PCO2 36 mmHg (32-45); ABG PH 7.408 (7.350-7.450); PO2, ARTERIAL BG 83.9 mmHg (83.0-108.0); VENT MODE, BG NC (ROOM AIR)
[2024-06-04] MEDS: acetaMINOPHEN 325 MG TAB PO PRN (20:49)
[2024-06-05] VITALS (33 sets, daily range): BP systolic 99–156; BP diastolic 44–73; PULSE 95–118; RESP 11–30; TEMP 97.3–98.9; O2SAT 92–100
[2024-06-05] MEDS: DEXTROSE 50%-WATER 50 ML DISP.SYRIN IV ONE ×2 (01:53)
[2024-06-05 04:10] LABS: BASOPHILS # (AUTO) 0.02 K/uL (0.00-0.20); BASOPHILS % (AUTO) 0.5 % (0.0-5.0); EOSINOPHILS # (AUTO) 0.11 K/uL (0.00-0.70); EOSINOPHILS % (AUTO) 2.6 % (0.0-8.0); HEMATOCRIT 23.8 % (36-48); IMMATURE GRANULOCYTE ABSOLUTE 0.02 K/uL (0-1); LYMPHOCYTES # (AUTO) 0.6 K/uL (1.0-4.8); LYMPHOCYTES % (AUTO) 14.2 % (21.0-51.0); MEAN CORPUSCULAR HEMOGLOBIN 29.3 pg (27.0-33.0); MEAN CORPUSCULAR HGB CONC 31.9 g/dL (32.0-36.0); MEAN CORPUSCULAR VOLUME 91.9 fL (79-99); MONOCYTES # (AUTO) 0.2 K/uL (0.1-1.0); MONOCYTES % (AUTO) 5.7 % (3.0-13.0); NEUTROPHILS # (AUTO) 3.3 K/uL (1.8-7.7); NEUTROPHILS % (AUTO) 76.5 % (40.0-77.0); PLATELET COUNT (AUTO) 81 K/uL (130-400); RED BLOOD CELL COUNT(AUTO) 2.59 MIL/uL (4.00-5.50); RED CELL DISTRIBUTION WIDTH 15.7 % (11.0-15.5); WHITE BLOOD COUNT (AUTO) 4.2 K/uL (4.8-10.8)
[2024-06-05 04:26] LABS: ALBUMIN 2.2 g/dL (3.5-5.0); BILIRUBIN,TOTAL 0.9 mg/dL (0.2-1.0); CREATININE 0.9 mg/dL (0.5-1.0); MAGNESIUM 1.5 mg/dL (1.80-2.40); TOTAL PROTEIN, SERUM 5.7 g/dL (6.0-8.3)
[2024-06-05 04:38] LABS: POTASSIUM 2.7 mmol/L (3.5-5.1)
--- NOTE | 2024-06-05 10:45 | PN ---
[facility] PROGRESS NOTE Date Patient Seen: Jun 05, 2024 Time of Visit: 10:45 Supervising Physician: Roberto Carlos Clark MD Primary Care Physician: Attending: Dariusz hospitalist team Outpatient Specialists: Inpatient Consults: BIS, critical Care team PROBLEM LIST: Sepsis with septic shock, POA requiring two pressors, resolved 2/2 Ecoli Acute complicated cystitis, POA Acute respiratory failure, POA Severe dehydration/ hypovolemia, POA Acute nausea, vomiting, diarrhea, POA Frailty/debility/general body weakness Failure to thrive, POA Acute kidney injury, POA, GFR 43 (GFR 108 on 05/09/2024) Protein calorie malnutrition/hypoalbuminemia Acute on chronic anemia leukocytosis Electrolyte derangement (hyponatremia, hypochloremia) Endometrial cancer status post chemo and immunotherapy, POA Leukocytosis Chronic problem list: diabetes, hypotension, anemia, pericarditis, neuropathy, constipation INTERVAL HISTORY: Pt is sleeping but easily arousable. Hemodynamically stable she is off pressors today. Continues on antibiotic regimen cefepim, doxycycline, and Flagyl. She was hemodynamically stable with a blood pressure 137/73 heart rate of 107 respiratory rate of 14 saturating 98% on room air and afebrile. urine output 5.4 L in the last 24 hours with a balance of-3.8 L. she diuresing well. WBCs 4.2, H&H is trending down 7.6/22.8 platelet count of 81 K. chemistries morning with sodium of 140 potassium of 2.7 corrected on repeat was 3.4 BUN six total calcium of 8.4 magnesium of 1.5 covered per Stl Lactoferrin Callie Positive and Stl norovirus detected on GI PCR. Culture + for Ecoli in the urine. Pansensitiv e. Pending chest XR in am. Stable for downgrade we will continue to follow. REVIEW OF SYSTEMS: 12 point ROS reviewed with patient. Pertinent positives mentioned above. Otherwise negative. PHYSICAL EXAM: GENERAL: Alert, weak, awake oriented x 3 HEENT: EOMI, Sclera non icteric, moist mucosa NECK: Supple, no JVD, trachea midline LUNGS: coarse Ronchi breath sounds bilaterally. No wheezes HEART: Regular rate and rhythm. Normal S1 and S2, without murmurs ABD: Abdomen soft, nontender. Bowel sounds present EXT: No clubbing cyanosis or edema NEURO: Alert and oriented X3, follows commands Vital Signs (last 8hr) Date Time Temp Pulse Resp B/P (MAP) Pulse Ox O2 Delivery O2 Flow Rate FiO2 06/05/24 06:15 99 12 118/57 (77) 100 06/05/24 06:04 109 24 113/44 (67) 97 06/05/24 05:15 104 15 119/66 (83) 100 06/05/24 04:45 101 13 113/57 (75) 100 06/05/24 04:15 102 13 121/71 (88) 100 06/05/24 04:00 98 Nasal Cannula* 4 36 06/05/24 03:45 102 12 124/68 (86) 99 06/05/24 03:15 100 12 122/68 (86) 100 LABS: Hematology Labs: Test 06/05/24 03:51 06/04/24 04:13 Range/Units White Blood Count 4.2 L 4.8-10.8 K/uL Red Blood Count 2.59 L 4.00-5.50 MIL/uL Hemoglobin 7.6 L 12.0-16.0 g/dL Hematocrit 23.8 L 36-48 % Mean Corpuscular Volume 91.9 79-99 fL Mean Corpuscular Hemoglobin 29.3 27.0-33.0 pg Mean Corpuscular Hemoglobin Concent 31.9 L 32.0-36.0 g/dL Red Cell Distribution Width 15.7 H 11.0-15.5 % Platelet Count 81 L 130-400 K/uL Mean Platelet Volume 9.1 7.5-10.5 fL Immature Granulocyte % (Auto) 0.5 0-1 % Neutrophils (%) (Auto) 76.5 40.0-77.0 % Lymphocytes (%) (Auto) 14.2 L 21.0-51.0 % Monocytes (%) (Auto) 5.7 3.0-13.0 % Eosinophils (%) (Auto) 2.6 0.0-8.0 % Basophils (%) (Auto) 0.5 0.0-5.0 % Neutrophils # (Auto) 3.3 1.8-7.7 K/uL Lymphocytes # (Auto) 0.6 L 1.0-4.8 K/uL Monocytes # (Auto) 0.2 0.1-1.0 K/uL Eosinophils # (Auto) 0.11 0.00-0.70 K/uL Basophils # (Auto) 0.02 0.00-0.20 K/uL Absolute Immature Granulocyte (auto 0.02 0-1 K/uL Nucleated Red Blood Cells 0.0 0.0-0.19 % Segmented Neutrophils % 78 H 40-70 % Band Neutrophils % 6 H 0-2 % Lymphocytes % (Manual) 11 L 22-44 % Monocytes % (Manual) 3 2-9 % Differential Comment MANUAL DIFFERENTIAL Reactive Lymphocytes 2 H 0-0 % White Cell Morphology Comment REACTIVE LYMPHS 1+ Platelet Morphology Comment DECREASED Red Blood Cell Morphology See comments Chemistry Labs: Test 06/05/24 03:51 06/05/24 01:09 06/04/24 13:37 06/04/24 04:13 Range/Units Sodium Level 140 136-145 mmol/L Potassium Level 2.7 *L 3.5-5.1 mmol/L Chloride Level 103 101-111 mmol/L Carbon Dioxide Level 29 21-32 mmol/L Blood Urea Nitrogen 6 L 7-18 mg/dL Creatinine 0.9 0.5-1.0 mg/dL Glomerular Filtration Rate Calc 79 >90 mL/min Random Glucose 86 70-105 mg/dL Total Calcium 8.4 L 8.5-10.1 mg/dL Magnesium Level 1.50 L 1.80-2.40 mg/dL Total Bilirubin 0.9 0.2-1.0 mg/dL Aspartate Amino Transf (AST/SGOT) 225 H 10-37 U/L Alanine Aminotransferase (ALT/SGPT) 119 H 12-78 U/L Alkaline Phosphatase 117 50-136 U/L Total Protein 5.7 L 6.0-8.3 g/dL Albumin 2.2 L 3.5-5.0 g/dL Whole Blood Glucose 65 L 70-110 MG/DL Vitamin B12 Level 2434 H 193-986 pg/mL Uric Acid 5.3 2.6-7.2 mg/dL Phosphorus Level 3.2 2.5-4.9 mg/dL DIAGNOSTICS / RADIOLOGY RESULTS: [ ] PLAN may downgrade from ICU off pressors off pressors Oxygen supplementation as needed to keep SpO2 equal to or greater than 92%. continue IV abx with cefepime flagy and doxy for now. Follow neprhology recommendations Monitor electrolytes and treat accordingly. Monitor renal and liver function. Reconcile home meds once available. P.r.n. medications for: Pain management, nausea, and vomiting. DVT and GI prophylaxis: Pepcid and A.m. labs: CBC, BNP, Mag, phos, TSH, A1c. NEURO: Minimize central acting medications as possible. Fall Precautions. Well lighted room through the day and minimize interruptions through the night to prevent acute delirium. PULMONARY: Supplemental 02 as needed Titrate Fio2 to keep Spo2 > or = 90% DuoNebs and CPT as needed IS hourly while awake for pulmonary hygiene Out of bed to chair as tolerated VAP Bundle CARDIOVASCULAR: Follow hemodynamics. Titrate vasopressor to keep MAP >65 or systolic blood pressure >95mmHg GI & NUTRITION: Continue nutritional support Aspirations precautions Prokinetic agents and laxatives as needed KIDNEYS & ELECTROLYTES: Strict monitoring of intake and output Daily weights Avoid nephrotoxic agents Monitor electrolytes and replace as needed Goal urine output of 30mL/hr or 0.5mL/kg/hr ENDOCRINE: Maintain blood glucose between 100-180 at all times. Insulin sliding scale for blood glucose management INFECTIOUS DISEASE: Trend temperature. Beckwith-culture if febrile. HEMATOLOGY & COAGULATION: Monitor H&H. Keep Hgb > 7 Transfuse 1 unit of PRBC for Hgb < 7 Transfuse 1 pack of platelets of platelets < 20, 000 Watch for any signs and symptoms of bleeding SKIN: Pressure ulcer prevention per facility protocol Rehab: PT/OT Code Status: Full Resuscitation Disposition:down grade from ICU Other: Total patient critical care time exceeds 45 minutes excluding all procedures. ATTESTATION BY PHYSICIAN I have evaluated the patient chart, medical records, and spoke with appropriate staff. I reviewed the documentation, medical decision making, and treatment plan as noted by the mid-level provider above. I agree with the findings and plan of care. Roberto Carlos Clark MD, NELLY J ARNP Jun 05, 2024 10:45
--- NOTE | 2024-06-05 11:33 | PN ---
[facility] PROGRESS NOTE Date of Service: Jun 05, 2024 Time of Service: 11:29 SUBJECTIVE: 06/03 patient seen at bedside, no acute events overnight. She is on a low dose of pressors, we will wean as able. WBC improved from 12.4 down to 11.2, hemoglobin improved from 9.7 up to 9.9, creatinine improved from 1.5 down to 1.3, CRP elevated at 197.6, remainder of her labs are relatively unremarkable. 06/04 patient is seen and examined bedside, case discussed with the RN, the patient with generalized body pain, she stated that she takes tramadol at home, requesting some pain medication. During my visit she still mildly tachycardic with a heart rate ranging between 120-130, remains on Shon-Synephrine for BP support. She is getting broad-spectrum IV antibiotics, on 4 L via nasal cannula. CBC with a hemoglobin 8.2, hematocrit 26.7, platelet count of 88. CMP with sodium 136, potassium 3.2, bicarbonate of 16, magnesium 1.7. Earlier this morning blood glucose 21. We will do stat CBC, we will replace electrolytes IV per protocol, follow a stat ABG as well. 06/05 patient is seen and examined at bedside, case discussed with the RN. During my visit the patient remains in bed, she looks more comfortable, less in distress compared to yesterday, remains on supplemental oxygen via nasal cannula 4 L, saturating 98%. Chest x-ray done yesterday showed bilateral pulmonary infiltrates and pleural effusions with left more than right, a dose of furosemide 40 mg IV x1 was given. So far urine output has been over 4 L in the last 24 hours. Patient denied chest pain, she feels less short of breath. Currently she is off Shon-Synephrine. BP 118/57. Hemoglobin 7.6, hematocrit 23.8. Repeat ABG yesterday pH 7.4, bicarb 22. REVIEW OF SYSTEMS 12 point review of systems negative unless noted in HPI PHYSICAL EXAM GENERAL APPEARANCE: Patient appears generally weak and pale looking The patient is awake, alert, and oriented, in no acute cardiopulmonary distress NEUROLOGICAL: Cranial nerves II-XII grossly intact. Motor is 4/4 in bilateral upper and lower extremities proximal to distal. No sensory deficits. HEENT: Face is symmetric. Pupils are equal and reactive. Extraocular movements are intact. NECK: Supple. No JVD. No thyromegaly. No submental, submandibular, pre- /postauricular, occipital or supraclavicular lymphadenopathy. CHEST: Normal chest expansion. No Telemetry. LUNGS: Absence of any rales, rhonchi or any wheezing. CARDIOVASCULAR: Tachycardic Regular. S1 and S2 normal. No appreciable rubs, murmurs or gallops. ABDOMEN: Soft, nontender, and nondistended. There is no rebound, voluntary guarding, or rigidity. : Deferred. No Ribeiro. EXTREMITIES: Non-edematous and not cyanotic. No clubbing. Good capillary refill. SKIN: No skin breakdown. Vital Signs (last 8hr) Date Time Temp Pulse Resp B/P (MAP) Pulse Ox O2 Delivery O2 Flow Rate FiO2 06/05/24 06:15 99 12 118/57 (77) 100 06/05/24 06:04 109 24 113/44 (67) 97 06/05/24 05:15 104 15 119/66 (83) 100 06/05/24 04:45 101 13 113/57 (75) 100 06/05/24 04:15 102 13 121/71 (88) 100 06/05/24 04:00 98 Nasal Cannula* 4 36 06/05/24 03:45 102 12 124/68 (86) 99 LABS: Laboratory: Test 06/05/24 03:51 06/05/24 01:09 06/04/24 19:14 06/04/24 14:13 Range/Units White Blood Count 4.2 L 4.8-10.8 K/uL Red Blood Count 2.59 L 4.00-5.50 MIL/uL Hemoglobin 7.6 L 12.0-16.0 g/dL Hematocrit 23.8 L 36-48 % Mean Corpuscular Volume 91.9 79-99 fL Mean Corpuscular Hemoglobin 29.3 27.0-33.0 pg Mean Corpuscular Hemoglobin Concent 31.9 L 32.0-36.0 g/dL Red Cell Distribution Width 15.7 H 11.0-15.5 % Platelet Count 81 L 130-400 K/uL Mean Platelet Volume 9.1 7.5-10.5 fL Immature Granulocyte % (Auto) 0.5 0-1 % Neutrophils (%) (Auto) 76.5 40.0-77.0 % Lymphocytes (%) (Auto) 14.2 L 21.0-51.0 % Monocytes (%) (Auto) 5.7 3.0-13.0 % Eosinophils (%) (Auto) 2.6 0.0-8.0 % Basophils (%) (Auto) 0.5 0.0-5.0 % Neutrophils # (Auto) 3.3 1.8-7.7 K/uL Lymphocytes # (Auto) 0.6 L 1.0-4.8 K/uL Monocytes # (Auto) 0.2 0.1-1.0 K/uL Eosinophils # (Auto) 0.11 0.00-0.70 K/uL Basophils # (Auto) 0.02 0.00-0.20 K/uL Absolute Immature Granulocyte (auto 0.02 0-1 K/uL Nucleated Red Blood Cells 0.0 0.0-0.19 % Sodium Level 140 136-145 mmol/L Potassium Level 2.7 *L 3.5-5.1 mmol/L Chloride Level 103 101-111 mmol/L Carbon Dioxide Level 29 21-32 mmol/L Blood Urea Nitrogen 6 L 7-18 mg/dL Creatinine 0.9 0.5-1.0 mg/dL Glomerular Filtration Rate Calc 79 >90 mL/min Random Glucose 86 70-105 mg/dL Total Calcium 8.4 L 8.5-10.1 mg/dL Magnesium Level 1.50 L 1.80-2.40 mg/dL Total Bilirubin 0.9 0.2-1.0 mg/dL Aspartate Amino Transf (AST/SGOT) 225 H 10-37 U/L Alanine Aminotransferase (ALT/SGPT) 119 H 12-78 U/L Alkaline Phosphatase 117 50-136 U/L Total Protein 5.7 L 6.0-8.3 g/dL Albumin 2.2 L 3.5-5.0 g/dL Whole Blood Glucose 65 L 70-110 MG/DL Blood Gas Specimen Type Arterial Arterial Blood pH 7.408 7.350-7.450 Arterial Blood Partial Pressure CO2 36 32-45 mmHg Arterial Blood Partial Pressure O2 83.9 83.0-108.0 mmHg Arterial Blood HCO3 22.0 21.0-28.0 mmol/L Arterial Blood Oxygen Saturation 96.4 94.0-98.0 % Arterial Blood Base Excess -2.0 -2.0-3.0 mmol/L Blood Gas Temperature 37.0 35.5-37.0 CELSIUS Blood Gas Flow-by 3.00 0.00-15.00 L/min Blood Gas Vent Mode NC ROOM AIR FiO2 32.0 % Blood Gas Specimen Comment RR,RNLAURA Hemoglobin (Blood Gas) 8.8 L 12.0-16.0 g/dL Sodium (Blood Gas) 137 136-145 MMOL/L Bedside Potassium (Blood Gas) 3.5 3.4-4.5 MMOL/L Bedside Chloride (Blood Gas) 111 H 98-107 MMOL/L Bedside Glucose (Blood Gas) 48 *L 65-95 MG/DL Bedside Ionized Calcium (Blood Gas) 1.27 1.15-1.33 MMOL/L Bedside Lactic Acid (Blood Gas) 0.68 0.36-0.75 MMOL/L Test 06/04/24 13:37 06/04/24 04:13 06/03/24 14:00 Range/Units Vitamin B12 Level 2434 H 193-986 pg/mL Segmented Neutrophils % 78 H 40-70 % Band Neutrophils % 6 H 0-2 % Lymphocytes % (Manual) 11 L 22-44 % Monocytes % (Manual) 3 2-9 % Differential Comment MANUAL DIFFERENTIAL Reactive Lymphocytes 2 H 0-0 % White Cell Morphology Comment REACTIVE LYMPHS 1+ Platelet Morphology Comment DECREASED Red Blood Cell Morphology See comments Uric Acid 5.3 2.6-7.2 mg/dL Phosphorus Level 3.2 2.5-4.9 mg/dL Urine Osmolality 438 50-1200 mOsm/kg Urine Random Creatinine 26.76 L 30-135 mg/dL Urine Random Sodium 145 40-220 mmol/l Urine Random Potassium 29 25-125 mmol/L Urine Random Chloride 141 110-250 mmol/L Current Medications Medications (Trade) Dose Ordered Sig/Mina Route PRN Reason Start Time Stop Time Status Last Admin Dose Admin Acetaminophen (TYLenol 325MG TAB) 650 mg Q4H PRN PO MILD PAIN (1-3) 06/02/24 19:30 07/02/24 19:29 06/04/24 20:49 650 MG Acetaminophen (TYLenol 325MG TAB) 650 mg Q6H PRN PO TEMPERATURE GREATER THAN 101.5 06/02/24 19:30 07/02/24 19:29 Albumin Human 250 ml @ 100 mls/hr AD IV 3/23/25 01:00 06/08/24 00:59 06/03/24 01:15 100 MLS/HR Azithromycin 250 ml @ 250 mls/hr Q24H IV 06/02/24 19:30 06/02/24 19:57 DC Azithromycin 250 ml @ 250 mls/hr Q24H IVPB 06/02/24 18:00 06/03/24 06:48 DC 06/02/24 18:18 250 MLS/HR Cefepime HCl (MAXipime 2 gm vial) 2 gm Q24H IVPB 06/03/24 07:00 06/13/24 06:59 06/05/24 06:26 2 GM Ceftriaxone Sodium 1 gm/ Sodium Chloride 50 ml @ 100 mls/hr Q24H IV 06/02/24 19:30 06/02/24 19:36 DC Ceftriaxone Sodium (ROCEphine 1G INJ) 1 gm Q24H IVPB 06/02/24 20:00 06/03/24 00:08 DC Ceftriaxone Sodium (Rocephin 2gm Inj) 2 gm Q24H IVPB 06/03/24 17:30 06/03/24 06:50 DC Colchicine (COLCHicine 0.6mg TAB) 0.6 mg DAILY PO 06/03/24 09:00 07/03/24 08:59 06/05/24 09:34 0.6 MG Doxycycline Hyclate 250 ml @ 125 mls/hr Q12H IV 06/03/24 14:30 06/13/24 14:29 06/05/24 01:16 125 MLS/HR Famotidine (Pepcid 20mg Vial) 20 mg DAILY IV 06/03/24 09:00 07/03/24 08:59 06/05/24 09:34 20 MG Furosemide (LASix 40MG VIAL) 40 mg ONCE STAT IV 06/04/24 14:01 06/04/24 14:03 DC 06/04/24 14:25 40 MG Gabapentin (NEURontin 100 mg CAP) 100 mg BID PO 06/03/24 09:00 07/03/24 08:59 06/05/24 09:34 100 MG Heparin Sodium (Porcine) (HEParin 5,000 UNIT VIAL) 5,000 unit Q12H SQ 06/03/24 00:30 06/04/24 19:33 DC 06/04/24 00:53 5,000 UNIT Home Med (Home Medication) (Folic Acid 1 TAB) DAILY PO 06/03/24 09:00 07/03/24 08:59 Home Med (Home Medication) CYANOCOBALAMIN (VITAMIN B-12) 1,... DAILY PO 06/06/24 09:00 07/06/24 08:59 Hydromorphone HCl (DiLAUDid 0.5MG INJ) 0.5 mg Q6H PRN IVP SEVERE PAIN (7-10) 06/04/24 11:00 06/04/24 11:01 DC Loperamide HCl (Immodium Liquid) 2 mg AD PRN PO AFTER EACH LOOSE STOOL 06/03/24 12:30 07/03/24 12:29 06/03/24 14:27 2 MG Magnesium Sulfate 50 ml @ 0 mls/hr PROTOCOL PRN IV OTHER [SEE ORDER COMMENTS] 06/02/24 20:00 07/02/24 19:59 06/05/24 05:04 25 MLS/HR Metoprolol Tartrate (loprESSOR) 2.5 mg ONCE IV 06/04/24 18:00 06/04/24 23:00 DC 06/04/24 18:25 2.5 MG Metronidazole/ Sodium Chloride (flaGYL) 500 mg Q8H IV 06/03/24 14:30 06/13/24 14:29 06/05/24 05:30 500 MG Morphine Sulfate (morPHINE 2MG SYG) 2 mg Q4H PRN IVP SEVERE PAIN (7-10) 06/04/24 10:30 06/04/24 11:00 DC Norepinephrine 250 ml @ 0 mls/hr PROTOCOL IV 06/02/24 16:00 06/03/24 00:19 DC 06/02/24 22:52 48 MLS/HR Norepinephrine Bitartrate (Norepineph 16 Mg/250ml NS Premix) 0.1 PROTOCOL IV 06/03/24 00:30 07/03/24 00:29 06/03/24 00:40 16 MG Ondansetron HCl (zoFRAN 4MG INJ) 4 mg Q6H PRN IV NAUSEA/VOMITING 06/02/24 19:30 07/02/24 19:29 06/05/24 06:23 4 MG Pantoprazole Sodium (PROTonix 40MG INJ) 40 mg BID IVP 06/05/24 21:00 07/05/24 20:59 Pharmacy Profile Note (Pharmacy Communication) 1 each ONCE MISC 06/03/24 13:00 06/03/24 13:02 DC Phenylephrine HCl 10 mg/Sodium Chloride 250 ml @ 0 mls/hr PROTOCOL IV 06/02/24 19:30 06/03/24 00:42 DC 06/03/24 00:24 278 MLS/HR Phenylephrine HCl 100 mg/Sodium Chloride 250 ml @ 0 mls/hr PROTOCOL IV 06/03/24 00:30 07/03/24 00:29 06/04/24 07:17 15.66 MLS/HR Potassium Chloride 100 ml @ 100 mls/hr AD PRN IV POTASSIUM PROTOCOL 06/02/24 20:00 07/02/24 19:59 06/05/24 09:48 100 MLS/HR Potassium Chloride (K-Dur/Klor-Con 20meq) 20 meq AD PRN PO POTASSIUM PROTOCOL 06/02/24 20:00 07/02/24 19:59 Potassium Chloride (KCl 10% Elixir 20meq/15ml) 20 meq AD PRN PO POTASSIUM PROTOCOL 06/02/24 20:00 07/02/24 19:59 06/05/24 09:35 20 MEQ Sodium Bicarbonate (Sodium Bicarb 50meq 50ml Vial) 200 meq ONCE IV 06/04/24 16:30 06/04/24 21:30 DC 06/04/24 16:53 200 MEQ Sodium Chloride 1,000 ml @ 100 mls/hr Q10H IV 06/02/24 19:00 06/04/24 14:02 DC 06/03/24 23:33 100 MLS/HR Sodium Chloride 1,000 ml @ 100 mls/hr Q10H IV 06/02/24 19:30 06/02/24 19:57 DC 06/02/24 19:39 100 MLS/HR Tramadol HCl (UltRAM) 50 mg Q6H6 PRN PO PAIN LEVEL 4 TO 6 06/04/24 10:30 06/09/24 10:29 06/04/24 23:51 50 MG Vancomycin HCl (Vancomycin 750mg) 750 mg Q12H IVPB 06/03/24 21:00 06/03/24 14:06 DC Vancomycin HCl (Vancomycin Protocol) 1 each AD IV 06/03/24 07:00 06/03/24 14:06 DC Vitamin B Complex (Vitamin B-12) 1,000 mcg DAILY PO 06/03/24 09:00 06/04/24 10:51 DC 06/03/24 09:24 1,000 MCG Vitamin B Complex (Vitamin B-12) 1,000 mcg DAILY PO 06/04/24 14:00 06/05/24 09:55 DC DIAGNOSTICS / RADIOLOGY: [ ] ASSESSMENT: Acute respiratory failure without mechanical ventilation POA Septic shock requiring vasopressor POA Suspected community-acquired pneumonia vs pulmonary edema, POA UTI due to E coli, POA Dehydration POA Failure to thrive POA Acute kidney injury POA Protein calorie malnutrition POA Chronic anemia POA Endometrial cancer status post chemotherapy and immunotherapy POA Acute metabolic acidosis Acute pulmonary edema PLAN: Patient remains admitted to the ICU 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
[2024-06-05 11:59] LABS: CREATININE 0.9 mg/dL (0.5-1.0); POTASSIUM 3.4 mmol/L (3.5-5.1)
[2024-06-05 15:52] LABS: MAGNESIUM 1.7 mg/dL (1.80-2.40); POTASSIUM 3.2 mmol/L (3.5-5.1)
[2024-06-05] MEDS: furoSEMIDE 20MG VIAL IV ONE (16:20)
[2024-06-05 17:11] LABS: C DIFFICILE TOXIN A/B Not Detected (Not Detected); ENTEROAGGREGATIVE ECOLI Not Detected (Not Detected); GIARDIA LAMBLIA Not Detected (Not Detected); PLESIOMONAS SHIGELOIDES Not Detected (Not Detected); SAPOVIRUS Not Detected (Not Detected); SHIGELLA/ENTEROINVASIVE E COLI Not Detected (Not Detected); VIBRIO Not Detected (Not Detected); VIBRIO CHOLERAE Not Detected (Not Detected)
--- NOTE | 2024-06-05 17:35 | NUR ---
Patient arrived to unit awake, alert and oriented x 4. No pain reported, urine output of 250mls on arrival, BP 135/68 P 115 SpO2 100 with 3L of O2 via nasal cannula.
[2024-06-05] MEDS: PANTOPrazole 40 MG/VIAL IVP SCH (19:43)
[2024-06-05] MEDS: PANTOPrazole 40 MG/VIAL ONE (19:44)
[2024-06-05 20:52] LABS: MAGNESIUM 2.4 mg/dL (1.80-2.40)
--- NOTE | 2024-06-05 22:37 | NUR ---
potassium 3.0 patient on clears diet but she is refusing po potassium. she says she cannot swallow even the liquid potassium. iv potassiums given.
[2024-06-06] VITALS (7 sets, daily range): BP systolic 102–129; BP diastolic 49–70; PULSE 104–117; RESP 16–18; TEMP 98.1–99; O2SAT 94–96
[2024-06-06 04:19] LABS: BASOPHILS # (AUTO) 0.03 K/uL (0.00-0.20); BASOPHILS % (AUTO) 0.9 % (0.0-5.0); EOSINOPHILS # (AUTO) 0.11 K/uL (0.00-0.70); EOSINOPHILS % (AUTO) 3.2 % (0.0-8.0); HEMATOCRIT 23.3 % (36-48); IMMATURE GRANULOCYTE ABSOLUTE 0.01 K/uL (0-1); LYMPHOCYTES # (AUTO) 0.8 K/uL (1.0-4.8); LYMPHOCYTES % (AUTO) 22.4 % (21.0-51.0); MEAN CORPUSCULAR HGB CONC 31.8 g/dL (32.0-36.0); MEAN CORPUSCULAR VOLUME 91.4 fL (79-99); MONOCYTES # (AUTO) 0.3 K/uL (0.1-1.0); MONOCYTES % (AUTO) 8.5 % (3.0-13.0); NEUTROPHILS # (AUTO) 2.2 K/uL (1.8-7.7); NEUTROPHILS % (AUTO) 64.7 % (40.0-77.0); PLATELET COUNT (AUTO) 93 K/uL (130-400); RED BLOOD CELL COUNT(AUTO) 2.55 MIL/uL (4.00-5.50); RED CELL DISTRIBUTION WIDTH 15.7 % (11.0-15.5); WHITE BLOOD COUNT (AUTO) 3.4 K/uL (4.8-10.8)
[2024-06-06 04:34] LABS: CREATININE 0.7 mg/dL (0.5-1.0); MAGNESIUM 1.8 mg/dL (1.80-2.40)
--- NOTE | 2024-06-06 04:47 | NUR ---
potassium 3.0 explained about risks and benefits about po potassium. patient is still refusing po potassium. she claims she will "vomit the medication."
[2024-06-06] MEDS ORDERED: GLUCAGON 1MG KIT 1 MG ML IM PRN (05:30)
--- NOTE | 2024-06-06 05:32 | NUR ---
potassium elixir and blood glucose of 59 gave patient potassium with apple juice and extra sugar. the patient vomited 200 ml of brown fluid. will give d50 for her blood sugar of 59. will continue to monitor patient.
[2024-06-06] MEDS: DEXTROSE 50%-WATER 50 ML DISP.SYRIN IV PRN (05:34)
--- NOTE | 2024-06-06 09:15 | PN ---
SUBJECTIVE: The patient is seen in ICU. The patient has been in ICU and off and on pressors. This patient has received intermittent diuretics. Lung infiltrate, pleural effusion has been present. The patient has underlying multiple other comorbidities. She looks weak, pale. She is quite anemic. The patient has acute respiratory failure, septic shock before, pneumonia with pulmonary edema, UTI, failure to thrive. The patient has been treated for acidosis and pulmonary edema. The patient remains critically ill. No other associated symptoms. No other aggravating or relieving factors. REVIEW OF SYSTEMS: CONSTITUTIONAL: Weakness with no fever, chills or rigors. HEENT: With no headache, oral ulcers, sore throat or difficulty swallowing. RESPIRATORY: With no cough, expectoration, pleuritic pain. CARDIOVASCULAR: Has shortness of breath. No orthopnea or PND. GASTROINTESTINAL: Negative for nausea, vomiting or diarrhea reported. GENITOURINARY: Negative for dysuria or hematuria. DERMATOLOGICAL: No rashes, pruritus or skin lesion. ENDOCRINE: No polyuria, polydipsia or polyphagia. All the other systemic review is unchanged. PHYSICAL EXAMINATION: GENERAL: Critically ill, lying in bed, seen in ICU. VITAL SIGNS: Blood pressure is soft, 121/48, pulse is 117, respiratory rate 23. HEENT: Head is atraumatic. Pupils are round and reactive. Sclerae are anicteric. Conjunctivae not pale. Oral mucosa is not dry. NECK: Supple. No masses, bruits. Thyroid is palpable. Neck has no bruits. CHEST: Shows equal thoracic percussion note being resonant in all areas. CARDIAC: Regular rhythm. No rub. No S3, S4. No parasternal heave. ABDOMEN: No guarding or tenderness. Bowel sounds are normoactive. No free fluid. EXTREMITIES: With no edema and no cyanosis, clubbing. BACK: No tenderness or back deformities. LYMPHATIC: With no lymph node swelling in neck or axillary area. NEUROLOGIC: Unchanged, nonfocal. No other cranial nerve palsies. LABORATORY DATA: Labs have been reviewed in detail with a hemoglobin low up to 7.6. Potassium has been low up to 2.7 and old records reviewed. PROBLEMS: Renal dysfunction, anemia, multiple electrolyte problem. The patient has hypomagnesemia, hypokalemia, failure to thrive, endometrial cancer. The patient has hypotension requiring pressors before and multiple other comorbidities. PLAN: The patient is admitted to the ICU before. As needed, has pressors. The patient has oxygen supplementation. Nonsteroidal drugs will be avoided. Fluid as needed. Intake, output, weight, electrolytes, renal function will be monitored. Follow up CBC, CMP ordered. Nonsteroidal drugs to be avoided. IV Dilaudid 0.5 q. 6 hours for pain. Antibiotic therapy has been given. Dose of medicine to be adjusted and we will be following up closely. I have discussed with other team members also. We will be following up closely in the ICU. TID: [id number] RECEIPT: [id number]
--- NOTE | 2024-06-06 11:55 | PN ---
[facility] PROGRESS NOTE Date of Service: Jun 06, 2024 Time of Service: 11:52 SUBJECTIVE: 06/03 patient seen at bedside, no acute events overnight. She is on a low dose of pressors, we will wean as able. WBC improved from 12.4 down to 11.2, hemoglobin improved from 9.7 up to 9.9, creatinine improved from 1.5 down to 1.3, CRP elevated at 197.6, remainder of her labs are relatively unremarkable. 06/04 patient is seen and examined bedside, case discussed with the RN, the patient with generalized body pain, she stated that she takes tramadol at home, requesting some pain medication. During my visit she still mildly tachycardic with a heart rate ranging between 120-130, remains on Shon-Synephrine for BP support. She is getting broad-spectrum IV antibiotics, on 4 L via nasal cannula. CBC with a hemoglobin 8.2, hematocrit 26.7, platelet count of 88. CMP with sodium 136, potassium 3.2, bicarbonate of 16, magnesium 1.7. Earlier this morning blood glucose 21. We will do stat CBC, we will replace electrolytes IV per protocol, follow a stat ABG as well. 06/05 patient is seen and examined at bedside, case discussed with the RN. During my visit the patient remains in bed, she looks more comfortable, less in distress compared to yesterday, remains on supplemental oxygen via nasal cannula 4 L, saturating 98%. Chest x-ray done yesterday showed bilateral pulmonary infiltrates and pleural effusions with left more than right, a dose of furosemide 40 mg IV x1 was given. So far urine output has been over 4 L in the last 24 hours. Patient denied chest pain, she feels less short of breath. Currently she is off Shon-Synephrine. BP 118/57. Hemoglobin 7.6, hematocrit 23.8. Repeat ABG yesterday pH 7.4, bicarb 22. 06/06 patient is seen and examined at bedside, case discussed with the RN, no acute events overnight, patient downgraded from the ICU to the medical floor, she feels better, alert oriented x3, BP 107/61, heart rate of 117, saturating 96% on 3 L nasal cannula. No chest pain, no nausea, no vomiting. Hemoglobin today at 7.2. REVIEW OF SYSTEMS 12 point review of systems negative unless noted in HPI PHYSICAL EXAM GENERAL APPEARANCE: Patient appears generally weak and pale looking The patient is awake, alert, and oriented, in no acute cardiopulmonary distress NEUROLOGICAL: Cranial nerves II-XII grossly intact. Motor is 4/4 in bilateral upper and lower extremities proximal to distal. No sensory deficits. HEENT: Face is symmetric. Pupils are equal and reactive. Extraocular movements are intact. NECK: Supple. No JVD. No thyromegaly. No submental, submandibular, pre- /postauricular, occipital or supraclavicular lymphadenopathy. CHEST: Normal chest expansion. No Telemetry. LUNGS: Absence of any rales, rhonchi or any wheezing. CARDIOVASCULAR: Tachycardic Regular. S1 and S2 normal. No appreciable rubs, murmurs or gallops. ABDOMEN: Soft, nontender, and nondistended. There is no rebound, voluntary guarding, or rigidity. : Deferred. No Ribeiro. EXTREMITIES: Non-edematous and not cyanotic. No clubbing. Good capillary refill. SKIN: No skin breakdown. Vital Signs (last 8hr) Date Time Temp Pulse Resp B/P (MAP) Pulse Ox O2 Delivery O2 Flow Rate FiO2 06/06/24 08:00 98.2 117 16 107/61 96 Nasal Cannula 3.0 LABS: Laboratory: Test 06/06/24 11:00 06/06/24 04:00 06/05/24 03:51 06/04/24 19:14 Range/Units Whole Blood Glucose 70 70-110 MG/DL White Blood Count 3.4 L 4.8-10.8 K/uL Red Blood Count 2.55 L 4.00-5.50 MIL/uL Hemoglobin 7.4 L 12.0-16.0 g/dL Hematocrit 23.3 L 36-48 % Mean Corpuscular Volume 91.4 79-99 fL Mean Corpuscular Hemoglobin 29.0 27.0-33.0 pg Mean Corpuscular Hemoglobin Concent 31.8 L 32.0-36.0 g/dL Red Cell Distribution Width 15.7 H 11.0-15.5 % Platelet Count 93 L 130-400 K/uL Mean Platelet Volume 9.3 7.5-10.5 fL Immature Granulocyte % (Auto) 0.3 0-1 % Neutrophils (%) (Auto) 64.7 40.0-77.0 % Lymphocytes (%) (Auto) 22.4 21.0-51.0 % Monocytes (%) (Auto) 8.5 3.0-13.0 % Eosinophils (%) (Auto) 3.2 0.0-8.0 % Basophils (%) (Auto) 0.9 0.0-5.0 % Neutrophils # (Auto) 2.2 1.8-7.7 K/uL Lymphocytes # (Auto) 0.8 L 1.0-4.8 K/uL Monocytes # (Auto) 0.3 0.1-1.0 K/uL Eosinophils # (Auto) 0.11 0.00-0.70 K/uL Basophils # (Auto) 0.03 0.00-0.20 K/uL Absolute Immature Granulocyte (auto 0.01 0-1 K/uL Nucleated Red Blood Cells 0.0 0.0-0.19 % Sodium Level 140 136-145 mmol/L Potassium Level 3.0 *L 3.5-5.1 mmol/L Chloride Level 102 101-111 mmol/L Carbon Dioxide Level 33 H 21-32 mmol/L Blood Urea Nitrogen 3 L 7-18 mg/dL Creatinine 0.7 0.5-1.0 mg/dL Glomerular Filtration Rate Calc 107 >90 mL/min Random Glucose 70 70-105 mg/dL Total Calcium 8.8 8.5-10.1 mg/dL Magnesium Level 1.80 1.80-2.40 mg/dL Total Bilirubin 0.9 0.2-1.0 mg/dL Aspartate Amino Transf (AST/SGOT) 225 H 10-37 U/L Alanine Aminotransferase (ALT/SGPT) 119 H 12-78 U/L Alkaline Phosphatase 117 50-136 U/L Total Protein 5.7 L 6.0-8.3 g/dL Albumin 2.2 L 3.5-5.0 g/dL Blood Gas Specimen Type Arterial Arterial Blood pH 7.408 7.350-7.450 Arterial Blood Partial Pressure CO2 36 32-45 mmHg Arterial Blood Partial Pressure O2 83.9 83.0-108.0 mmHg Arterial Blood HCO3 22.0 21.0-28.0 mmol/L Arterial Blood Oxygen Saturation 96.4 94.0-98.0 % Arterial Blood Base Excess -2.0 -2.0-3.0 mmol/L Blood Gas Temperature 37.0 35.5-37.0 CELSIUS Blood Gas Flow-by 3.00 0.00-15.00 L/min Blood Gas Vent Mode NC ROOM AIR FiO2 32.0 % Blood Gas Specimen Comment RR,RNLAURA Test 06/04/24 14:13 06/04/24 13:37 Range/Units Hemoglobin (Blood Gas) 8.8 L 12.0-16.0 g/dL Sodium (Blood Gas) 137 136-145 MMOL/L Bedside Potassium (Blood Gas) 3.5 3.4-4.5 MMOL/L Bedside Chloride (Blood Gas) 111 H 98-107 MMOL/L Bedside Glucose (Blood Gas) 48 *L 65-95 MG/DL Bedside Ionized Calcium (Blood Gas) 1.27 1.15-1.33 MMOL/L Bedside Lactic Acid (Blood Gas) 0.68 0.36-0.75 MMOL/L Vitamin B12 Level 2434 H 193-986 pg/mL Current Medications Medications (Trade) Dose Ordered Sig/Mina Route PRN Reason Start Time Stop Time Status Last Admin Dose Admin Acetaminophen (TYLenol 325MG TAB) 650 mg Q4H PRN PO MILD PAIN (1-3) 06/02/24 19:30 07/02/24 19:29 06/04/24 20:49 650 MG Acetaminophen (TYLenol 325MG TAB) 650 mg Q6H PRN PO TEMPERATURE GREATER THAN 101.5 06/02/24 19:30 07/02/24 19:29 Albumin Human 250 ml @ 100 mls/hr AD IV 06/03/24 01:00 06/08/24 00:59 06/03/24 01:15 100 MLS/HR Azithromycin 250 ml @ 250 mls/hr Q24H IV 06/02/24 19:30 06/02/24 19:57 DC Azithromycin 250 ml @ 250 mls/hr Q24H IVPB 06/02/24 18:00 06/03/24 06:48 DC 06/02/24 18:18 250 MLS/HR Cefepime HCl (MAXipime 2 gm vial) 2 gm Q24H IVPB 06/03/24 07:00 06/13/24 06:59 06/06/24 06:02 2 GM Ceftriaxone Sodium 1 gm/ Sodium Chloride 50 ml @ 100 mls/hr Q24H IV 06/02/24 19:30 06/02/24 19:36 DC Ceftriaxone Sodium (ROCEphine 1G INJ) 1 gm Q24H IVPB 06/02/24 20:00 06/03/24 00:08 DC Ceftriaxone Sodium (Rocephin 2gm Inj) 2 gm Q24H IVPB 06/03/24 17:30 06/03/24 06:50 DC Colchicine (COLCHicine 0.6mg TAB) 0.6 mg DAILY PO 06/03/24 09:00 07/03/24 08:59 06/06/24 09:24 0.6 MG Dextrose (D50w) 50 ml AD PRN IV HYPOGLYCEMIA PROTOCOL 06/06/24 05:30 07/06/24 05:29 06/06/24 05:34 50 ML Doxycycline Hyclate 250 ml @ 125 mls/hr Q12H IV 06/03/24 14:30 06/13/24 14:29 06/06/24 03:10 125 MLS/HR Famotidine (Pepcid 20mg Vial) 20 mg DAILY IV 06/03/24 09:00 07/03/24 08:59 06/06/24 09:24 20 MG Furosemide (LASix 40MG VIAL) 40 mg ONCE STAT IV 06/04/24 14:01 06/04/24 14:03 DC 06/04/24 14:25 40 MG Gabapentin (NEURontin 100 mg CAP) 100 mg BID PO 06/03/24 09:00 07/03/24 08:59 06/06/24 09:25 100 MG Glucagon (Glucagon 1mg Kit) 1 mg AD PRN IM HYPOGLYCEMIA PROTOCOL 06/06/24 05:30 07/06/24 05:29 Heparin Sodium (Porcine) (HEParin 5,000 UNIT VIAL) 5,000 unit Q12H SQ 06/03/24 00:30 06/04/24 19:33 DC 06/04/24 00:53 5,000 UNIT Home Med (Home Medication) (Folic Acid 1 TAB) DAILY PO 06/03/24 09:00 07/03/24 08:59 06/05/24 16:28 1 EACH Home Med (Home Medication) CYANOCOBALAMIN (VITAMIN B-12) 1,... DAILY PO 06/06/24 09:00 07/06/24 08:59 Hydromorphone HCl (DiLAUDid 0.5MG INJ) 0.5 mg Q6H PRN IVP SEVERE PAIN (7-10) 06/04/24 11:00 06/04/24 11:01 DC Loperamide HCl (Immodium Liquid) 2 mg AD PRN PO AFTER EACH LOOSE STOOL 06/03/24 12:30 07/03/24 12:29 06/03/24 14:27 2 MG Magnesium Sulfate 50 ml @ 0 mls/hr PROTOCOL PRN IV OTHER [SEE ORDER COMMENTS] 06/02/24 20:00 07/02/24 19:59 06/06/24 05:02 15 MLS/HR Metoprolol Tartrate (loprESSOR) 2.5 mg ONCE IV 06/04/24 18:00 06/04/24 23:00 DC 06/04/24 18:25 2.5 MG Metronidazole/ Sodium Chloride (flaGYL) 500 mg Q8H IV 06/03/24 14:30 06/13/24 14:29 06/06/24 05:01 500 MG Morphine Sulfate (morPHINE 2MG SYG) 2 mg Q4H PRN IVP SEVERE PAIN (7-10) 06/04/24 10:30 06/04/24 11:00 DC Norepinephrine 250 ml @ 0 mls/hr PROTOCOL IV 06/02/24 16:00 06/03/24 00:19 DC 06/02/24 22:52 48 MLS/HR Norepinephrine Bitartrate (Norepineph 16 Mg/250ml NS Premix) 0.1 PROTOCOL IV 06/03/24 00:30 07/03/24 00:29 06/03/24 00:40 16 MG Ondansetron HCl (zoFRAN 4MG INJ) 4 mg Q6H PRN IV NAUSEA/VOMITING 06/02/24 19:30 07/02/24 19:29 06/06/24 09:28 4 MG Pantoprazole Sodium (PROTonix 40MG INJ) 40 mg BID IVP 06/05/24 21:00 07/05/24 20:59 06/06/24 09:24 40 MG Pharmacy Profile Note (Pharmacy Communication) 1 each ONCE MISC 06/03/24 13:00 06/03/24 13:02 DC Phenylephrine HCl 10 mg/Sodium Chloride 250 ml @ 0 mls/hr PROTOCOL IV 06/02/24 19:30 06/03/24 00:42 DC 06/03/24 00:24 278 MLS/HR Phenylephrine HCl 100 mg/Sodium Chloride 250 ml @ 0 mls/hr PROTOCOL IV 06/03/24 00:30 07/03/24 00:29 06/04/24 07:17 15.66 MLS/HR Potassium Chloride 100 ml @ 100 mls/hr AD PRN IV POTASSIUM PROTOCOL 06/02/24 20:00 07/02/24 19:59 06/06/24 05:02 100 MLS/HR Potassium Chloride (K-Dur/Klor-Con 20meq) 20 meq AD PRN PO POTASSIUM PROTOCOL 06/02/24 20:00 07/02/24 19:59 06/06/24 09:34 20 MEQ Potassium Chloride (KCl 10% Elixir 20meq/15ml) 20 meq AD PRN PO POTASSIUM PROTOCOL 06/02/24 20:00 07/02/24 19:59 06/06/24 05:02 20 MEQ Sodium Bicarbonate (Sodium Bicarb 50meq 50ml Vial) 200 meq ONCE IV 06/04/24 16:30 06/04/24 21:30 DC 06/04/24 16:53 200 MEQ Sodium Chloride 1,000 ml @ 100 mls/hr Q10H IV 06/02/24 19:00 06/04/24 14:02 DC 06/03/24 23:33 100 MLS/HR Sodium Chloride 1,000 ml @ 100 mls/hr Q10H IV 06/02/24 19:30 06/02/24 19:57 DC 06/02/24 19:39 100 MLS/HR Tramadol HCl (UltRAM) 50 mg Q6H6 PRN PO PAIN LEVEL 4 TO 6 06/04/24 10:30 06/09/24 10:29 06/05/24 23:42 50 MG Vancomycin HCl (Vancomycin 750mg) 750 mg Q12H IVPB 06/03/24 21:00 06/03/24 14:06 DC Vancomycin HCl (Vancomycin Protocol) 1 each AD IV 06/03/24 07:00 06/03/24 14:06 DC Vitamin B Complex (Vitamin B-12) 1,000 mcg DAILY PO 06/03/24 09:00 06/04/24 10:51 DC 06/03/24 09:24 1,000 MCG Vitamin B Complex (Vitamin B-12) 1,000 mcg DAILY PO 06/04/24 14:00 06/05/24 09:55 DC DIAGNOSTICS / RADIOLOGY: [ ] ASSESSMENT: Acute respiratory failure without mechanical ventilation POA Septic shock requiring vasopressor POA Suspected community-acquired pneumonia vs pulmonary edema, POA UTI due to E coli, POA Dehydration POA Failure to thrive POA Acute kidney injury POA Protein calorie malnutrition POA Chronic anemia POA Endometrial cancer status post chemotherapy and immunotherapy POA Acute metabolic acidosis Acute pulmonary edema PLAN: Patient downgraded to the medical Continue the patient on supervisor international reservations Continue supplemental oxygen via nasal cannula 4 L, to keep O2 sat greater than 92%, wean as tolerated Continue to follow input recommendation Patient with a hemoglobin 7.2, CBC q.8 hours, transfuse 1 unit of PRBC if hemoglobin less than seven, follow stool occult blood. Echocardiogram shows a small circumferential pericardial effusion, no indications for pericardial tamponade Continue Famotidine 20 mg bid for GI prophylaxis GI and DVT prophylaxis Prognosis is guarded Disposition: Discharge plan discussed with patient, he would like to be discharged home when medically stable. We will request PT to evaluate the patient. MARLENE INIGUEZ MD Jun 06, 2024 11:54
--- NOTE | 2024-06-06 12:35 | HMCIMG ---
PORTABLE CHEST RADIOGRAPH INDICATION: hypoxic resp failure COMPARISON: 06/04/2024 FINDINGS/IMPRESSION: clinical dental technician leads overlie the field of view. Stable left-sided Port-A-Cath. Stable heart size without pulmonary vascular congestion. Favorable mild to moderate decrease in bilateral lung airspace disease and also decrease in size of small left pleural effusion, without pneumothorax. Continued follow-up is recommended in order to ensure complete resolution.
--- NOTE | 2024-06-06 12:59 | PN ---
NEPHROLOGY PROGRESS NOTE Date/Time Patient Seen: Jun 06, 2024 SUBJECTIVE: This is a 49-year-old female with past medical history of diabetes, hypotension, anemia, pericarditis, neuropathy, constipation, endometrial cancer status post chemotherapy and immunotherapy She was brought by EMS to the ED for complaints of generalized body weakness and loss of appetite for two days. Patient was having nausea and vomiting started today she has approximately 4 episodes of bilious vomitus she said. Reportedly patient was hypoxic ,tachycardic and hypotensive per EMS . Chest x-ray result revealed mild bilateral pulmonary infiltrates are seen may be related to mild pulmonary vascular congestion with possible superimposed pneumonitis. While in the ER patient received fluid resuscitation of LR 30 mL per kg over 3 hours, patient was given Rocephin 1 g and azithromycin IV , Zofran 4 mg IV and patient was started on Levophed drip. We will admit patient to ICU for further medical management. She was noted with elevated BUN/creatinine We have been consulted for renal failure. Renal function is stable Electrolytes show hypokalemia, replacement has been ordered Abdominal ultrasound showed no hydronephrosis. Simple right renal cyst measuring 2 cm. She was seen in the medical floor, in no acute distress Family at the bedside Prognosis remains guarded REVIEW OF SYSTEMS: GENERAL: Negative for any nausea, vomiting, fevers, chills, or weight loss. NEUROLOGIC: Negative for any blurry vision, blind spots, double vision, facial asymmetry, dysphagia, dysarthria, hemiparesis, hemisensory deficits, vertigo, ataxia. HEENT: Negative for any head trauma, neck trauma, neck stiffness, photophobia, phonophobia, sinusitis, rhinitis. CARDIAC: Negative for any chest pain, dyspnea on exertion, paroxysmal nocturnal dyspnea, peripheral edema. PULMONARY: Negative for any shortness of breath, wheezing, COPD, or TB exposure. GASTROINTESTINAL: Negative for any abdominal pain, nausea, vomiting, bright red blood per rectum, melena. GENITOURINARY: Negative for any dysuria, hematuria, incontinence. INTEGUMENTARY: Negative for any rashes, cuts, insect bites. RHEUMATOLOGIC: Negative for any joint pains, photosensitive rashes, history of vasculitis or kidney problems. HEMATOLOGIC: Negative for any abnormal bruising, frequent infections or bleeding. PHYSICAL EXAM: GENERAL: Alert and oriented x 3. No acute distress. Well-nourished. EYES: EOMI. Anicteric. HENT: Moist mucous membranes. No scleral icterus. No cervical lymphadenopathy. LUNGS: Clear to auscultation bilaterally. No accessory muscle use. CARDIOVASCULAR: Regular rate and rhythm. No murmur. No JVD. ABDOMEN: Soft, non-tender and non-distended. No palpable masses. EXTREMITIES: No edema. Non-tender.?SKIN: No rashes or lesions. Warm. NEUROLOGIC: No focal neurological deficits. CN II-XII grossly intact, but not individually tested. PSYCHIATRIC: Cooperative. Appropriate mood and affect. LABORATORY: [ ] Hematology Labs: Test 06/06/24 04:00 Range/Units White Blood Count 3.4 L 4.8-10.8 K/uL Red Blood Count 2.55 L 4.00-5.50 MIL/uL Hemoglobin 7.4 L 12.0-16.0 g/dL Hematocrit 23.3 L 36-48 % Mean Corpuscular Volume 91.4 79-99 fL Mean Corpuscular Hemoglobin 29.0 27.0-33.0 pg Mean Corpuscular Hemoglobin Concent 31.8 L 32.0-36.0 g/dL Red Cell Distribution Width 15.7 H 11.0-15.5 % Platelet Count 93 L 130-400 K/uL Mean Platelet Volume 9.3 7.5-10.5 fL Immature Granulocyte % (Auto) 0.3 0-1 % Neutrophils (%) (Auto) 64.7 40.0-77.0 % Lymphocytes (%) (Auto) 22.4 21.0-51.0 % Monocytes (%) (Auto) 8.5 3.0-13.0 % Eosinophils (%) (Auto) 3.2 0.0-8.0 % Basophils (%) (Auto) 0.9 0.0-5.0 % Neutrophils # (Auto) 2.2 1.8-7.7 K/uL Lymphocytes # (Auto) 0.8 L 1.0-4.8 K/uL Monocytes # (Auto) 0.3 0.1-1.0 K/uL Eosinophils # (Auto) 0.11 0.00-0.70 K/uL Basophils # (Auto) 0.03 0.00-0.20 K/uL Absolute Immature Granulocyte (auto 0.01 0-1 K/uL Nucleated Red Blood Cells 0.0 0.0-0.19 % Chemistry Labs: Test 06/06/24 11:00 06/06/24 04:00 06/05/24 09:00 06/05/24 03:51 Range/Units Whole Blood Glucose 70 70-110 MG/DL Sodium Level 140 136-145 mmol/L Potassium Level 3.0 *L 3.5-5.1 mmol/L Chloride Level 102 101-111 mmol/L Carbon Dioxide Level 33 H 21-32 mmol/L Blood Urea Nitrogen 3 L 7-18 mg/dL Creatinine 0.7 0.5-1.0 mg/dL Glomerular Filtration Rate Calc 107 >90 mL/min Random Glucose 70 70-105 mg/dL Total Calcium 8.8 8.5-10.1 mg/dL Magnesium Level 1.80 1.80-2.40 mg/dL Cortisol AM Sample 11.1 6.2-19.4 ug/dL Total Bilirubin 0.9 0.2-1.0 mg/dL Aspartate Amino Transf (AST/SGOT) 225 H 10-37 U/L Alanine Aminotransferase (ALT/SGPT) 119 H 12-78 U/L Alkaline Phosphatase 117 50-136 U/L Total Protein 5.7 L 6.0-8.3 g/dL Albumin 2.2 L 3.5-5.0 g/dL Test 06/04/24 13:37 Range/Units Vitamin B12 Level 2434 H 193-986 pg/mL DIAGNOSTICS / RADIOLOGY: REASON: hypoxic resp failure ORDERING PHYSICIAN: JAMES DURÁN PROCEDURE: CXR1VW - CHEST 1VW PORTABLE CHEST RADIOGRAPH INDICATION: hypoxic resp failure COMPARISON: 06/04/2024 FINDINGS/IMPRESSION: monitoring specialist leads overlie the field of view. Stable left-sided Port-A-Cath. Stable heart size without pulmonary vascular congestion. Favorable mild to moderate decrease in bilateral lung airspace disease and also decrease in size of small left pleural effusion, without pneumothorax. Continued follow-up is recommended in order to ensure complete resolution. DICTATED BY: LIZZY LONDONO MD DATE: 06/06/24 1228 REASON: SOB ORDERING PHYSICIAN: MARLENE INIGUEZ MD PROCEDURE: CXR1VW - CHEST 1VW CHEST 1VW HISTORY: Shortness of breath COMPARISON: 06/03/2024 FINDINGS: A frontal projection of the chest was obtained. Bilateral pulmonary infiltrates and pleural effusions are seen with left more than right. The heart is borderline enlarged. Port-A-Cath is seen entering from the left. Degenerative changes are seen. No evidence of aortic calcification is seen. IMPRESSION: 1. Bilateral pulmonary infiltrates and pleural effusions with left more than right. DICTATED BY: EMILY WETZEL MD DATE: 06/04/24 1403 REASON: N/V/D ORDERING PHYSICIAN: ALCIDES NGUYEN MD PROCEDURE: ABDOMEN - US ABDOMINAL COMPLETE US ABDOMINAL COMPLETE HISTORY: Nausea, vomiting and diarrhea COMPARISON: None TECHNIQUE: Multiple transverse and longitudinal ultrasound images of the abdomen were obtained. FINDINGS: Abdominal aorta and inferior vena cava are unremarkable. The visualized portion of the pancreas is within normal limits. There are bilateral pleural effusions. Liver measured 11 cm. Gallstones are seen in the gallbladder. Common duct measures 2.6 mm. No evidence of gallbladder wall thickening is seen. Both kidneys are seen. Right kidney measures 11 x 5 x 4 cm. Left kidney measures 11 x 5 x 5 cm. There is right renal cyst measuring 2 cm. No hydronephrosis is seen of the both kidneys. The spleen is grossly unremarkable. IMPRESSION: 1. No gallstone or ductal dilatation is seen. 2. No hydronephrosis is seen. Simple right renal cyst measuring 2 cm. DICTATED BY: EMILY WETZEL MD DATE: 06/04/24 0958 REASON: Assess for pericardial effusion ORDERING PHYSICIAN: RICH RUFF MD PROCEDURE: ECHO FU LD - ECHO 2-D F/U-LTD APPROVED REPORT EXAM: LIMITED Two-dimensional and M-mode echocardiogram. INDICATION ICD: pericardial effusion 2D Dimensions IVC diam 1.9 cm Left Ventricle The left ventricle is normal in structure and function. The Ejection Fraction is >55%. Right Ventricle Right ventricle is normal size. The right ventricular systolic function is normal. Mitral Valve Mitral valve opens well. No mitral valve prolapse. Pericardium Small circumferential pericardial effusion, 0.9 cm in maximum dimension. No echo indications of pericardial tamponade. Other Information Quality : Limited/Follow-up Rhythm : NSR Conclusion Small circumferential pericardial effusion, 0.9 cm in maximum dimension. No echo indications of pericardial tamponade. Grossly normal LV and RV systolic function. DICTATED BY: JUSTYNA SUAREZ DO DATE: 06/03/24 0938 REASON: SHORTNESS OF BREATH ORDERING PHYSICIAN: FLORES POSADA PROCEDURE: CXR1VW - CHEST 1VW CHEST 1VW HISTORY: Shortness of breath COMPARISON: 06/02/2024 FINDINGS: A frontal projection of the chest was obtained. There are bilateral pulmonary infiltrates suggestive of pulmonary vascular congestion with possible superimposed pneumonitis. The heart is borderline enlarged. Port-A-Cath is seen entering from the left. No evidence of aortic calcification is seen. IMPRESSION: 1. Bilateral pulmonary infiltrates are seen suggestive of pulmonary vascular congestion with possible superimposed pneumonitis. DICTATED BY: EMILY WETZEL MD DATE: 06/03/24 0822 REASON: SEPSIS ORDERING PHYSICIAN: MAGGIE COLLADO MD PROCEDURE: CXR1VW - CHEST 1VW CHEST 1VW HISTORY: Sepsis COMPARISON: None FINDINGS: A frontal projection of the chest was obtained. Mild bilateral pulmonary infiltrates are seen may be related to mild pulmonary vascular congestion with possible superimposed pneumonitis. The heart is borderline enlarged. Port-A-Cath is seen entering from the left. Degenerative changes are seen. No evidence of aortic calcification is seen. IMPRESSION: 1. Mild bilateral pulmonary infiltrates are seen may be related to mild pulmonary vascular congestion with possible superimposed pneumonitis. DICTATED BY: EMILY WETZEL MD DATE: 06/02/24 1610 ASSESSMENT: Acute kidney injury Sepsis with septic shock Acute respiratory failure Severe dehydration/ hypovolemia Acute nausea, vomiting, diarrhea Frailty/debility/general body weakness Failure to thrive Protein calorie malnutrition/hypoalbuminemia Acute on chronic anemia leukocytosis Electrolyte derangement (hyponatremia, hypochloremia) Endometrial cancer status post chemo and immunotherapy Leukocytosis Diabetes Hypotension Anemia History of pericarditis Neuropathy Constipation PLAN: Labs, diagnostic, radiologic exams reviewed and interpreted by myself and supervising physician. We have reviewed external records in detail Potassium replacement has been ordered Require close monitoring of renal function and electrolytes Order CBC, CMP,and electrolytes in am Continue with antibiotics BiPAP as necessary, for respiratory distress Monitor blood pressure adjust medication doses as needed Avoid hypotensive episodes May use Dilaudid 0.5 mg IV every 6 hours as needed for severe pain Monitor blood sugars Strict intake, output, and daily weight should be monitored Please renally adjust medications Avoid nephrotoxic and nonsteroidal drugs Avoid contrast if possible Will continue to monitor renal function, anemia, electrolytes Treatment plan discussed with patient Questions were answered We have discussed with the other team physicians in detail about the care plan We will continue to monitor the patient closely ATTESTATION BY PHYSICIAN I have seen and examined the patient. I reviewed the documentation, medical decision making, and treatment plan as noted by the mid-level provider above. I agree with the findings and plan of care. ALCIDES NGUYEN MD, [facility] Jun 06, 2024 12:59
[2024-06-06 15:16] LABS: HEMATOCRIT 24.1 % (36-48); MEAN CORPUSCULAR HEMOGLOBIN 29.5 pg (27.0-33.0); MEAN CORPUSCULAR HGB CONC 32.4 g/dL (32.0-36.0); MEAN CORPUSCULAR VOLUME 91.3 fL (79-99); RED BLOOD CELL COUNT(AUTO) 2.64 MIL/uL (4.00-5.50); RED CELL DISTRIBUTION WIDTH 15.8 % (11.0-15.5); WHITE BLOOD COUNT (AUTO) 3.4 K/uL (4.8-10.8)
--- NOTE | 2024-06-06 16:31 | PN ---
[facility] PROGRESS NOTE Date Patient Seen: Jun 06, 2024 Time of Visit: 1220 Supervising Physician: Dr. Clark Primary Care Physician: Attending: Dariusz hospitalist team Outpatient Specialists: Inpatient Consults: BIS, critical Care team PROBLEM LIST: Sepsis with septic shock, POA requiring two pressors, resolved 2/2 Ecoli Acute complicated cystitis, POA Acute respiratory failure, POA Severe dehydration/ hypovolemia, POA Acute nausea, vomiting, diarrhea, POA Frailty/debility/general body weakness Failure to thrive, POA Acute kidney injury, POA, GFR 43 (GFR 108 on 05/09/2024) Protein calorie malnutrition/hypoalbuminemia Acute on chronic anemia leukocytosis Electrolyte derangement (hyponatremia, hypochloremia) Endometrial cancer status post chemo and immunotherapy, POA Leukocytosis Chronic problem list: diabetes, hypotension, anemia, pericarditis, neuropathy, constipation INTERVAL HISTORY: Pt is sleeping but easily arousable. Hemodynamically stable she is off pressors today. Continues on antibiotic regimen cefepim, doxycycline, and Flagyl. She was hemodynamically stable with a blood pressure 137/73 heart rate of 107 respiratory rate of 14 saturating 98% on room air and afebrile. urine output 5.4 L in the last 24 hours with a balance of-3.8 L. she diuresing well. WBCs 4.2, H&H is trending down 7.6/22.8 platelet count of 81 K. chemistries morning with sodium of 140 potassium of 2.7 corrected on repeat was 3.4 BUN six total calcium of 8.4 magnesium of 1.5 covered per Stl Lactoferrin Callie Positive and Stl norovirus detected on GI PCR. Culture + for Ecoli in the urine. Pansensitive. Pending chest XR in am. Stable for downgrade we will continue to follow. 06/06 patient was seen and examined by bedside somnolent but is easily arousable. Patient has remained hemodynamically stable. Remains on3 L nasal cannula. Patient to continue on doxy and cefepime, at this time we will discontinue patient's cefepime. Patient's potassium to continue being replaced per protoc ol. As per primary nurse no acute events to be reported. At time of visit patient denies chest pain or shortness of breadth. Denies nausea vomiting or abdominal pain. REVIEW OF SYSTEMS: 12 point ROS reviewed with patient. Pertinent positives mentioned above. Otherwise negative. PHYSICAL EXAM: GENERAL: Alert, weak, awake oriented x 3 HEENT: EOMI, Sclera non icteric, moist mucosa NECK: Supple, no JVD, trachea midline LUNGS: coarse Ronchi breath sounds bilaterally. No wheezes HEART: Regular rate and rhythm. Normal S1 and S2, without murmurs ABD: Abdomen soft, nontender. Bowel sounds present EXT: No clubbing cyanosis or edema NEURO: Alert and oriented X3, follows commands Vital Signs (last 8hr) Date Time Temp Pulse Resp B/P (MAP) Pulse Ox O2 Delivery O2 Flow Rate FiO2 06/06/24 12:00 99.0 106 16 129/70 96 Nasal Cannula 2.0 LABS: Hematology Labs: Test 06/06/24 15:03 06/06/24 04:00 Range/Units White Blood Count 3.4 L 4.8-10.8 K/uL Red Blood Count 2.64 L 4.00-5.50 MIL/uL Hemoglobin 7.8 L 12.0-16.0 g/dL Hematocrit 24.1 L 36-48 % Mean Corpuscular Volume 91.3 79-99 fL Mean Corpuscular Hemoglobin 29.5 27.0-33.0 pg Mean Corpuscular Hemoglobin Concent 32.4 32.0-36.0 g/dL Red Cell Distribution Width 15.8 H 11.0-15.5 % Platelet Count 91 L 130-400 K/uL Mean Platelet Volume 8.8 7.5-10.5 fL Nucleated Red Blood Cells 0.0 0.0-0.19 % Immature Granulocyte % (Auto) 0.3 0-1 % Neutrophils (%) (Auto) 64.7 40.0-77.0 % Lymphocytes (%) (Auto) 22.4 21.0-51.0 % Monocytes (%) (Auto) 8.5 3.0-13.0 % Eosinophils (%) (Auto) 3.2 0.0-8.0 % Basophils (%) (Auto) 0.9 0.0-5.0 % Neutrophils # (Auto) 2.2 1.8-7.7 K/uL Lymphocytes # (Auto) 0.8 L 1.0-4.8 K/uL Monocytes # (Auto) 0.3 0.1-1.0 K/uL Eosinophils # (Auto) 0.11 0.00-0.70 K/uL Basophils # (Auto) 0.03 0.00-0.20 K/uL Absolute Immature Granulocyte (auto 0.01 0-1 K/uL Chemistry Labs: Test 06/06/24 15:25 06/06/24 04:00 06/05/24 09:00 06/05/24 03:51 Range/Units Whole Blood Glucose 63 L 70-110 MG/DL Sodium Level 140 136-145 mmol/L Potassium Level 3.0 *L 3.5-5.1 mmol/L Chloride Level 102 101-111 mmol/L Carbon Dioxide Level 33 H 21-32 mmol/L Blood Urea Nitrogen 3 L 7-18 mg/dL Creatinine 0.7 0.5-1.0 mg/dL Glomerular Filtration Rate Calc 107 >90 mL/min Random Glucose 70 70-105 mg/dL Total Calcium 8.8 8.5-10.1 mg/dL Magnesium Level 1.80 1.80-2.40 mg/dL Cortisol AM Sample 11.1 6.2-19.4 ug/dL Total Bilirubin 0.9 0.2-1.0 mg/dL Aspartate Amino Transf (AST/SGOT) 225 H 10-37 U/L Alanine Aminotransferase (ALT/SGPT) 119 H 12-78 U/L Alkaline Phosphatase 117 50-136 U/L Total Protein 5.7 L 6.0-8.3 g/dL Albumin 2.2 L 3.5-5.0 g/dL DIAGNOSTICS / RADIOLOGY RESULTS: na PLAN Continue doxycycline 100 mg b.i.d. Continue cefepime1 g every 8 hours Discontinue Flagyl Continue replacing electrolytes per protocol Rest of the care per primary team NEURO: Minimize central acting medications as possible. Maintain fall precautions, adequate lighting during the day PULMONARY: Supplemental 02 as needed. Maintain aspiration precautions at all times CARDIOVASCULAR: Follow hemodynamics. Vital signs per facility protocol GI & NUTRITION: Continue with nutritional support. Continue stool softeners and laxatives as needed. KIDNEYS & ELECTROLYTES: Strict monitoring of intake, output and overall fluid balance. Avoid nephrotoxic medications to the extent possible. Medications to be dosed according to renal function. Monitor electrolytes and replace as needed ENDOCRINE: Maintain blood glucose between 100-180 at all times. Hypoglycemia protocol in place INFECTIOUS DISEASE: Trend temperature, WBC and procalcitonin level Follow rolan marioncalate antibiotics as soon as possible. Panculture if new onset fever ONCOLOGY/HEMATOLOGY/COAGULATION: Monitor for s/s of bleeding Monitor hemoglobin, coagulation studies as needed SKIN: Pressure ulcer prevention per facility protocol Specialty mattress ORTHO/REHAB: Continue PT/OT Prophylaxis: Continue GI and DVT prophylaxis Code Status: Full Resuscitation Disposition: Per primary team Other: Case discussed with supervising physician plan of care agreed upon BRONWYN MASTERS Jun 06, 2024 16:31
[2024-06-06 22:09] LABS: HEMATOCRIT 23.6 % (36-48); MEAN CORPUSCULAR HEMOGLOBIN 29.5 pg (27.0-33.0); MEAN CORPUSCULAR HGB CONC 32.2 g/dL (32.0-36.0); MEAN CORPUSCULAR VOLUME 91.5 fL (79-99); RED BLOOD CELL COUNT(AUTO) 2.58 MIL/uL (4.00-5.50); RED CELL DISTRIBUTION WIDTH 15.8 % (11.0-15.5); WHITE BLOOD COUNT (AUTO) 3.4 K/uL (4.8-10.8)
[2024-06-07] VITALS (8 sets, daily range): BP systolic 93–123; BP diastolic 50–72; PULSE 98–108; RESP 16–20; TEMP 97.5–98.3; O2SAT 84–100
[2024-06-07 05:07] LABS: BASOPHILS # (AUTO) 0.02 K/uL (0.00-0.20); BASOPHILS % (AUTO) 0.7 % (0.0-5.0); EOSINOPHILS # (AUTO) 0.11 K/uL (0.00-0.70); EOSINOPHILS % (AUTO) 3.7 % (0.0-8.0); HEMATOCRIT 23.2 % (36-48); IMMATURE GRANULOCYTE ABSOLUTE 0.01 K/uL (0-1); LYMPHOCYTES % (AUTO) 32.4 % (21.0-51.0); MEAN CORPUSCULAR HEMOGLOBIN 29.2 pg (27.0-33.0); MEAN CORPUSCULAR HGB CONC 31.5 g/dL (32.0-36.0); MEAN CORPUSCULAR VOLUME 92.8 fL (79-99); MONOCYTES # (AUTO) 0.3 K/uL (0.1-1.0); NEUTROPHILS # (AUTO) 1.6 K/uL (1.8-7.7); NEUTROPHILS % (AUTO) 53.9 % (40.0-77.0); PLATELET COUNT (AUTO) 97 K/uL (130-400); RED CELL DISTRIBUTION WIDTH 15.6 % (11.0-15.5)
[2024-06-07 05:18] LABS: BILIRUBIN,TOTAL 0.9 mg/dL (0.2-1.0); CREATININE 0.6 mg/dL (0.5-1.0); MAGNESIUM 1.4 mg/dL (1.80-2.40); POTASSIUM 3.5 mmol/L (3.5-5.1); TOTAL PROTEIN, SERUM 5.4 g/dL (6.0-8.3)
[2024-06-07 05:38] LABS: BAND NEUTROPHILS % (MANUAL) 3 % (0-2); BASOPHILS % (MANUAL) 1 % (0-2); EOSINOPHILS % (MANUAL) 1 % (1-6); LYMPHOCYTES % (MANUAL) 24 % (22-44); MAN.DIFF COMMENT-IMPRESSION MANUAL DIFFERENTIAL; MONOCYTES % (MANUAL) 6 % (2-9); SEGMENTED NEUTROPHILS % 65 % (40-70); TOTAL CELLS COUNTED 100
[2024-06-07 05:39] LABS: PLATELET MORPHOLOGY COMMENT DECREASED
--- NOTE | 2024-06-07 09:20 | NUR ---
PATIENT COMPLAINT PATIENT COMPLAINING OF CONSISTENT NAUSEA AND VOMITING. REPORTS ZOFRAN GIVEN IS NOT WORKING FOR HER. CONTACTED DR. INIGUEZ AND NOTIFIED OF PATIENT'S COMPLAINTS. TORB FOR PHENERGAN 12.5MG IM Q8HRS PRN. ORDERS PLACED AND CARRIED OUT. WILL CONTINUE TO MONITOR.
[2024-06-07] MEDS: PROMETHAZINE HCL 25 MG/ML 1ML AMPULE IM PRN (10:23)
--- NOTE | 2024-06-07 10:37 | PN ---
NEPHROLOGY PROGRESS NOTE Date/Time Patient Seen: Jun 07, 2024 Reason for Consultation: 10:36 SUBJECTIVE: This is a 49-year-old female with past medical history of diabetes, hypotension, anemia, pericarditis, neuropathy, constipation, endometrial cancer status post chemotherapy and immunotherapy She was brought by EMS to the ED for complaints of generalized body weakness and loss of appetite for two days. Patient was having nausea and vomiting started today she has approximately 4 episodes of bilious vomitus she said. Reportedly patient was hypoxic ,tachycardic and hypotensive per EMS . Chest x-ray result revealed mild bilateral pulmonary infiltrates are seen may be related to mild pulmonary vascular congestion with possible superimposed pneumonitis. While in the ER patient received fluid resuscitation of LR 30 mL per kg over 3 hours, patient was given Rocephin 1 g and azithromycin IV , Zofran 4 mg IV and patient was started on Levophed drip. We will admit patient to ICU for further medical management. She was noted with elevated BUN/creatinine We have been consulted for renal failure. Renal function electrolytes are stable. Abdominal ultrasound showed no hydronephrosis. Simple right renal cyst measuring 2 cm. She continues to complain of nausea, she has been started on Phenergan She was seen in the medical floor, in no acute distress Family at the bedside Prognosis remains guarded REVIEW OF SYSTEMS: GENERAL: Negative for any nausea, vomiting, fevers, chills, or weight loss. NEUROLOGIC: Negative for any blurry vision, blind spots, double vision, facial asymmetry, dysphagia, dysarthria, hemiparesis, hemisensory deficits, vertigo, ataxia. HEENT: Negative for any head trauma, neck trauma, neck stiffness, photophobia, phonophobia, sinusitis, rhinitis. CARDIAC: Negative for any chest pain, dyspnea on exertion, paroxysmal nocturnal dyspnea, peripheral edema. PULMONARY: Negative for any shortness of breath, wheezing, COPD, or TB exposure. GASTROINTESTINAL: Negative for any abdominal pain, nausea, vomiting, bright red blood per rectum, melena. GENITOURINARY: Negative for any dysuria, hematuria, incontinence. INTEGUMENTARY: Negative for any rashes, cuts, insect bites. RHEUMATOLOGIC: Negative for any joint pains, photosensitive rashes, history of vasculitis or kidney problems. HEMATOLOGIC: Negative for any abnormal bruising, frequent infections or bleeding. PHYSICAL EXAM: GENERAL: Alert and oriented x 3. No acute distress. Well-nourished. EYES: EOMI. Anicteric. HENT: Moist mucous membranes. No scleral icterus. No cervical lymphadenopathy. LUNGS: Clear to auscultation bilaterally. No accessory muscle use. CARDIOVASCULAR: Regular rate and rhythm. No murmur. No JVD. ABDOMEN: Soft, non-tender and non-distended. No palpable masses. EXTREMITIES: No edema. Non-tender.?SKIN: No rashes or lesions. Warm. NEUROLOGIC: No focal neurological deficits. CN II-XII grossly intact, but not individually tested. PSYCHIATRIC: Cooperative. Appropriate mood and affect. LABORATORY: [ ] Hematology Labs: Test 06/07/24 04:28 Range/Units White Blood Count 3.0 L 4.8-10.8 K/uL Red Blood Count 2.50 L 4.00-5.50 MIL/uL Hemoglobin 7.3 L 12.0-16.0 g/dL Hematocrit 23.2 L 36-48 % Mean Corpuscular Volume 92.8 79-99 fL Mean Corpuscular Hemoglobin 29.2 27.0-33.0 pg Mean Corpuscular Hemoglobin Concent 31.5 L 32.0-36.0 g/dL Red Cell Distribution Width 15.6 H 11.0-15.5 % Platelet Count 97 L 130-400 K/uL Mean Platelet Volume 9.0 7.5-10.5 fL Immature Granulocyte % (Auto) 0.3 0-1 % Neutrophils (%) (Auto) 53.9 40.0-77.0 % Lymphocytes (%) (Auto) 32.4 21.0-51.0 % Monocytes (%) (Auto) 9.0 3.0-13.0 % Eosinophils (%) (Auto) 3.7 0.0-8.0 % Basophils (%) (Auto) 0.7 0.0-5.0 % Neutrophils # (Auto) 1.6 L 1.8-7.7 K/uL Lymphocytes # (Auto) 1.0 1.0-4.8 K/uL Monocytes # (Auto) 0.3 0.1-1.0 K/uL Eosinophils # (Auto) 0.11 0.00-0.70 K/uL Basophils # (Auto) 0.02 0.00-0.20 K/uL Absolute Immature Granulocyte (auto 0.01 0-1 K/uL Segmented Neutrophils % 65 40-70 % Band Neutrophils % 3 H 0-2 % Lymphocytes % (Manual) 24 22-44 % Monocytes % (Manual) 6 2-9 % Eosinophils % (Manual) 1 1-6 % Basophils % (Manual) 1 0-2 % Nucleated Red Blood Cells 0.0 0.0-0.19 % Differential Comment MANUAL DIFFERENTIAL White Cell Morphology Comment Platelet Morphology Comment DECREASED Red Blood Cell Morphology ANISO 1+ Chemistry Labs: Test 06/07/24 05:32 06/07/24 04:28 Range/Units Whole Blood Glucose 60 L 70-110 MG/DL Sodium Level 144 136-145 mmol/L Potassium Level 3.5 3.5-5.1 mmol/L Chloride Level 106 101-111 mmol/L Carbon Dioxide Level 35 H 21-32 mmol/L Blood Urea Nitrogen 2 L 7-18 mg/dL Creatinine 0.6 0.5-1.0 mg/dL Glomerular Filtration Rate Calc 111 >90 mL/min Random Glucose 66 L 70-105 mg/dL Total Calcium 8.6 8.5-10.1 mg/dL Magnesium Level 1.40 L 1.80-2.40 mg/dL Total Bilirubin 0.9 0.2-1.0 mg/dL Aspartate Amino Transf (AST/SGOT) 76 H 10-37 U/L Alanine Aminotransferase (ALT/SGPT) 58 12-78 U/L Alkaline Phosphatase 100 50-136 U/L Total Protein 5.4 L 6.0-8.3 g/dL Albumin 2.0 L 3.5-5.0 g/dL DIAGNOSTICS / RADIOLOGY: REASON: hypoxic resp failure ORDERING PHYSICIAN: JAMES DURÁN PROCEDURE: CXR1VW - CHEST 1VW PORTABLE CHEST RADIOGRAPH INDICATION: hypoxic resp failure COMPARISON: 06/04/2024 FINDINGS/IMPRESSION: talent acquisition coordinator leads overlie the field of view. Stable left-sided Port-A-Cath. Stable heart size without pulmonary vascular congestion. Favorable mild to moderate decrease in bilateral lung airspace disease and also decrease in size of small left pleural effusion, without pneumothorax. Continued follow-up is recommended in order to ensure complete resolution. DICTATED BY: LIZZY LONDONO MD DATE: 06/06/24 1228 REASON: SOB ORDERING PHYSICIAN: MARLENE INIGUEZ MD PROCEDURE: CXR1VW - CHEST 1VW CHEST 1VW HISTORY: Shortness of breath COMPARISON: 06/03/2024 FINDINGS: A frontal projection of the chest was obtained. Bilateral pulmonary infiltrates and pleural effusions are seen with left more than right. The heart is borderline enlarged. Port-A-Cath is seen entering from the left. Degenerative changes are seen. No evidence of aortic calcification is seen. IMPRESSION: 1. Bilateral pulmonary infiltrates and pleural effusions with left more than right. DICTATED BY: EMILY WETZEL MD DATE: 06/04/24 1403 REASON: N/V/D ORDERING PHYSICIAN: ALCIDES NGUYEN MD PROCEDURE: ABDOMEN - US ABDOMINAL COMPLETE US ABDOMINAL COMPLETE HISTORY: Nausea, vomiting and diarrhea COMPARISON: None TECHNIQUE: Multiple transverse and longitudinal ultrasound images of the abdomen were obtained. FINDINGS: Abdominal aorta and inferior vena cava are unremarkable. The visualized portion of the pancreas is within normal limits. There are bilateral pleural effusions. Liver measured 11 cm. Gallstones are seen in the gallbladder. Common duct measures 2.6 mm. No evidence of gallbladder wall thickening is seen. Both kidneys are seen. Right kidney measures 11 x 5 x 4 cm. Left kidney measures 11 x 5 x 5 cm. There is right renal cyst measuring 2 cm. No hydronephrosis is seen of the both kidneys. The spleen is grossly unremarkable. IMPRESSION: 1. No gallstone or ductal dilatation is seen. 2. No hydronephrosis is seen. Simple right renal cyst measuring 2 cm. DICTATED BY: EMILY WETZEL MD DATE: 06/04/24 0958 REASON: Assess for pericardial effusion ORDERING PHYSICIAN: RICH RUFF MD PROCEDURE: ECHO FU LD - ECHO 2-D F/U-LTD APPROVED REPORT EXAM: LIMITED Two-dimensional and M-mode echocardiogram. INDICATION ICD: pericardial effusion 2D Dimensions IVC diam 1.9 cm Left Ventricle The left ventricle is normal in structure and function. The Ejection Fraction is >55%. Right Ventricle Right ventricle is normal size. The right ventricular systolic function is normal. Mitral Valve Mitral valve opens well. No mitral valve prolapse. Pericardium Small circumferential pericardial effusion, 0.9 cm in maximum dimension. No echo indications of pericardial tamponade. Other Information Quality : Limited/Follow-up Rhythm : NSR Conclusion Small circumferential pericardial effusion, 0.9 cm in maximum dimension. No echo indications of pericardial tamponade. Grossly normal LV and RV systolic function. DICTATED BY: JUSTYNA SUAREZ DO DATE: 06/03/24937 REASON: SHORTNESS OF BREATH ORDERING PHYSICIAN: FLORES POSADA PROCEDURE: CXR1VW - CHEST 1VW CHEST 1VW HISTORY: Shortness of breath COMPARISON: 06/02/2024 FINDINGS: A frontal projection of the chest was obtained. There are bilateral pulmonary infiltrates suggestive of pulmonary vascular congestion with possible superimposed pneumonitis. The heart is borderline enlarged. Port-A-Cath is seen entering from the left. No evidence of aortic calcification is seen. IMPRESSION: 1. Bilateral pulmonary infiltrates are seen suggestive of pulmonary vascular congestion with possible superimposed pneumonitis. DICTATED BY: EMILY WETZEL MD DATE: 06/03/24821 REASON: SEPSIS ORDERING PHYSICIAN: MAGGIE COLLADO MD PROCEDURE: CXR1VW - CHEST 1VW CHEST 1VW HISTORY: Sepsis COMPARISON: None FINDINGS: A frontal projection of the chest was obtained. Mild bilateral pulmonary infiltrates are seen may be related to mild pulmonary vascular congestion with possible superimposed pneumonitis. The heart is borderline enlarged. Port-A-Cath is seen entering from the left. Degenerative changes are seen. No evidence of aortic calcification is seen. IMPRESSION: 1. Mild bilateral pulmonary infiltrates are seen may be related to mild pulmonary vascular congestion with possible superimposed pneumonitis. DICTATED BY: EMILY WETZEL MD DATE: 06/02/24 1610 ASSESSMENT: Acute kidney injury Sepsis with septic shock Acute respiratory failure Severe dehydration/ hypovolemia Acute nausea, vomiting, diarrhea Frailty/debility/general body weakness Failure to thrive Protein calorie malnutrition/hypoalbuminemia Acute on chronic anemia leukocytosis Electrolyte derangement (hyponatremia, hypochloremia) Endometrial cancer status post chemo and immunotherapy Leukocytosis Diabetes Hypotension Anemia History of pericarditis Neuropathy Constipation PLAN: Labs, diagnostic, radiologic exams reviewed and interpreted by myself and supervising physician. We have reviewed external records in detail Require close monitoring of renal function and electrolytes Order CBC, CMP,and electrolytes in am Continue with antibiotics BiPAP as necessary, for respiratory distress Monitor blood pressure adjust medication doses as needed Avoid hypotensive episodes May use Dilaudid 0.5 mg IV every 6 hours as needed for severe pain Monitor blood sugars Strict intake, output, and daily weight should be monitored Please renally adjust medications Avoid nephrotoxic and nonsteroidal drugs Avoid contrast if possible Will continue to monitor renal function, anemia, electrolytes Treatment plan discussed with patient Questions were answered We have discussed with the other team physicians in detail about the care plan We will continue to monitor the patient closely ATTESTATION BY PHYSICIAN I have seen and examined the patient. I reviewed the documentation, medical decision making, and treatment plan as noted by the mid-level provider above. I agree with the findings and plan of care. ALCIDES NGUYEN MD, [facility] Jun 07, 2024 10:37
[2024-06-07] MEDS ORDERED: MAGNESIUM 2GM PREMIX 50ML 50 ML IV SCH (12:30)
[2024-06-07] MEDS: PoTASSium chloRIDE 20MEQ/100ML 100 ML IV ONE (13:47)
--- NOTE | 2024-06-07 15:10 | PN ---
[facility] PROGRESS NOTE Date of Service: Jun 07, 2024 Time of Service: 15:07 SUBJECTIVE: 06/03 patient seen at bedside, no acute events overnight. She is on a low dose of pressors, we will wean as able. WBC improved from 12.4 down to 11.2, hemoglobin improved from 9.7 up to 9.9, creatinine improved from 1.5 down to 1.3, CRP elevated at 197.6, remainder of her labs are relatively unremarkable. 06/04 patient is seen and examined bedside, case discussed with the RN, the patient with generalized body pain, she stated that she takes tramadol at home, requesting some pain medication. During my visit she still mildly tachycardic with a heart rate ranging between 120-130, remains on Shon-Synephrine for BP support. She is getting broad-spectrum IV antibiotics, on 4 L via nasal cannula. CBC with a hemoglobin 8.2, hematocrit 26.7, platelet count of 88. CMP with sodium 136, potassium 3.2, bicarbonate of 16, magnesium 1.7. Earlier this morning blood glucose 21. We will do stat CBC, we will replace electrolytes IV per protocol, follow a stat ABG as well. 06/05 patient is seen and examined at bedside, case discussed with the RN. During my visit the patient remains in bed, she looks more comfortable, less in distress compared to yesterday, remains on supplemental oxygen via nasal cannula 4 L, saturating 98%. Chest x-ray done yesterday showed bilateral pulmonary infiltrates and pleural effusions with left more than right, a dose of furosemide 40 mg IV x1 was given. So far urine output has been over 4 L in the last 24 hours. Patient denied chest pain, she feels less short of breath. Currently she is off Shon-Synephrine. BP 118/57. Hemoglobin 7.6, hematocrit 23.8. Repeat ABG yesterday pH 7.4, bicarb 22. 06/06 patient is seen and examined at bedside, case discussed with the RN, no acute events overnight, patient downgraded from the ICU to the medical floor, she feels better, alert oriented x3, BP 107/61, heart rate of 117, saturating 96% on 3 L nasal cannula. No chest pain, no nausea, no vomiting. Hemoglobin today at 7.2. 06/07 patient is seen and examined at bedside, case discussed with the RN, no acute events overnight, patient comfortably in bed, BP 93/50, heart rate of 104, afebrile, saturating 92-94% on 2 L nasal cannula. CBC with a hemoglobin 7.3, hematocrit 23.2, magnesium level of 1.4, potassium 3.5. Chest x-ray shows [id number] decreasing bilateral lung airspace disease also decrease in size of small left pleural effusion pneumothorax. REVIEW OF SYSTEMS 12 point review of systems negative unless noted in HPI PHYSICAL EXAM GENERAL APPEARANCE: Patient appears generally weak and pale looking The patient is awake, alert, and oriented, in no acute cardiopulmonary distress NEUROLOGICAL: Cranial nerves II-XII grossly intact. Motor is 4/4 in bilateral upper and lower extremities proximal to distal. No sensory deficits. HEENT: Face is symmetric. Pupils are equal and reactive. Extraocular movements are intact. NECK: Supple. No JVD. No thyromegaly. No submental, submandibular, pre- /postauricular, occipital or supraclavicular lymphadenopathy. CHEST: Normal chest expansion. No Telemetry. LUNGS: Absence of any rales, rhonchi or any wheezing. CARDIOVASCULAR: Tachycardic Regular. S1 and S2 normal. No appreciable rubs, murmurs or gallops. ABDOMEN: Soft, nontender, and nondistended. There is no rebound, voluntary guarding, or rigidity. : Deferred. No Ribeiro. EXTREMITIES: Non-edematous and not cyanotic. No clubbing. Good capillary refill. SKIN: No skin breakdown. Vital Signs (last 8hr) Date Time Temp Pulse Resp B/P (MAP) Pulse Ox O2 Delivery O2 Flow Rate FiO2 06/07/24 12:00 98.1 104 16 93/50 92 Room Air 21 06/07/24 08:20 94 Room Air* 0 21 06/07/24 08:00 97.5 105 16 101/53 91 Room Air 21 LABS: Laboratory: Test 06/07/24 10:57 06/07/24 04:28 Range/Units Whole Blood Glucose 71 70-110 MG/DL White Blood Count 3.0 L 4.8-10.8 K/uL Red Blood Count 2.50 L 4.00-5.50 MIL/uL Hemoglobin 7.3 L 12.0-16.0 g/dL Hematocrit 23.2 L 36-48 % Mean Corpuscular Volume 92.8 79-99 fL Mean Corpuscular Hemoglobin 29.2 27.0-33.0 pg Mean Corpuscular Hemoglobin Concent 31.5 L 32.0-36.0 g/dL Red Cell Distribution Width 15.6 H 11.0-15.5 % Platelet Count 97 L 130-400 K/uL Mean Platelet Volume 9.0 7.5-10.5 fL Immature Granulocyte % (Auto) 0.3 0-1 % Neutrophils (%) (Auto) 53.9 40.0-77.0 % Lymphocytes (%) (Auto) 32.4 21.0-51.0 % Monocytes (%) (Auto) 9.0 3.0-13.0 % Eosinophils (%) (Auto) 3.7 0.0-8.0 % Basophils (%) (Auto) 0.7 0.0-5.0 % Neutrophils # (Auto) 1.6 L 1.8-7.7 K/uL Lymphocytes # (Auto) 1.0 1.0-4.8 K/uL Monocytes # (Auto) 0.3 0.1-1.0 K/uL Eosinophils # (Auto) 0.11 0.00-0.70 K/uL Basophils # (Auto) 0.02 0.00-0.20 K/uL Absolute Immature Granulocyte (auto 0.01 0-1 K/uL Segmented Neutrophils % 65 40-70 % Band Neutrophils % 3 H 0-2 % Lymphocytes % (Manual) 24 22-44 % Monocytes % (Manual) 6 2-9 % Eosinophils % (Manual) 1 1-6 % Basophils % (Manual) 1 0-2 % Nucleated Red Blood Cells 0.0 0.0-0.19 % Differential Comment MANUAL DIFFERENTIAL White Cell Morphology Comment Platelet Morphology Comment DECREASED Red Blood Cell Morphology ANISO 1+ Sodium Level 144 136-145 mmol/L Potassium Level 3.5 3.5-5.1 mmol/L Chloride Level 106 101-111 mmol/L Carbon Dioxide Level 35 H 21-32 mmol/L Blood Urea Nitrogen 2 L 7-18 mg/dL Creatinine 0.6 0.5-1.0 mg/dL Glomerular Filtration Rate Calc 111 >90 mL/min Random Glucose 66 L 70-105 mg/dL Total Calcium 8.6 8.5-10.1 mg/dL Magnesium Level 1.40 L 1.80-2.40 mg/dL Total Bilirubin 0.9 0.2-1.0 mg/dL Aspartate Amino Transf (AST/SGOT) 76 H 10-37 U/L Alanine Aminotransferase (ALT/SGPT) 58 12-78 U/L Alkaline Phosphatase 100 50-136 U/L Total Protein 5.4 L 6.0-8.3 g/dL Albumin 2.0 L 3.5-5.0 g/dL Current Medications Medications (Trade) Dose Ordered Sig/Mina Route PRN Reason Start Time Stop Time Status Last Admin Dose Admin Acetaminophen (TYLenol 325MG TAB) 650 mg Q4H PRN PO MILD PAIN (1-3) 06/02/24 19:30 07/02/24 19:29 06/04/24 20:49 650 MG Acetaminophen (TYLenol 325MG TAB) 650 mg Q6H PRN PO TEMPERATURE GREATER THAN 101.5 06/02/24 19:30 07/02/24 19:29 Albumin Human 250 ml @ 100 mls/hr AD IV 06/03/24 01:00 06/08/24 00:59 06/03/24 01:15 100 MLS/HR Azithromycin 250 ml @ 250 mls/hr Q24H IV 06/02/24 19:30 06/02/24 19:57 DC Azithromycin 250 ml @ 250 mls/hr Q24H IVPB 06/02/24 18:00 06/03/24 06:48 DC 06/02/24 18:18 250 MLS/HR Cefepime HCl (MAXipime 2 gm vial) 2 gm Q24H IVPB 06/03/24 07:00 06/13/24 06:59 06/07/24 06:00 2 GM Ceftriaxone Sodium 1 gm/ Sodium Chloride 50 ml @ 100 mls/hr Q24H IV 06/02/24 19:30 06/02/24 19:36 DC Ceftriaxone Sodium (ROCEphine 1G INJ) 1 gm Q24H IVPB 06/02/24 20:00 06/03/24 00:08 DC Ceftriaxone Sodium (Rocephin 2gm Inj) 2 gm Q24H IVPB 06/03/24 17:30 06/03/24 06:50 DC Colchicine (COLCHicine 0.6mg TAB) 0.6 mg DAILY PO 06/03/24 09:00 07/03/24 08:59 06/07/24 09:17 0.6 MG Dextrose (D50w) 50 ml AD PRN IV HYPOGLYCEMIA PROTOCOL 06/06/24 05:30 07/06/24 05:29 06/06/24 05:34 50 ML Doxycycline Hyclate 250 ml @ 125 mls/hr Q12H IV 06/03/24 14:30 06/13/24 14:29 06/07/24 02:22 125 MLS/HR Famotidine (Pepcid 20mg Vial) 20 mg DAILY IV 06/03/24 09:00 06/07/24 09:40 DC 06/06/24 09:24 20 MG Furosemide (LASix 40MG VIAL) 40 mg ONCE STAT IV 06/04/24 14:01 06/04/24 14:03 DC 06/04/24 14:25 40 MG Gabapentin (NEURontin 100 mg CAP) 100 mg BID PO 06/03/24 09:00 07/03/24 08:59 06/07/24 09:17 100 MG Glucagon (Glucagon 1mg Kit) 1 mg AD PRN IM HYPOGLYCEMIA PROTOCOL 06/06/24 05:30 07/06/24 05:29 Heparin Sodium (Porcine) (HEParin 5,000 UNIT VIAL) 5,000 unit Q12H SQ 06/03/24 00:30 06/04/24 19:33 DC 06/04/24 00:53 5,000 UNIT Home Med (Home Medication) (Folic Acid 1 TAB) DAILY PO 06/03/24 09:00 07/03/24 08:59 06/07/24 09:16 1 EACH Home Med (Home Medication) CYANOCOBALAMIN (VITAMIN B-12) 1,... DAILY PO 06/06/24 09:00 07/06/24 08:59 06/07/24 09:16 1 EACH Hydromorphone HCl (DiLAUDid 0.5MG INJ) 0.5 mg Q6H PRN IVP SEVERE PAIN (7-10) 06/04/24 11:00 06/04/24 11:01 DC Loperamide HCl (Immodium Liquid) 2 mg AD PRN PO AFTER EACH LOOSE STOOL 06/03/24 12:30 07/03/24 12:29 06/03/24 14:27 2 MG Magnesium Sulfate 50 ml @ 0 mls/hr PROTOCOL IV 06/07/24 12:30 07/07/24 12:29 Magnesium Sulfate 50 ml @ 0 mls/hr PROTOCOL PRN IV OTHER [SEE ORDER COMMENTS] 06/02/24 20:00 06/07/24 12:21 DC 06/07/24 09:52 25 MLS/HR Metoprolol Tartrate (loprESSOR) 2.5 mg ONCE IV 06/04/24 18:00 06/04/24 23:00 DC 06/04/24 18:25 2.5 MG Metronidazole/ Sodium Chloride (flaGYL) 500 mg Q8H IV 06/03/24 14:30 06/06/24 16:29 DC 06/06/24 05:01 500 MG Morphine Sulfate (morPHINE 2MG SYG) 2 mg Q4H PRN IVP SEVERE PAIN (7-10) 06/04/24 10:30 06/04/24 11:00 DC Norepinephrine 250 ml @ 0 mls/hr PROTOCOL IV 06/02/24 16:00 06/03/24 00:19 DC 06/02/24 22:52 48 MLS/HR Norepinephrine Bitartrate (Norepineph 16 Mg/250ml NS Premix) 0.1 PROTOCOL IV 06/03/24 00:30 07/03/24 00:29 06/03/24 00:40 16 MG Ondansetron HCl (zoFRAN 4MG INJ) 4 mg Q6H PRN IV NAUSEA/VOMITING 06/02/24 19:30 07/02/24 19:29 06/07/24 06:01 4 MG Pantoprazole Sodium (PROTonix 40MG INJ) 40 mg BID IVP 06/05/24 21:00 07/05/24 20:59 06/07/24 09:42 40 MG Pharmacy Profile Note (Pharmacy Communication) 1 each ONCE MISC 06/03/24 13:00 06/03/24 13:02 DC Phenylephrine HCl 10 mg/Sodium Chloride 250 ml @ 0 mls/hr PROTOCOL IV 06/02/24 19:30 06/03/24 00:42 DC 06/03/24 00:24 278 MLS/HR Phenylephrine HCl 100 mg/Sodium Chloride 250 ml @ 0 mls/hr PROTOCOL IV 06/03/24 00:30 07/03/24 00:29 06/04/24 07:17 15.66 MLS/HR Potassium Chloride 100 ml @ 100 mls/hr AD PRN IV POTASSIUM PROTOCOL 06/02/24 20:00 07/02/24 19:59 06/06/24 05:02 100 MLS/HR Potassium Chloride (K-Dur/Klor-Con 20meq) 20 meq AD PRN PO POTASSIUM PROTOCOL 06/02/24 20:00 07/02/24 19:59 06/07/24 06:01 20 MEQ Potassium Chloride (KCl 10% Elixir 20meq/15ml) 20 meq AD PRN PO POTASSIUM PROTOCOL 06/02/24 20:00 07/02/24 19:59 06/06/24 05:02 20 MEQ Promethazine HCl (Phenergan) 12.5 mg Q8H5 PRN IM NAUSEA/VOMITING 06/07/24 09:30 07/07/24 09:29 06/07/24 10:23 12.5 MG Sodium Bicarbonate (Sodium Bicarb 50meq 50ml Vial) 200 meq ONCE IV 06/04/24 16:30 06/04/24 21:30 DC 06/04/24 16:53 200 MEQ Sodium Chloride 1,000 ml @ 100 mls/hr Q10H IV 06/02/24 19:00 06/04/24 14:02 DC 06/03/24 23:33 100 MLS/HR Sodium Chloride 1,000 ml @ 100 mls/hr Q10H IV 06/02/24 19:30 06/02/24 19:57 DC 06/02/24 19:39 100 MLS/HR Tramadol HCl (UltRAM) 50 mg Q6H6 PRN PO PAIN LEVEL 4 TO 6 06/04/24 10:30 06/09/24 10:29 06/07/24 04:28 50 MG Vancomycin HCl (Vancomycin 750mg) 750 mg Q12H IVPB 06/03/24 21:00 06/03/24 14:06 DC Vancomycin HCl (Vancomycin Protocol) 1 each AD IV 06/03/24 07:00 06/03/24 14:06 DC Vitamin B Complex (Vitamin B-12) 1,000 mcg DAILY PO 06/03/24 09:00 06/04/24 10:51 DC 06/03/24 09:24 1,000 MCG Vitamin B Complex (Vitamin B-12) 1,000 mcg DAILY PO 06/04/24 14:00 06/05/24 09:55 DC DIAGNOSTICS / RADIOLOGY: [ ] ASSESSMENT: Acute respiratory failure without mechanical ventilation POA Septic shock requiring vasopressor POA Suspected community-acquired pneumonia vs pulmonary edema, POA UTI due to E coli, POA Dehydration POA Failure to thrive POA Acute kidney injury POA Protein calorie malnutrition POA Chronic anemia POA Endometrial cancer status post chemotherapy and immunotherapy POA Acute metabolic acidosis Acute pulmonary edema PLAN: Patient remains admitted to medical floor Continue the patient on air sampling and monitoring Continue supplemental oxygen via nasal cannula 2 L, to keep O2 sat greater than 92%, wean as tolerated. We will check for need of home oxygen upon discharge. Continue broad-spectrum antibiotics. Pulmonary input noted and appreciated. Follow repeat CBC today, transfuse as needed. Continue to replace electrolytes IV per protocol. Echocardiogram shows a small circumferential pericardial effusion, no indications for pericardial tamponade Continue Famotidine 20 mg bid for GI prophylaxis GI and DVT prophylaxis Prognosis is guarded Disposition: Discharge plan discussed with patient, she would like to be discharged home when medically stable. We will check for need of home oxygen. MARLENE INIGUEZ MD Jun 07, 2024 15:10
[2024-06-07 15:23] LABS: HEMATOCRIT 24.5 % (36-48); MEAN CORPUSCULAR HEMOGLOBIN 29.2 pg (27.0-33.0); MEAN CORPUSCULAR VOLUME 94.2 fL (79-99); RED BLOOD CELL COUNT(AUTO) 2.6 MIL/uL (4.00-5.50); RED CELL DISTRIBUTION WIDTH 15.6 % (11.0-15.5); WHITE BLOOD COUNT (AUTO) 2.9 K/uL (4.8-10.8)
--- NOTE | 2024-06-07 15:35 | PN ---
[facility] PROGRESS NOTE Date Patient Seen: Jun 07, 2024 Time of Visit: 1159 Supervising Physician: Dr. HATCH Primary Care Physician: Attending: Dariusz hospitalist team Outpatient Specialists: Inpatient Consults: BIS, critical Care team PROBLEM LIST: Sepsis with septic shock, POA requiring two pressors, resolved 2/2 Ecoli Acute complicated cystitis, POA Acute respiratory failure, POA Severe dehydration/ hypovolemia, POA Acute nausea, vomiting, diarrhea, POA Frailty/debility/general body weakness Failure to thrive, POA Acute kidney injury, POA, GFR 43 (GFR 108 on 05/09/2024) Protein calorie malnutrition/hypoalbuminemia Acute on chronic anemia leukocytosis Electrolyte derangement (hyponatremia, hypochloremia) Endometrial cancer status post chemo and immunotherapy, POA Leukocytosis Chronic problem list: diabetes, hypotension, anemia, pericarditis, neuropathy, constipation INTERVAL HISTORY: Pt is sleeping but easily arousable. Hemodynamically stable she is off pressors today. Continues on antibiotic regimen cefepim, doxycycline, and Flagyl. She was hemodynamically stable with a blood pressure 137/73 heart rate of 107 respiratory rate of 14 saturating 98% on room air and afebrile. urine output 5.4 L in the last 24 hours with a balance of-3.8 L. she diuresing well. WBCs 4.2, H&H is trending down 7.6/22.8 platelet count of 81 K. chemistries morning with sodium of 140 potassium of 2.7 corrected on repeat was 3.4 BUN six total calcium of 8.4 magnesium of 1.5 covered per Stl Lactoferrin Callie Positive and Stl norovirus detected on GI PCR. Culture + for Ecoli in the urine. Pansensitive. Pending chest XR in am. Stable for downgrade we will continue to follow. 06/06 patient was seen and examined by bedside somnolent but is easily arousable. Patient has remained hemodynamically stable. Remains on3 L nasal cannula. Patient to continue on doxy and cefepime, at this time we will discontinue patient's cefepime. Patient's potassium to continue being replaced per pro tocol. As per primary nurse no acute events to be reported. At time of visit patient denies chest pain or shortness of breadth. Denies nausea vomiting or abdominal pain. 06/07 patient was seen and examined by bedside no family present. At time of visit patient has no specific complaints. Patient remains on3 L nasal cannula appears to be tolerating well. Patient remains hemodynamically stable. No temperatures have been reported. As per primary nurse no acute events to be reported at this time. Patient is continue on IV antibiotics per ID recommendations. We will continue to monitor patient closely continue to ac tively titrate FiO2 as tolerated REVIEW OF SYSTEMS: 12 point ROS reviewed with patient. Pertinent positives mentioned above. Otherwise negative. PHYSICAL EXAM: GENERAL: Alert, weak, awake oriented x 3 HEENT: EOMI, Sclera non icteric, moist mucosa NECK: Supple, no JVD, trachea midline LUNGS: coarse Ronchi breath sounds bilaterally. No wheezes HEART: Regular rate and rhythm. Normal S1 and S2, without murmurs ABD: Abdomen soft, nontender. Bowel sounds present EXT: No clubbing cyanosis or edema NEURO: Alert and oriented X3, follows commands Vital Signs (last 8hr) Date Time Temp Pulse Resp B/P (MAP) Pulse Ox O2 Delivery O2 Flow Rate FiO2 06/07/24 12:00 98.1 104 16 93/50 92 Room Air 21 06/07/24 08:20 94 Room Air* 0 21 06/07/24 08:00 97.5 105 16 101/53 91 Room Air 21 LABS: Hematology Labs: Test 06/07/24 15:00 06/07/24 04:28 Range/Units White Blood Count 2.9 L 4.8-10.8 K/uL Red Blood Count 2.60 L 4.00-5.50 MIL/uL Hemoglobin 7.6 L 12.0-16.0 g/dL Hematocrit 24.5 L 36-48 % Mean Corpuscular Volume 94.2 79-99 fL Mean Corpuscular Hemoglobin 29.2 27.0-33.0 pg Mean Corpuscular Hemoglobin Concent 31.0 L 32.0-36.0 g/dL Red Cell Distribution Width 15.6 H 11.0-15.5 % Platelet Count 110 L 130-400 K/uL Mean Platelet Volume 9.1 7.5-10.5 fL Nucleated Red Blood Cells 0.0 0.0-0.19 % Immature Granulocyte % (Auto) 0.3 0-1 % Neutrophils (%) (Auto) 53.9 40.0-77.0 % Lymphocytes (%) (Auto) 32.4 21.0-51.0 % Monocytes (%) (Auto) 9.0 3.0-13.0 % Eosinophils (%) (Auto) 3.7 0.0-8.0 % Basophils (%) (Auto) 0.7 0.0-5.0 % Neutrophils # (Auto) 1.6 L 1.8-7.7 K/uL Lymphocytes # (Auto) 1.0 1.0-4.8 K/uL Monocytes # (Auto) 0.3 0.1-1.0 K/uL Eosinophils # (Auto) 0.11 0.00-0.70 K/uL Basophils # (Auto) 0.02 0.00-0.20 K/uL Absolute Immature Granulocyte (auto 0.01 0-1 K/uL Segmented Neutrophils % 65 40-70 % Band Neutrophils % 3 H 0-2 % Lymphocytes % (Manual) 24 22-44 % Monocytes % (Manual) 6 2-9 % Eosinophils % (Manual) 1 1-6 % Basophils % (Manual) 1 0-2 % Differential Comment MANUAL DIFFERENTIAL White Cell Morphology Comment Platelet Morphology Comment DECREASED Red Blood Cell Morphology ANISO 1+ Chemistry Labs: Test 06/07/24 10:57 06/07/24 04:28 Range/Units Whole Blood Glucose 71 70-110 MG/DL Sodium Level 144 136-145 mmol/L Potassium Level 3.5 3.5-5.1 mmol/L Chloride Level 106 101-111 mmol/L Carbon Dioxide Level 35 H 21-32 mmol/L Blood Urea Nitrogen 2 L 7-18 mg/dL Creatinine 0.6 0.5-1.0 mg/dL Glomerular Filtration Rate Calc 111 >90 mL/min Random Glucose 66 L 70-105 mg/dL Total Calcium 8.6 8.5-10.1 mg/dL Magnesium Level 1.40 L 1.80-2.40 mg/dL Total Bilirubin 0.9 0.2-1.0 mg/dL Aspartate Amino Transf (AST/SGOT) 76 H 10-37 U/L Alanine Aminotransferase (ALT/SGPT) 58 12-78 U/L Alkaline Phosphatase 100 50-136 U/L Total Protein 5.4 L 6.0-8.3 g/dL Albumin 2.0 L 3.5-5.0 g/dL DIAGNOSTICS / RADIOLOGY RESULTS: na PLAN Continue doxycycline 100 mg b.i.d. Continue cefepime1 g every 8 hours Continue replacing electrolytes per protocol Rest of the care per primary team NEURO: Minimize central acting medications as possible. Maintain fall precautions, adequate lighting during the day PULMONARY: Supplemental 02 as needed. Maintain aspiration precautions at all times CARDIOVASCULAR: Follow hemodynamics. Vital signs per facility protocol GI & NUTRITION: Continue with nutritional support. Continue stool softeners and laxatives as needed. KIDNEYS & ELECTROLYTES: Strict monitoring of intake, output and overall fluid balance. Avoid nephrotoxic medications to the extent possible. Medications to be dosed according to renal function. Monitor electrolytes and replace as needed ENDOCRINE: Maintain blood glucose between 100-180 at all times. Hypoglycemia protocol in place INFECTIOUS DISEASE: Trend temperature, WBC and procalcitonin level Follow cultures, deescalate antibiotics as soon as possible. Panculture if new onset fever ONCOLOGY/HEMATOLOGY/COAGULATION: Monitor for s/s of bleeding Monitor hemoglobin, coagulation studies as needed SKIN: Pressure ulcer prevention per facility protocol Specialty mattress ORTHO/REHAB: Continue PT/OT Prophylaxis: Continue GI and DVT prophylaxis Code Status: Full Resuscitation Disposition: Per primary team Other: Case discussed with supervising physician plan of care agreed upon BRONWYN MASTERS Jun 07, 2024 15:35
[2024-06-07 15:58] LABS: CREATININE 0.6 mg/dL (0.5-1.0); POTASSIUM 3.5 mmol/L (3.5-5.1)
[2024-06-07] MEDS ORDERED: MAGNESIUM 2GM PREMIX 50ML 50 ML IV PRN (16:00)
[2024-06-07] MEDS ORDERED: PoTASSium chl 10% ELIXIR 20MEQ 20 MEQ/15 ML UDCUP PO PRN (16:00)
[2024-06-07] MEDS ORDERED: PoTASSium chloRIDE 20MEQ ER 20 MEQ ERTAB PO PRN (16:00)
[2024-06-07] MEDS ORDERED: PoTASSium chloRIDE 10MEQ/100ML 100 ML IV PRN (16:00)
[2024-06-07 16:02] LABS: ALBUMIN 2.2 g/dL (3.5-5.0); BILIRUBIN,TOTAL 0.9 mg/dL (0.2-1.0); MAGNESIUM 1.9 mg/dL (1.80-2.40); TOTAL PROTEIN, SERUM 5.8 g/dL (6.0-8.3)
[2024-06-07 20:56] LABS: HEMATOCRIT 24.8 % (36-48); MEAN CORPUSCULAR HEMOGLOBIN 29.5 pg (27.0-33.0); MEAN CORPUSCULAR HGB CONC 31.9 g/dL (32.0-36.0); MEAN CORPUSCULAR VOLUME 92.5 fL (79-99); RED BLOOD CELL COUNT(AUTO) 2.68 MIL/uL (4.00-5.50); RED CELL DISTRIBUTION WIDTH 15.4 % (11.0-15.5); WHITE BLOOD COUNT (AUTO) 3.2 K/uL (4.8-10.8)
[2024-06-08] VITALS (9 sets, daily range): BP systolic 107–132; BP diastolic 65–85; PULSE 105–119; RESP 16–20; TEMP 97.8–98.6; O2SAT 98–100
[2024-06-08 04:36] LABS: HEMATOCRIT 24.7 % (36-48); MEAN CORPUSCULAR HEMOGLOBIN 29.4 pg (27.0-33.0); MEAN CORPUSCULAR HGB CONC 31.6 g/dL (32.0-36.0); MEAN CORPUSCULAR VOLUME 93.2 fL (79-99); RED BLOOD CELL COUNT(AUTO) 2.65 MIL/uL (4.00-5.50); RED CELL DISTRIBUTION WIDTH 15.4 % (11.0-15.5); WHITE BLOOD COUNT (AUTO) 3.1 K/uL (4.8-10.8)
[2024-06-08 05:03] LABS: ALBUMIN 2.2 g/dL (3.5-5.0); BILIRUBIN,TOTAL 0.8 mg/dL (0.2-1.0); CREATININE 0.6 mg/dL (0.5-1.0); MAGNESIUM 1.6 mg/dL (1.80-2.40); POTASSIUM 3.6 mmol/L (3.5-5.1); TOTAL PROTEIN, SERUM 5.8 g/dL (6.0-8.3)
[2024-06-08] MEDS: MAGNESIUM 2GM PREMIX 50ML 50 ML IV SCH (09:55)
--- NOTE | 2024-06-08 12:04 | PN ---
[facility] PROGRESS NOTE Date of Service: Jun 08, 2024 Time of Service: 12:01 SUBJECTIVE: 06/03 patient seen at bedside, no acute events overnight. She is on a low dose of pressors, we will wean as able. WBC improved from 12.4 down to 11.2, hemoglobin improved from 9.7 up to 9.9, creatinine improved from 1.5 down to 1.3, CRP elevated at 197.6, remainder of her labs are relatively unremarkable. 06/04 patient is seen and examined bedside, case discussed with the RN, the patient with generalized body pain, she stated that she takes tramadol at home, requesting some pain medication. During my visit she still mildly tachycardic with a heart rate ranging between 120-130, remains on Shon-Synephrine for BP support. She is getting broad-spectrum IV antibiotics, on 4 L via nasal cannula. CBC with a hemoglobin 8.2, hematocrit 26.7, platelet count of 88. CMP with sodium 136, potassium 3.2, bicarbonate of 16, magnesium 1.7. Earlier this morning blood glucose 21. We will do stat CBC, we will replace electrolytes IV per protocol, follow a stat ABG as well. 06/05 patient is seen and examined at bedside, case discussed with the RN. During my visit the patient remains in bed, she looks more comfortable, less in distress compared to yesterday, remains on supplemental oxygen via nasal cannula 4 L, saturating 98%. Chest x-ray done yesterday showed bilateral pulmonary infiltrates and pleural effusions with left more than right, a dose of furosemide 40 mg IV x1 was given. So far urine output has been over 4 L in the last 24 hours. Patient denied chest pain, she feels less short of breath. Currently she is off Shon-Synephrine. BP 118/57. Hemoglobin 7.6, hematocrit 23.8. Repeat ABG yesterday pH 7.4, bicarb 22. 06/06 patient is seen and examined at bedside, case discussed with the RN, no acute events overnight, patient downgraded from the ICU to the medical floor, she feels better, alert oriented x3, BP 107/61, heart rate of 117, saturating 96% on 3 L nasal cannula. No chest pain, no nausea, no vomiting. Hemoglobin today at 7.2. 06/07 patient is seen and examined at bedside, case discussed with the RN, no acute events overnight, patient comfortably in bed, BP 93/50, heart rate of 104, afebrile, saturating 92-94% on 2 L nasal cannula. CBC with a hemoglobin 7.3, hematocrit 23.2, magnesium level of 1.4, potassium 3.5. Chest x-ray shows [id number] decreasing bilateral lung airspace disease also decrease in size of small left pleural effusion pneumothorax. 06/08 patient is seen and examined at bedside, case discussed with the RN, no acute events overnight, the patient remains on supplemental oxygen via nasal cannula at 3 L, saturating 95-98%, BP 127/81, heart rate of 105, denied chest pain, shortness shortness for breath, no cough, no nausea, no vomiting, no abdominal discomfort, she is on clear liquid diet, tolerating well, passing gas. REVIEW OF SYSTEMS 12 point review of systems negative unless noted in HPI PHYSICAL EXAM GENERAL APPEARANCE: Patient appears generally weak and pale looking The patient is awake, alert, and oriented, in no acute cardiopulmonary distress NEUROLOGICAL: Cranial nerves II-XII grossly intact. Motor is 4/4 in bilateral upper and lower extremities proximal to distal. No sensory deficits. HEENT: Face is symmetric. Pupils are equal and reactive. Extraocular movements are intact. NECK: Supple. No JVD. No thyromegaly. No submental, submandibular, pre- /postauricular, occipital or supraclavicular lymphadenopathy. CHEST: Normal chest expansion. No Telemetry. LUNGS: Absence of any rales, rhonchi or any wheezing. CARDIOVASCULAR: Tachycardic Regular. S1 and S2 normal. No appreciable rubs, murmurs or gallops. ABDOMEN: Soft, nontender, and nondistended. There is no rebound, voluntary guarding, or rigidity. : Deferred. No Ribeiro. EXTREMITIES: Non-edematous and not cyanotic. No clubbing. Good capillary refill. SKIN: No skin breakdown. Vital Signs (last 8hr) Date Time Temp Pulse Resp B/P (MAP) Pulse Ox O2 Delivery O2 Flow Rate FiO2 06/08/24 09:54 98.2 105 19 127/71 95 Room Air 3.0 28 LABS: Laboratory: Test 06/08/24 11:42 06/08/24 03:59 06/07/24 15:40 06/07/24 04:28 Range/Units Whole Blood Glucose 67 L 70-110 MG/DL White Blood Count 3.1 L 4.8-10.8 K/uL Red Blood Count 2.65 L 4.00-5.50 MIL/uL Hemoglobin 7.8 L 12.0-16.0 g/dL Hematocrit 24.7 L 36-48 % Mean Corpuscular Volume 93.2 79-99 fL Mean Corpuscular Hemoglobin 29.4 27.0-33.0 pg Mean Corpuscular Hemoglobin Concent 31.6 L 32.0-36.0 g/dL Red Cell Distribution Width 15.4 11.0-15.5 % Platelet Count 120 L 130-400 K/uL Mean Platelet Volume 9.1 7.5-10.5 fL Nucleated Red Blood Cells 0.0 0.0-0.19 % Sodium Level 145 136-145 mmol/L Potassium Level 3.6 3.5-5.1 mmol/L Chloride Level 105 101-111 mmol/L Carbon Dioxide Level 35 H 21-32 mmol/L Blood Urea Nitrogen 1 L 7-18 mg/dL Creatinine 0.6 0.5-1.0 mg/dL Glomerular Filtration Rate Calc 111 >90 mL/min Random Glucose 70 70-105 mg/dL Total Calcium 9.3 8.5-10.1 mg/dL Magnesium Level 1.60 L 1.80-2.40 mg/dL Total Bilirubin 0.8 0.2-1.0 mg/dL Aspartate Amino Transf (AST/SGOT) 83 H 10-37 U/L Alanine Aminotransferase (ALT/SGPT) 44 12-78 U/L Alkaline Phosphatase 115 50-136 U/L Total Protein 5.8 L 6.0-8.3 g/dL Albumin 2.2 L 3.5-5.0 g/dL Amylase Level 23 L 25-115 U/L Lipase 14 L 16-77 U/L Immature Granulocyte % (Auto) 0.3 0-1 % Neutrophils (%) (Auto) 53.9 40.0-77.0 % Lymphocytes (%) (Auto) 32.4 21.0-51.0 % Monocytes (%) (Auto) 9.0 3.0-13.0 % Eosinophils (%) (Auto) 3.7 0.0-8.0 % Basophils (%) (Auto) 0.7 0.0-5.0 % Neutrophils # (Auto) 1.6 L 1.8-7.7 K/uL Lymphocytes # (Auto) 1.0 1.0-4.8 K/uL Monocytes # (Auto) 0.3 0.1-1.0 K/uL Eosinophils # (Auto) 0.11 0.00-0.70 K/uL Basophils # (Auto) 0.02 0.00-0.20 K/uL Absolute Immature Granulocyte (auto 0.01 0-1 K/uL Segmented Neutrophils % 65 40-70 % Band Neutrophils % 3 H 0-2 % Lymphocytes % (Manual) 24 22-44 % Monocytes % (Manual) 6 2-9 % Eosinophils % (Manual) 1 1-6 % Basophils % (Manual) 1 0-2 % Differential Comment MANUAL DIFFERENTIAL White Cell Morphology Comment Platelet Morphology Comment DECREASED Red Blood Cell Morphology ANISO 1+ Current Medications Medications (Trade) Dose Ordered Sig/Mina Route PRN Reason Start Time Stop Time Status Last Admin Dose Admin Acetaminophen (TYLenol 325MG TAB) 650 mg Q4H PRN PO MILD PAIN (1-3) 06/02/24 19:30 07/02/24 19:29 06/04/24 20:49 650 MG Acetaminophen (TYLenol 325MG TAB) 650 mg Q6H PRN PO TEMPERATURE GREATER THAN 101.5 06/02/24 19:30 07/02/24 19:29 Albumin Human 250 ml @ 100 mls/hr AD IV 06/03/24 01:00 06/08/24 00:59 DC 06/03/24 01:15 100 MLS/HR Azithromycin 250 ml @ 250 mls/hr Q24H IV 06/02/24 19:30 06/02/24 19:57 DC Azithromycin 250 ml @ 250 mls/hr Q24H IVPB 06/02/24 18:00 06/03/24 06:48 DC 06/02/24 18:18 250 MLS/HR Cefepime HCl (MAXipime 2 gm vial) 2 gm Q24H IVPB 06/03/24 07:00 06/13/24 06:59 06/08/24 07:06 2 GM Ceftriaxone Sodium 1 gm/ Sodium Chloride 50 ml @ 100 mls/hr Q24H IV 06/02/24 19:30 06/02/24 19:36 DC Ceftriaxone Sodium (ROCEphine 1G INJ) 1 gm Q24H IVPB 06/02/24 20:00 06/03/24 00:08 DC Ceftriaxone Sodium (Rocephin 2gm Inj) 2 gm Q24H IVPB 06/03/24 17:30 06/03/24 06:50 DC Colchicine (COLCHicine 0.6mg TAB) 0.6 mg DAILY PO 06/03/24 09:00 07/03/24 08:59 06/08/24 09:54 0.6 MG Dextrose (D50w) 50 ml AD PRN IV HYPOGLYCEMIA PROTOCOL 06/06/24 05:30 07/06/24 05:29 06/06/24 05:34 50 ML Doxycycline Hyclate 250 ml @ 125 mls/hr Q12H IV 06/03/24 14:30 06/13/24 14:29 06/08/24 03:40 125 MLS/HR Famotidine (Pepcid 20mg Vial) 20 mg DAILY IV 06/03/24 09:00 06/07/24 09:40 DC 06/06/24 09:24 20 MG Furosemide (LASix 40MG VIAL) 40 mg ONCE STAT IV 06/04/24 14:01 06/04/24 14:03 DC 06/04/24 14:25 40 MG Gabapentin (NEURontin 100 mg CAP) 100 mg BID PO 06/03/24 09:00 07/03/24 08:59 06/08/24 09:53 100 MG Glucagon (Glucagon 1mg Kit) 1 mg AD PRN IM HYPOGLYCEMIA PROTOCOL 06/06/24 05:30 07/06/24 05:29 Heparin Sodium (Porcine) (HEParin 5,000 UNIT VIAL) 5,000 unit Q12H SQ 06/03/24 00:30 06/04/24 19:33 DC 06/04/24 00:53 5,000 UNIT Home Med (Home Medication) (Folic Acid 1 TAB) DAILY PO 06/03/24 09:00 07/03/24 08:59 06/08/24 09:54 1 EACH Home Med (Home Medication) CYANOCOBALAMIN (VITAMIN B-12) 1,... DAILY PO 06/06/24 09:00 07/06/24 08:59 06/08/24 09:53 1 EACH Hydromorphone HCl (DiLAUDid 0.5MG INJ) 0.5 mg Q6H PRN IVP SEVERE PAIN (7-10) 06/04/24 11:00 06/04/24 11:01 DC Loperamide HCl (Immodium Liquid) 2 mg AD PRN PO AFTER EACH LOOSE STOOL 06/03/24 12:30 07/03/24 12:29 06/03/24 14:27 2 MG Magnesium Sulfate 50 ml @ 0 mls/hr PROTOCOL IV 06/07/24 12:30 06/07/24 16:01 DC Magnesium Sulfate 50 ml @ 0 mls/hr PROTOCOL IV 06/08/24 09:30 07/08/24 09:29 06/08/24 09:55 25 MLS/HR Magnesium Sulfate 50 ml @ 0 mls/hr PROTOCOL PRN IV OTHER [SEE ORDER COMMENTS] 06/02/24 20:00 06/07/24 12:21 DC 06/07/24 09:52 25 MLS/HR Magnesium Sulfate 50 ml @ 0 mls/hr PROTOCOL PRN IV hypomagnesemia 06/07/24 16:00 07/07/24 15:59 Metoprolol Tartrate (loprESSOR) 2.5 mg ONCE IV 06/04/24 18:00 06/04/24 23:00 DC 06/04/24 18:25 2.5 MG Metronidazole/ Sodium Chloride (flaGYL) 500 mg Q8H IV 06/03/24 14:30 06/06/24 16:29 DC 06/06/24 05:01 500 MG Morphine Sulfate (morPHINE 2MG SYG) 2 mg Q4H PRN IVP SEVERE PAIN (7-10) 06/04/24 10:30 06/04/24 11:00 DC Norepinephrine 250 ml @ 0 mls/hr PROTOCOL IV 06/02/24 16:00 06/03/24 00:19 DC 06/02/24 22:52 48 MLS/HR Norepinephrine Bitartrate (Norepineph 16 Mg/250ml NS Premix) 0.1 PROTOCOL IV 06/03/24 00:30 07/03/24 00:29 06/03/24 00:40 16 MG Ondansetron HCl (zoFRAN 4MG INJ) 4 mg Q6H PRN IV NAUSEA/VOMITING 06/02/24 19:30 07/02/24 19:29 06/07/24 20:18 4 MG Pantoprazole Sodium (PROTonix 40MG INJ) 40 mg BID IVP 06/05/24 21:00 07/05/24 20:59 06/08/24 09:54 40 MG Pharmacy Profile Note (Pharmacy Communication) 1 each ONCE MISC 06/03/24 13:00 06/03/24 13:02 DC Phenylephrine HCl 10 mg/Sodium Chloride 250 ml @ 0 mls/hr PROTOCOL IV 06/02/24 19:30 06/03/24 00:42 DC 06/03/24 00:24 278 MLS/HR Phenylephrine HCl 100 mg/Sodium Chloride 250 ml @ 0 mls/hr PROTOCOL IV 06/03/24 00:30 07/03/24 00:29 06/04/24 07:17 15.66 MLS/HR Potassium Chloride 100 ml @ 100 mls/hr AD PRN IV POTASSIUM PROTOCOL 06/02/24 20:00 07/02/24 19:59 06/06/24 05:02 100 MLS/HR Potassium Chloride 100 ml @ 100 mls/hr AD PRN IV POTASSIUM PROTOCOL 06/07/24 16:00 07/07/24 15:59 Potassium Chloride (K-Dur/Klor-Con 20meq) 10 meq AD PRN PO POTASSIUM PROTOCOL 06/07/24 16:00 06/07/24 16:03 DC Potassium Chloride (K-Dur/Klor-Con 20meq) 20 meq AD PRN PO POTASSIUM PROTOCOL 06/02/24 20:00 07/02/24 19:59 06/07/24 18:09 20 MEQ Potassium Chloride (KCl 10% Elixir 20meq/15ml) 10 meq AD PRN PO POTASSIUM PROTOCOL 06/07/24 16:00 07/07/24 15:59 Potassium Chloride (KCl 10% Elixir 20meq/15ml) 20 meq AD PRN PO POTASSIUM PROTOCOL 06/02/24 20:00 07/02/24 19:59 06/06/24 05:02 20 MEQ Promethazine HCl (Phenergan) 12.5 mg Q8H5 PRN IM NAUSEA/VOMITING 06/07/24 09:30 07/07/24 09:29 06/07/24 10:23 12.5 MG Sodium Bicarbonate (Sodium Bicarb 50meq 50ml Vial) 200 meq ONCE IV 06/04/24 16:30 06/04/24 21:30 DC 06/04/24 16:53 200 MEQ Sodium Chloride 1,000 ml @ 100 mls/hr Q10H IV 06/02/24 19:00 06/04/24 14:02 DC 06/03/24 23:33 100 MLS/HR Sodium Chloride 1,000 ml @ 100 mls/hr Q10H IV 06/02/24 19:30 06/02/24 19:57 DC 06/02/24 19:39 100 MLS/HR Tramadol HCl (UltRAM) 50 mg Q6H6 PRN PO PAIN LEVEL 4 TO 6 06/04/24 10:30 06/09/24 10:29 06/07/24 04:28 50 MG Vancomycin HCl (Vancomycin 750mg) 750 mg Q12H IVPB 06/03/24 21:00 06/03/24 14:06 DC Vancomycin HCl (Vancomycin Protocol) 1 each AD IV 06/03/24 07:00 06/03/24 14:06 DC Vitamin B Complex (Vitamin B-12) 1,000 mcg DAILY PO 06/03/24 09:00 06/04/24 10:51 DC 06/03/24 09:24 1,000 MCG Vitamin B Complex (Vitamin B-12) 1,000 mcg DAILY PO 06/04/24 14:00 06/05/24 09:55 DC DIAGNOSTICS / RADIOLOGY: [ ] ASSESSMENT: Acute respiratory failure without mechanical ventilation POA Septic shock requiring vasopressor POA Suspected community-acquired pneumonia vs pulmonary edema, POA UTI due to E coli, POA Dehydration POA Failure to thrive POA Acute kidney injury POA Protein calorie malnutrition POA Chronic anemia POA Endometrial cancer status post chemotherapy and immunotherapy POA Acute metabolic acidosis Acute pulmonary edema PLAN: Patient remains admitted to medical floor Continue the patient on classroom monitor Continue supplemental oxygen via nasal cannula 2 L, to keep O2 sat greater than 92%, wean as tolerated. We will check for need of home oxygen upon discharge. Continue broad-spectrum antibiotics. Pulmonary input noted and appreciated. Follow repeat chest x-ray today. We will advanced diet to full liquid diet. We will discuss discharge plan with case management. Possible discharge home with the weekend NEURO: Minimize central acting medications as possible. Fall Precautions. Well lighted room through the day and minimize interruptions through the night to prevent acute delirium. PULMONARY: Supplemental 02 as needed BiPAP as necessary, for respiratory distress Titrate Fio2 to keep Spo2 > or = 90% DuoNebs and CPT as needed IS hourly while awake for pulmonary hygiene prn Out of bed to chair as tolerated Maintain aspiration precautions at all times CARDIOVASCULAR: Follow hemodynamics. Vital signs per facility protocol GI & NUTRITION: Continue nutritional support Aspirations precautions Prokinetic agents and laxatives as needed KIDNEYS & ELECTROLYTES: Strict monitoring of intake and output Daily weights Avoid nephrotoxic agents Monitor electrolytes and replace as needed Goal urine output of 30mL/hr or 0.5mL/kg/hr Medications to be dosed according to renal function. Avoid contrast if possible ENDOCRINE: Maintain blood glucose between 100-180 at all times. Insulin sliding scale for blood glucose management Hypoglycemia and hyperglycemia protocol in place INFECTIOUS DISEASE: Trend temperature, WBC and procalcitonin level Follow cultures, deescalate antibiotics as soon as possible. Panculture if new onset fever HEMATOLOGY & COAGULATION: Monitor H&H. Keep Hgb > 7 Transfuse 1 unit of PRBC for Hgb < 7 Transfuse 1 pack of platelets of platelets < 20, 000 Watch for any signs and symptoms of bleeding SKIN: Pressure ulcer prevention per facility protocol Specialty mattress as needed ORTHO/REHAB Continue PT/OT PRN: MEDICATIONS Tylenol 650 mg po every 4 hrs for fever zofran 4 mg IV every 6 hrs for n/v Hydralazine 5 mg IV every 4 hrs systolic pressure > 160 bowel regiment: lactulose 20 gm PO BID PRN constipation Supportive measures: Continue GI and DVT prophylaxis Disposition: Possible discharge home over the weekend All questions answered time spent: > 35 min MARLENE INIGUEZ MD Jun 08, 2024 12:03
--- NOTE | 2024-06-08 15:20 | NUR ---
DC PLAN VISITED WITH PATIENT EXPLAINED PROCESS OF . DID NOT SEE CLEAR DIAGNOSIS. FORMS SIGNED BY ISABEL MASTERS NP. PACKET SENT TO [facility] SAID WOULD LOOK AT IT. SPOKE TO TWIN REEDER ABOUT CASE SAID IF STILL CAN NOT FIND DIAGNOSIS MIGHT NEED TO WAIT A DAY OR TWO AND RE TEST TO SEE IF STILL NEEDS O2. Addendum: 06/08/24 at 1530 by LOGAN ADAMS RN CM Amended: Links added.
--- NOTE | 2024-06-08 15:28 | PN ---
[facility] PROGRESS NOTE Date Patient Seen: Jun 08, 2024 Time of Visit: 1210 Supervising Physician: DR. HATCH Primary Care Physician: Attending: Dariusz hospitalist team Outpatient Specialists: Inpatient Consults: BIS, critical Care team PROBLEM LIST: Sepsis with septic shock, POA requiring two pressors, resolved 2/2 Ecoli Acute complicated cystitis, POA Acute respiratory failure, POA Severe dehydration/ hypovolemia, POA Acute nausea, vomiting, diarrhea, POA Frailty/debility/general body weakness Failure to thrive, POA Acute kidney injury, POA, GFR 43 (GFR 108 on 05/09/2024) Protein calorie malnutrition/hypoalbuminemia Acute on chronic anemia leukocytosis Electrolyte derangement (hyponatremia, hypochloremia) Endometrial cancer status post chemo and immunotherapy, POA Leukocytosis Chronic problem list: diabetes, hypotension, anemia, pericarditis, neuropathy, constipation INTERVAL HISTORY: Pt is sleeping but easily arousable. Hemodynamically stable she is off pressors today. Continues on antibiotic regimen cefepim, doxycycline, and Flagyl. She was hemodynamically stable with a blood pressure 137/73 heart rate of 107 respiratory rate of 14 saturating 98% on room air and afebrile. urine output 5.4 L in the last 24 hours with a balance of-3.8 L. she diuresing well. WBCs 4.2, H&H is trending down 7.6/22.8 platelet count of 81 K. chemistries morning with sodium of 140 potassium of 2.7 corrected on repeat was 3.4 BUN six total calcium of 8.4 magnesium of 1.5 covered per Stl Lactoferrin Callie Positive and Stl norovirus detected on GI PCR. Culture + for Ecoli in the urine. Pansensitive. Pending chest XR in am. Stable for downgrade we will continue to follow. 06/06 patient was seen and examined by bedside somnolent but is easily arousable. Patient has remained hemodynamically stable. Remains on3 L nasal cannula. Patient to continue on doxy and cefepime, at this time we will discontinue patient's cefepime. Patient's potassium to continue being replaced per pro tocol. As per primary nurse no acute events to be reported. At time of visit patient denies chest pain or shortness of breadth. Denies nausea vomiting or abdominal pain. 06/07 patient was seen and examined by bedside no family present. At time of visit patient has no specific complaints. Patient remains on3 L nasal cannula appears to be tolerating well. Patient remains hemodynamically stable. No temperatures have been reported. As per primary nurse no acute events to be reported at this time. Patient is continue on IV antibiotics per ID recommendations. We will continue to monitor patient closely continue to ac tively titrate FiO2 as tolerated 06/08 patient was seen and examined at bedside with present. Patient is awake alert able to answer simple questions appropriately. At time of visit patient has no specific complaints. Remains on3 L nasal cannula. Patient did failed 6 minute walk. Case management to work on arrangements prior to discharge. Patient remains hemodynamically stable. At time of visit patient denies chest pain or shortness of breadth. We will continue to monitor patient closely. As per primary nurse no acute events to be reported at this time REVIEW OF SYSTEMS: 12 point ROS reviewed with patient. Pertinent positives mentioned above. Otherwise negative. PHYSICAL EXAM: GENERAL: Alert, weak, awake oriented x 3 HEENT: EOMI, Sclera non icteric, moist mucosa NECK: Supple, no JVD, trachea midline LUNGS: coarse Ronchi breath sounds bilaterally. No wheezes HEART: Regular rate and rhythm. Normal S1 and S2, without murmurs ABD: Abdomen soft, nontender. Bowel sounds present EXT: No clubbing cyanosis or edema NEURO: Alert and oriented X3, follows commands Vital Signs (last 8hr) Date Time Temp Pulse Resp B/P (MAP) Pulse Ox O2 Delivery O2 Flow Rate FiO2 06/08/24 14:33 110 20 N/Cannula Low lpm 2.0 06/08/24 12:00 98.4 113 16 132/69 98 Nasal Cannula 3.0 06/08/24 09:54 98.2 105 19 127/71 95 Room Air 3.0 LABS: Hematology Labs: Test 06/08/24 03:59 06/07/24 04:28 Range/Units White Blood Count 3.1 L 4.8-10.8 K/uL Red Blood Count 2.65 L 4.00-5.50 MIL/uL Hemoglobin 7.8 L 12.0-16.0 g/dL Hematocrit 24.7 L 36-48 % Mean Corpuscular Volume 93.2 79-99 fL Mean Corpuscular Hemoglobin 29.4 27.0-33.0 pg Mean Corpuscular Hemoglobin Concent 31.6 L 32.0-36.0 g/dL Red Cell Distribution Width 15.4 11.0-15.5 % Platelet Count 120 L 130-400 K/uL Mean Platelet Volume 9.1 7.5-10.5 fL Nucleated Red Blood Cells 0.0 0.0-0.19 % Immature Granulocyte % (Auto) 0.3 0-1 % Neutrophils (%) (Auto) 53.9 40.0-77.0 % Lymphocytes (%) (Auto) 32.4 21.0-51.0 % Monocytes (%) (Auto) 9.0 3.0-13.0 % Eosinophils (%) (Auto) 3.7 0.0-8.0 % Basophils (%) (Auto) 0.7 0.0-5.0 % Neutrophils # (Auto) 1.6 L 1.8-7.7 K/uL Lymphocytes # (Auto) 1.0 1.0-4.8 K/uL Monocytes # (Auto) 0.3 0.1-1.0 K/uL Eosinophils # (Auto) 0.11 0.00-0.70 K/uL Basophils # (Auto) 0.02 0.00-0.20 K/uL Absolute Immature Granulocyte (auto 0.01 0-1 K/uL Segmented Neutrophils % 65 40-70 % Band Neutrophils % 3 H 0-2 % Lymphocytes % (Manual) 24 22-44 % Monocytes % (Manual) 6 2-9 % Eosinophils % (Manual) 1 1-6 % Basophils % (Manual) 1 0-2 % Differential Comment MANUAL DIFFERENTIAL White Cell Morphology Comment Platelet Morphology Comment DECREASED Red Blood Cell Morphology ANISO 1+ Chemistry Labs: Test 06/08/24 11:42 06/08/24 03:59 06/07/24 15:40 Range/Units Whole Blood Glucose 67 L 70-110 MG/DL Sodium Level 145 136-145 mmol/L Potassium Level 3.6 3.5-5.1 mmol/L Chloride Level 105 101-111 mmol/L Carbon Dioxide Level 35 H 21-32 mmol/L Blood Urea Nitrogen 1 L 7-18 mg/dL Creatinine 0.6 0.5-1.0 mg/dL Glomerular Filtration Rate Calc 111 >90 mL/min Random Glucose 70 70-105 mg/dL Total Calcium 9.3 8.5-10.1 mg/dL Magnesium Level 1.60 L 1.80-2.40 mg/dL Total Bilirubin 0.8 0.2-1.0 mg/dL Aspartate Amino Transf (AST/SGOT) 83 H 10-37 U/L Alanine Aminotransferase (ALT/SGPT) 44 12-78 U/L Alkaline Phosphatase 115 50-136 U/L Total Protein 5.8 L 6.0-8.3 g/dL Albumin 2.2 L 3.5-5.0 g/dL Amylase Level 23 L 25-115 U/L Lipase 14 L 16-77 U/L DIAGNOSTICS / RADIOLOGY RESULTS: na PLAN Case management to arrange for home oxygen failed 6 minute walk Continue doxycycline 100 mg b.i.d. Continue cefepime1 g every 8 hours Continue replacing electrolytes per protocol Rest of the care per primary team NEURO: Minimize central acting medications as possible. Maintain fall precautions, adequate lighting during the day PULMONARY: Supplemental 02 as needed. Maintain aspiration precautions at all times CARDIOVASCULAR: Follow hemodynamics. Vital signs per facility protocol GI & NUTRITION: Continue with nutritional support. Continue stool softeners and laxatives as needed. KIDNEYS & ELECTROLYTES: Strict monitoring of intake, output and overall fluid balance. Avoid nephrotoxic medications to the extent possible. Medications to be dosed according to renal function. Monitor electrolytes and replace as needed ENDOCRINE: Maintain blood glucose between 100-180 at all times. Hypoglycemia protocol in place INFECTIOUS DISEASE: Trend temperature, WBC and procalcitonin level Follow cultures, deescalate antibiotics as soon as possible. Panculture if new onset fever ONCOLOGY/HEMATOLOGY/COAGULATION: Monitor for s/s of bleeding Monitor hemoglobin, coagulation studies as needed SKIN: Pressure ulcer prevention per facility protocol Specialty mattress ORTHO/REHAB: Continue PT/OT Prophylaxis: Continue GI and DVT prophylaxis Code Status: Full Resuscitation Disposition: Per primary team Other: Case discussed with supervising physician plan of care agreed upon BRONWYN MASTERS Jun 08, 2024 15:28
--- NOTE | 2024-06-08 17:10 | NUR ---
DC PLAN SPOKE TO [facility] SAID SHOULD BE APPROVED. CM WENT TO THE [address] AND THE BACK ROAD CARS STILL STALLED. NOT SURE HOW DEEP WATER WAS. OFFERED TO ASK FAMILY TO MEET [facility] [employer] AT [facility] TO GET DME IF [facility] [employer] CAN NOT MAKE IT TO HOSPITAL SAID WOULD HAVE [employer] CALL FAMILY ONCE READY FOR DELIVERY. Addendum: 06/09/24 at 1129 by LOGAN ADAMS RN CM Amended: Links added.
--- NOTE | 2024-06-08 17:19 | NUR ---
DC PLAN ACCEPTED PENDING AUTH AND DELIVERY. [address] [facility] [facility] [employer] NOT SURE IF CAN MAKE IT TO BE DELIVERED. GAVE INFO TO PATIENT MAYBE FAMILY CAN MEET HIM AT [facility] TO TAKE DME. SAID WILL SEE WHEN IT IS APPROVED. Addendum: 06/08/24 at 1722 by LOGAN ADAMS RN CM Amended: Links added.
--- NOTE | 2024-06-08 20:40 | PN ---
SUBJECTIVE: This patient has been seen several times. The patient has renal failure, anemia with nausea, vomiting. The patient has sepsis with acute urinary tract infection, dehydration. The patient is very frail, failure to thrive, electrolyte derangements, hyponatremia, endometrial cancer, previous chemotherapy, immunotherapy, and leukocytosis. The patient remains quite sick. No other associated finding. The patient is having some intermittent nausea, vomiting. The patient remains critically ill. The patient remains weak. REVIEW OF SYSTEMS: CONSTITUTIONAL: With no fever, chills, or rigors. HEENT: With no headache, oral ulcers, sore throat, or difficulty swallowing. RESPIRATORY: No cough, expectoration, hemoptysis, or pleuritic pain. CARDIOVASCULAR: No orthopnea or PND. GASTROINTESTINAL: As above with nausea, vomiting present. GENITOURINARY: Negative for dysuria or hematuria. DERMATOLOGICAL: No rashes, pruritus, or skin lesion. NEUROLOGICAL: No seizure or syncope. PHYSICAL EXAMINATION: GENERAL: Pale, sick looking. VITAL SIGNS: Blood pressure is 132/69, pulse 113, respiratory rate is 16. HEENT: Head is atraumatic, normocephalic. Pupils are round and reactive. Sclerae are anicteric. Conjunctivae not pale. Oral mucosa is not dry. NECK: Supple. No masses or bruits. Thyroid is palpable. Neck has no bruits. CHEST: Shows equal thoracic percussion note being resonant in all areas. CARDIAC: Regular rhythm, no rub, no S3, S4. No parasternal heave. ABDOMEN: No guarding or tenderness. Bowel sounds are normoactive. No free fluid. EXTREMITIES: With no edema and no cyanosis, clubbing. BACK: With no tenderness or back deformities. LABORATORY DATA: We have reviewed available labs in detail. Labs have shown the patient has hemoglobin low up to 7.8, hematocrit is 27, white cell count has been low, platelets low. Chemistries reviewed. The patient has BUN of 1, creatinine 0.6, and low albumin of 2.6. Old records reviewed. PROBLEMS: Renal dysfunction, electrolyte problems, sepsis in a patient who has a history of endometrial cancer. The patient remains quite sick. The patient has anemia, previous respiratory failure, nausea, vomiting, the patient required pressors before, dehydration, failure to thrive, and acidosis before. PLAN: The patient is continued on supportive care. IV Phenergan now has been given for nausea, vomiting. He is on bus driver/monitor, supplemental oxygen. Diet is being advanced. Intake, output, weight will be monitored. Nonsteroidal drugs will be avoided. I have discussed with other team physician. We have reviewed the labs, x-rays and interpreted them personally. BiPAP as needed. Nonsteroidal drugs to be avoided. Dose of medicine to be adjusted. Overall condition remained guarded. The patient was seen several times today. Total time spent was more than 40 minutes. We will be monitoring closely. TID: [id number] RECEIPT: [id number]
[2024-06-09] VITALS (7 sets, daily range): BP systolic 106–121; BP diastolic 60–70; PULSE 107–127; RESP 17–20; TEMP 98–98.5; O2SAT 99–100
[2024-06-09 06:28] LABS: HEMATOCRIT 25.5 % (36-48); MEAN CORPUSCULAR HEMOGLOBIN 29.5 pg (27.0-33.0); MEAN CORPUSCULAR HGB CONC 32.2 g/dL (32.0-36.0); MEAN CORPUSCULAR VOLUME 91.7 fL (79-99); PLATELET COUNT (AUTO) 133 K/uL (130-400); RED BLOOD CELL COUNT(AUTO) 2.78 MIL/uL (4.00-5.50); RED CELL DISTRIBUTION WIDTH 15.3 % (11.0-15.5); WHITE BLOOD COUNT (AUTO) 3.5 K/uL (4.8-10.8)
[2024-06-09 06:41] LABS: ALBUMIN 2.3 g/dL (3.5-5.0); BILIRUBIN,TOTAL 0.9 mg/dL (0.2-1.0); CREATININE 0.5 mg/dL (0.5-1.0); MAGNESIUM 1.4 mg/dL (1.80-2.40); POTASSIUM 3.3 mmol/L (3.5-5.1); TOTAL PROTEIN, SERUM 6.1 g/dL (6.0-8.3)
[2024-06-09 08:26] LABS: BAND NEUTROPHILS % (MANUAL) 1 % (0-2); BASOPHILS % (MANUAL) 0 % (0-2); EOSINOPHILS % (MANUAL) 4 % (1-6); LYMPHOCYTES % (MANUAL) 23 % (22-44); MONOCYTES % (MANUAL) 5 % (2-9); REACTIVE LYMPHOCYTES 2 % (0-0); SEGMENTED NEUTROPHILS % 65 % (40-70); TOTAL CELLS COUNTED 100
[2024-06-09 08:27] LABS: MAN.DIFF COMMENT-IMPRESSION MANUAL DIFFERENTIAL
[2024-06-09 08:29] LABS: PLATELET MORPHOLOGY COMMENT SLIGHTLY DECREASED
--- NOTE | 2024-06-09 10:58 | PN ---
[facility] PROGRESS NOTE Date of Service: Jun 09, 2024 Time of Service: 10:54 SUBJECTIVE: 06/03 patient seen at bedside, no acute events overnight. She is on a low dose of pressors, we will wean as able. WBC improved from 12.4 down to 11.2, hemoglobin improved from 9.7 up to 9.9, creatinine improved from 1.5 down to 1.3, CRP elevated at 197.6, remainder of her labs are relatively unremarkable. 06/04 patient is seen and examined bedside, case discussed with the RN, the patient with generalized body pain, she stated that she takes tramadol at home, requesting some pain medication. During my visit she still mildly tachycardic with a heart rate ranging between 120-130, remains on Shon-Synephrine for BP support. She is getting broad-spectrum IV antibiotics, on 4 L via nasal cannula. CBC with a hemoglobin 8.2, hematocrit 26.7, platelet count of 88. CMP with sodium 136, potassium 3.2, bicarbonate of 16, magnesium 1.7. Earlier this morning blood glucose 21. We will do stat CBC, we will replace electrolytes IV per protocol, follow a stat ABG as well. 06/05 patient is seen and examined at bedside, case discussed with the RN. During my visit the patient remains in bed, she looks more comfortable, less in distress compared to yesterday, remains on supplemental oxygen via nasal cannula 4 L, saturating 98%. Chest x-ray done yesterday showed bilateral pulmonary infiltrates and pleural effusions with left more than right, a dose of furosemide 40 mg IV x1 was given. So far urine output has been over 4 L in the last 24 hours. Patient denied chest pain, she feels less short of breath. Currently she is off Shon-Synephrine. BP 118/57. Hemoglobin 7.6, hematocrit 23.8. Repeat ABG yesterday pH 7.4, bicarb 22. 06/06 patient is seen and examined at bedside, case discussed with the RN, no acute events overnight, patient downgraded from the ICU to the medical floor, she feels better, alert oriented x3, BP 107/61, heart rate of 117, saturating 96% on 3 L nasal cannula. No chest pain, no nausea, no vomiting. Hemoglobin today at 7.2. 06/07 patient is seen and examined at bedside, case discussed with the RN, no acute events overnight, patient comfortably in bed, BP 93/50, heart rate of 104, afebrile, saturating 92-94% on 2 L nasal cannula. CBC with a hemoglobin 7.3, hematocrit 23.2, magnesium level of 1.4, potassium 3.5. Chest x-ray shows [id number] decreasing bilateral lung airspace disease also decrease in size of small left pleural effusion pneumothorax. 06/08 patient is seen and examined at bedside, case discussed with the RN, no acute events overnight, the patient remains on supplemental oxygen via nasal cannula at 3 L, saturating 95-98%, BP 127/81, heart rate of 105, denied chest pain, shortness shortness for breath, no cough, no nausea, no vomiting, no abdominal discomfort, she is on clear liquid diet, tolerating well, passing gas. 06/09 patient is seen and examined at bedside, case discussed with the RN, patient still tachycardic, HR 117. Hemoglobin stable at 8.2 and hematocrit 25.5. Potassium remains low at 3.3 and magnesium a.4. Will order chest xary, KUB stat, 12 lead EKG, ABG and continue to replace potassium and magnesium. Patient failed 6 minute walk and case management consulted to arrange for home oxygen. Per case management, oxygen has been delivered at home. REVIEW OF SYSTEMS 12 point review of systems negative unless noted in HPI PHYSICAL EXAM GENERAL APPEARANCE: Patient appears generally weak and pale looking The patient is awake, alert, and oriented, in no acute cardiopulmonary distress NEUROLOGICAL: Cranial nerves II-XII grossly intact. Motor is 4/4 in bilateral upper and lower extremities proximal to distal. No sensory deficits. HEENT: Face is symmetric. Pupils are equal and reactive. Extraocular movements are intact. NECK: Supple. No JVD. No thyromegaly. No submental, submandibular, pre- /postauricular, occipital or supraclavicular lymphadenopathy. CHEST: Normal chest expansion. No Telemetry. LUNGS: Absence of any rales, rhonchi or any wheezing. CARDIOVASCULAR: Tachycardic Regular. S1 and S2 normal. No appreciable rubs, murmurs or gallops. ABDOMEN: Soft, nontender, and nondistended. There is no rebound, voluntary guarding, or rigidity. : Deferred. No Ribeiro. EXTREMITIES: Non-edematous and not cyanotic. No clubbing. Good capillary refill. SKIN: No skin breakdown. Vital Signs (last 8hr) Date Time Temp Pulse Resp B/P (MAP) Pulse Ox O2 Delivery O2 Flow Rate FiO2 06/09/24 08:08 98.4 117 17 114/70 99 Room Air 06/09/24 04:00 98.4 119 19 112/65 95 Nasal Cannula 3.0 LABS: Laboratory: Test 06/09/24 06:15 06/09/24 05:13 06/07/24 15:40 Range/Units White Blood Count 3.5 L 4.8-10.8 K/uL Red Blood Count 2.78 L 4.00-5.50 MIL/uL Hemoglobin 8.2 L 12.0-16.0 g/dL Hematocrit 25.5 L 36-48 % Mean Corpuscular Volume 91.7 79-99 fL Mean Corpuscular Hemoglobin 29.5 27.0-33.0 pg Mean Corpuscular Hemoglobin Concent 32.2 32.0-36.0 g/dL Red Cell Distribution Width 15.3 11.0-15.5 % Platelet Count 133 130-400 K/uL Mean Platelet Volume 9.1 7.5-10.5 fL Segmented Neutrophils % 65 40-70 % Band Neutrophils % 1 0-2 % Lymphocytes % (Manual) 23 22-44 % Monocytes % (Manual) 5 2-9 % Eosinophils % (Manual) 4 1-6 % Basophils % (Manual) 0 0-2 % Nucleated Red Blood Cells 0.0 0.0-0.19 % Differential Comment MANUAL DIFFERENTIAL Reactive Lymphocytes 2 H 0-0 % White Cell Morphology Comment See comments Platelet Morphology Comment SLIGHTLY DECREASED Red Blood Cell Morphology See comments Sodium Level 140 136-145 mmol/L Potassium Level 3.3 L 3.5-5.1 mmol/L Chloride Level 104 101-111 mmol/L Carbon Dioxide Level 34 H 21-32 mmol/L Blood Urea Nitrogen 3 L 7-18 mg/dL Creatinine 0.5 0.5-1.0 mg/dL Glomerular Filtration Rate Calc 116 >90 mL/min Random Glucose 66 L 70-105 mg/dL Total Calcium 9.1 8.5-10.1 mg/dL Phosphorus Level 4.0 2.5-4.9 mg/dL Magnesium Level 1.40 L 1.80-2.40 mg/dL Total Bilirubin 0.9 0.2-1.0 mg/dL Aspartate Amino Transf (AST/SGOT) 83 H 10-37 U/L Alanine Aminotransferase (ALT/SGPT) 40 12-78 U/L Alkaline Phosphatase 137 H 50-136 U/L Total Protein 6.1 6.0-8.3 g/dL Albumin 2.3 L 3.5-5.0 g/dL Whole Blood Glucose 65 L 70-110 MG/DL Amylase Level 23 L 25-115 U/L Lipase 14 L 16-77 U/L Current Medications Medications (Trade) Dose Ordered Sig/Mina Route PRN Reason Start Time Stop Time Status Last Admin Dose Admin Acetaminophen (TYLenol 325MG TAB) 650 mg Q4H PRN PO MILD PAIN (1-3) 06/02/24 19:30 07/02/24 19:29 06/04/24 20:49 650 MG Acetaminophen (TYLenol 325MG TAB) 650 mg Q6H PRN PO TEMPERATURE GREATER THAN 101.5 06/02/24 19:30 07/02/24 19:29 Albumin Human 250 ml @ 100 mls/hr AD IV 06/03/24 01:00 06/08/24 00:59 DC 06/03/24 01:15 100 MLS/HR Azithromycin 250 ml @ 250 mls/hr Q24H IV 06/02/24 19:30 06/02/24 19:57 DC Azithromycin 250 ml @ 250 mls/hr Q24H IVPB 06/02/24 18:00 06/03/24 06:48 DC 06/02/24 18:18 250 MLS/HR Cefepime HCl (MAXipime 2 gm vial) 2 gm Q24H IVPB 06/03/24 07:00 06/13/24 06:59 06/09/24 07:27 2 GM Ceftriaxone Sodium 1 gm/ Sodium Chloride 50 ml @ 100 mls/hr Q24H IV 06/02/24 19:30 06/02/24 19:36 DC Ceftriaxone Sodium (ROCEphine 1G INJ) 1 gm Q24H IVPB 06/02/24 20:00 06/03/24 00:08 DC Ceftriaxone Sodium (Rocephin 2gm Inj) 2 gm Q24H IVPB 06/03/24 17:30 06/03/24 06:50 DC Colchicine (COLCHicine 0.6mg TAB) 0.6 mg DAILY PO 06/03/24 09:00 07/03/24 08:59 06/09/24 08:17 0.6 MG Dextrose (D50w) 50 ml AD PRN IV HYPOGLYCEMIA PROTOCOL 06/06/24 05:30 07/06/24 05:29 06/06/24 05:34 50 ML Doxycycline Hyclate 250 ml @ 125 mls/hr Q12H IV 06/03/24 14:30 06/13/24 14:29 06/09/24 03:21 125 MLS/HR Famotidine (Pepcid 20mg Vial) 20 mg DAILY IV 06/03/24 09:00 06/07/24 09:40 DC 06/06/24 09:24 20 MG Furosemide (LASix 40MG VIAL) 40 mg ONCE STAT IV 06/04/24 14:01 06/04/24 14:03 DC 06/04/24 14:25 40 MG Gabapentin (NEURontin 100 mg CAP) 100 mg BID PO 06/03/24 09:00 07/03/24 08:59 06/09/24 08:17 100 MG Glucagon (Glucagon 1mg Kit) 1 mg AD PRN IM HYPOGLYCEMIA PROTOCOL 06/06/24 05:30 07/06/24 05:29 Heparin Sodium (Porcine) (HEParin 5,000 UNIT VIAL) 5,000 unit Q12H SQ 06/03/24 00:30 06/04/24 19:33 DC 06/04/24 00:53 5,000 UNIT Home Med (Home Medication) (Folic Acid 1 TAB) DAILY PO 06/03/24 09:00 07/03/24 08:59 06/09/24 08:21 1 EACH Home Med (Home Medication) CYANOCOBALAMIN (VITAMIN B-12) 1,... DAILY PO 06/06/24 09:00 07/06/24 08:59 06/09/24 08:21 1 EACH Hydromorphone HCl (DiLAUDid 0.5MG INJ) 0.5 mg Q6H PRN IVP SEVERE PAIN (7-10) 06/04/24 11:00 06/04/24 11:01 DC Loperamide HCl (Immodium Liquid) 2 mg AD PRN PO AFTER EACH LOOSE STOOL 06/03/24 12:30 07/03/24 12:29 06/03/24 14:27 2 MG Magnesium Sulfate 50 ml @ 0 mls/hr PROTOCOL IV 06/07/24 12:30 06/07/24 16:01 DC Magnesium Sulfate 50 ml @ 0 mls/hr PROTOCOL IV 06/08/24 09:30 07/08/24 09:29 06/08/24 09:55 25 MLS/HR Magnesium Sulfate 50 ml @ 0 mls/hr PROTOCOL PRN IV OTHER [SEE ORDER COMMENTS] 06/02/24 20:00 06/07/24 12:21 DC 06/07/24 09:52 25 MLS/HR Magnesium Sulfate 50 ml @ 0 mls/hr PROTOCOL PRN IV hypomagnesemia 06/07/24 16:00 07/07/24 15:59 Metoprolol Tartrate (loprESSOR) 2.5 mg ONCE IV 06/04/24 18:00 06/04/24 23:00 DC 06/04/24 18:25 2.5 MG Metronidazole/ Sodium Chloride (flaGYL) 500 mg Q8H IV 06/03/24 14:30 06/06/24 16:29 DC 06/06/24 05:01 500 MG Morphine Sulfate (morPHINE 2MG SYG) 2 mg Q4H PRN IVP SEVERE PAIN (7-10) 06/04/24 10:30 06/04/24 11:00 DC Norepinephrine 250 ml @ 0 mls/hr PROTOCOL IV 06/02/24 16:00 06/03/24 00:19 DC 06/02/24 22:52 48 MLS/HR Norepinephrine Bitartrate (Norepineph 16 Mg/250ml NS Premix) 0.1 PROTOCOL IV 06/03/24 00:30 07/03/24 00:29 06/03/24 00:40 16 MG Ondansetron HCl (zoFRAN 4MG INJ) 4 mg Q6H PRN IV NAUSEA/VOMITING 06/02/24 19:30 07/02/24 19:29 06/07/24 20:18 4 MG Pantoprazole Sodium (PROTonix 40MG INJ) 40 mg BID IVP 06/05/24 21:00 07/05/24 20:59 06/09/24 08:17 40 MG Pharmacy Profile Note (Pharmacy Communication) 1 each ONCE MISC 06/03/24 13:00 06/03/24 13:02 DC Phenylephrine HCl 10 mg/Sodium Chloride 250 ml @ 0 mls/hr PROTOCOL IV 06/02/24 19:30 06/03/24 00:42 DC 06/03/24 00:24 278 MLS/HR Phenylephrine HCl 100 mg/Sodium Chloride 250 ml @ 0 mls/hr PROTOCOL IV 06/03/24 00:30 07/03/24 00:29 06/04/24 07:17 15.66 MLS/HR Potassium Chloride 100 ml @ 100 mls/hr AD PRN IV POTASSIUM PROTOCOL 06/02/24 20:00 07/02/24 19:59 06/06/24 05:02 100 MLS/HR Potassium Chloride 100 ml @ 100 mls/hr AD PRN IV POTASSIUM PROTOCOL 06/07/24 16:00 07/07/24 15:59 Potassium Chloride (K-Dur/Klor-Con 20meq) 10 meq AD PRN PO POTASSIUM PROTOCOL 06/07/24 16:00 06/07/24 16:03 DC Potassium Chloride (K-Dur/Klor-Con 20meq) 20 meq AD PRN PO POTASSIUM PROTOCOL 06/02/24 20:00 07/02/24 19:59 06/07/24 18:09 20 MEQ Potassium Chloride (KCl 10% Elixir 20meq/15ml) 10 meq AD PRN PO POTASSIUM PROTOCOL 06/07/24 16:00 07/07/24 15:59 Potassium Chloride (KCl 10% Elixir 20meq/15ml) 20 meq AD PRN PO POTASSIUM PROTOCOL 06/02/24 20:00 07/02/24 19:59 06/06/24 05:02 20 MEQ Promethazine HCl (Phenergan) 12.5 mg Q8H5 PRN IM NAUSEA/VOMITING 06/07/24 09:30 07/07/24 09:29 06/07/24 10:23 12.5 MG Sodium Bicarbonate (Sodium Bicarb 50meq 50ml Vial) 200 meq ONCE IV 06/04/24 16:30 06/04/24 21:30 DC 06/04/24 16:53 200 MEQ Sodium Chloride 1,000 ml @ 100 mls/hr Q10H IV 06/02/24 19:00 06/04/24 14:02 DC 06/03/24 23:33 100 MLS/HR Sodium Chloride 1,000 ml @ 100 mls/hr Q10H IV 06/02/24 19:30 06/02/24 19:57 DC 06/02/24 19:39 100 MLS/HR Tramadol HCl (UltRAM) 50 mg Q6H6 PRN PO PAIN LEVEL 4 TO 6 06/04/24 10:30 06/09/24 10:29 DC 06/07/24 04:28 50 MG Vancomycin HCl (Vancomycin 750mg) 750 mg Q12H IVPB 06/03/24 21:00 06/03/24 14:06 DC Vancomycin HCl (Vancomycin Protocol) 1 each AD IV 06/03/24 07:00 06/03/24 14:06 DC Vitamin B Complex (Vitamin B-12) 1,000 mcg DAILY PO 06/03/24 09:00 06/04/24 10:51 DC 06/03/24 09:24 1,000 MCG Vitamin B Complex (Vitamin B-12) 1,000 mcg DAILY PO 06/04/24 14:00 06/05/24 09:55 DC DIAGNOSTICS / RADIOLOGY: [ ] ASSESSMENT: Acute respiratory failure without mechanical ventilation POA Septic shock requiring vasopressor POA Suspected community-acquired pneumonia vs pulmonary edema, POA UTI due to E coli, POA Dehydration POA Failure to thrive POA Acute kidney injury POA Protein calorie malnutrition POA Chronic anemia POA Endometrial cancer status post chemotherapy and immunotherapy POA Acute metabolic acidosis Acute pulmonary edema PLAN: Patient remains admitted to medical floor Continue the patient on potline monitor Continue supplemental oxygen via nasal cannula 2 L, to keep O2 sat greater than 92%, wean as tolerated. We will check for need of home oxygen upon discharge. Continue broad-spectrum antibiotics. Pulmonary input noted and appreciated. Follow repeat chest x-ray today. Follow KUB. Follow ABG Possible discharge home with the weekend if medically stable. NEURO: Minimize central acting medications as possible. Fall Precautions. Well lighted room through the day and minimize interruptions through the night to prevent acute delirium. PULMONARY: Supplemental 02 as needed BiPAP as necessary, for respiratory distress Titrate Fio2 to keep Spo2 > or = 90% DuoNebs and CPT as needed IS hourly while awake for pulmonary hygiene prn Out of bed to chair as tolerated Maintain aspiration precautions at all times CARDIOVASCULAR: Follow hemodynamics. Vital signs per facility protocol GI & NUTRITION: Continue nutritional support Aspirations precautions Prokinetic agents and laxatives as needed KIDNEYS & ELECTROLYTES: Strict monitoring of intake and output Daily weights Avoid nephrotoxic agents Monitor electrolytes and replace as needed Goal urine output of 30mL/hr or 0.5mL/kg/hr Medications to be dosed according to renal function. Avoid contrast if possible ENDOCRINE: Maintain blood glucose between 100-180 at all times. Insulin sliding scale for blood glucose management Hypoglycemia and hyperglycemia protocol in place INFECTIOUS DISEASE: Trend temperature, WBC and procalcitonin level Follow cultures, deescalate antibiotics as soon as possible. Panculture if new onset fever HEMATOLOGY & COAGULATION: Monitor H&H. Keep Hgb > 7 Transfuse 1 unit of PRBC for Hgb < 7 Transfuse 1 pack of platelets of platelets < 20, 000 Watch for any signs and symptoms of bleeding SKIN: Pressure ulcer prevention per facility protocol Specialty mattress as needed ORTHO/REHAB Continue PT/OT PRN: MEDICATIONS Tylenol 650 mg po every 4 hrs for fever zofran 4 mg IV every 6 hrs for n/v Hydralazine 5 mg IV every 4 hrs systolic pressure > 160 bowel regiment: lactulose 20 gm PO BID PRN constipation Supportive measures: Continue GI and DVT prophylaxis Disposition: Possible discharge home over the weekend All questions answered time spent: > 35 min MARLENE INIGUEZ MD Jun 09, 2024 10:58
--- NOTE | 2024-06-09 11:34 | EKG ---
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 Aluminum: [id number] : 1975 Requested By: MARLENE INIGUEZ Order Number: [id number] Reading MD: Vicente Garcia Measurements Intervals Carlotta Rate: 114 P: 132 NJ: 128 QRS: 127 QRSD: 66 T: 146 QT: 362 QTc: 498 Interpretive Statements Suspect arm lead reversal, interpretation assumes no reversal Unusual P axis, possible ectopic atrial tachycardia Low voltage in the limb leads Pulmonary disease pattern T wave abnormality, consider anterior ischemia Compared to ECG 06/02/2024 15:12:38 Right-axis deviation now present T-wave abnormality now present Possible ischemia now present Sinus tachycardia no longer present Electronically Signed On 06-09-2024 16:02:46 CDT by Vicente Garcia Please click the below link to view image of tracing.
--- NOTE | 2024-06-09 12:55 | HMCIMG ---
ABD 1VW HISTORY: evaluate for constipation TECHNIQUE: ABD 1VW. COMPARISON: None. FINDINGS AND IMPRESSION: Nonspecific bowel gas pattern is seen. No definite evidence of free abdominal air. No acute osseous injury is identified.
--- NOTE | 2024-06-09 12:56 | HMCIMG ---
INDICATION: tachycardia, follow up vascular congestion TECHNIQUE: CHEST 1VW COMPARISON: 06/06/2024 FINDINGS AND IMPRESSION: Continued bilateral airspace consolidation. Left chest port is in place. Cardiac silhouette is within normal limits. Mild degenerative changes of the spine. The visualized upper abdomen appears unremarkable.
--- NOTE | 2024-06-09 14:34 | PN ---
[facility] PROGRESS NOTE Date Patient Seen: Jun 09, 2024 Time of Visit: 1157 Supervising Physician: Dr. HATCH Primary Care Physician: Attending: Dariusz hospitalist team Outpatient Specialists: Inpatient Consults: BIS, critical Care team PROBLEM LIST: Sepsis with septic shock, POA requiring two pressors, resolved 2/2 Ecoli Acute complicated cystitis, POA Acute respiratory failure, POA Severe dehydration/ hypovolemia, POA Acute nausea, vomiting, diarrhea, POA Frailty/debility/general body weakness Failure to thrive, POA Acute kidney injury, POA, GFR 43 (GFR 108 on 05/09/2024) Protein calorie malnutrition/hypoalbuminemia Acute on chronic anemia leukocytosis Electrolyte derangement (hyponatremia, hypochloremia) Endometrial cancer status post chemo and immunotherapy, POA Leukocytosis Chronic problem list: diabetes, hypotension, anemia, pericarditis, neuropathy, constipation INTERVAL HISTORY: Pt is sleeping but easily arousable. Hemodynamically stable she is off pressors today. Continues on antibiotic regimen cefepim, doxycycline, and Flagyl. She was hemodynamically stable with a blood pressure 137/73 heart rate of 107 respiratory rate of 14 saturating 98% on room air and afebrile. urine output 5.4 L in the last 24 hours with a balance of-3.8 L. she diuresing well. WBCs 4.2, H&H is trending down 7.6/22.8 platelet count of 81 K. chemistries morning with sodium of 140 potassium of 2.7 corrected on repeat was 3.4 BUN six total calcium of 8.4 magnesium of 1.5 covered per Stl Lactoferrin Callie Positive and Stl norovirus detected on GI PCR. Culture + for Ecoli in the urine. Pansensitive. Pending chest XR in am. Stable for downgrade we will continue to follow. 06/06 patient was seen and examined by bedside somnolent but is easily arousable. Patient has remained hemodynamically stable. Remains on3 L nasal cannula. Patient to continue on doxy and cefepime, at this time we will discontinue patient's cefepime. Patient's potassium to continue being replaced per pro tocol. As per primary nurse no acute events to be reported. At time of visit patient denies chest pain or shortness of breadth. Denies nausea vomiting or abdominal pain. 06/07 patient was seen and examined by bedside no family present. At time of visit patient has no specific complaints. Patient remains on3 L nasal cannula appears to be tolerating well. Patient remains hemodynamically stable. No temperatures have been reported. As per primary nurse no acute events to be reported at this time. Patient is continue on IV antibiotics per ID recommendations. We will continue to monitor patient closely continue to ac tively titrate FiO2 as tolerated 06/08 patient was seen and examined at bedside with present. Patient is awake alert able to answer simple questions appropriately. At time of visit patient has no specific complaints. Remains on3 L nasal cannula. Patient did failed 6 minute walk. Case management to work on arrangements prior to discharge. Patient remains hemodynamically stable. At time of visit patient denies chest pain or shortness of breadth. We will continue to monitor patient closely. As per primary nurse no acute events to be reported at this time 06/09 patient was seen and examined at bedside no family present. Patient is at time of visit has a specific complaints. Remains on3 L nasal cannula. Patient's failed 6 minute walk case management working on home oxygen arrangements prior to discharge. Patient's electrolytes are being replaced per protocol. Patient's CBC CMP unremarkable this a.m.. Patient has remained hemodynamically stable. As per primary nurse no acute events to be reported at this time. We will continue to monitor patient closely. Dispo per primary team REVIEW OF SYSTEMS: 12 point ROS reviewed with patient. Pertinent positives mentioned above. Otherwise negative. PHYSICAL EXAM: GENERAL: Alert, weak, awake oriented x 3 HEENT: EOMI, Sclera non icteric, moist mucosa NECK: Supple, no JVD, trachea midline LUNGS: coarse Ronchi breath sounds bilaterally. No wheezes HEART: Regular rate and rhythm. Normal S1 and S2, without murmurs ABD: Abdomen soft, nontender. Bowel sounds present EXT: No clubbing cyanosis or edema NEURO: Alert and oriented X3, follows commands Vital Signs (last 8hr) Date Time Temp Pulse Resp B/P (MAP) Pulse Ox O2 Delivery O2 Flow Rate FiO2 06/09/24 12:00 98.4 112 17 121/69 99 Room Air 06/09/24 08:08 98.4 117 17 114/70 99 Room Air LABS: Hematology Labs: Test 06/09/24 06:15 Range/Units White Blood Count 3.5 L 4.8-10.8 K/uL Red Blood Count 2.78 L 4.00-5.50 MIL/uL Hemoglobin 8.2 L 12.0-16.0 g/dL Hematocrit 25.5 L 36-48 % Mean Corpuscular Volume 91.7 79-99 fL Mean Corpuscular Hemoglobin 29.5 27.0-33.0 pg Mean Corpuscular Hemoglobin Concent 32.2 32.0-36.0 g/dL Red Cell Distribution Width 15.3 11.0-15.5 % Platelet Count 133 130-400 K/uL Mean Platelet Volume 9.1 7.5-10.5 fL Segmented Neutrophils % 65 40-70 % Band Neutrophils % 1 0-2 % Lymphocytes % (Manual) 23 22-44 % Monocytes % (Manual) 5 2-9 % Eosinophils % (Manual) 4 1-6 % Basophils % (Manual) 0 0-2 % Nucleated Red Blood Cells 0.0 0.0-0.19 % Differential Comment MANUAL DIFFERENTIAL Reactive Lymphocytes 2 H 0-0 % White Cell Morphology Comment See comments Platelet Morphology Comment SLIGHTLY DECREASED Red Blood Cell Morphology See comments Chemistry Labs: Test 06/09/24 12:28 06/09/24 06:15 06/07/24 15:40 Range/Units Whole Blood Glucose 76 70-110 MG/DL Sodium Level 140 136-145 mmol/L Potassium Level 3.3 L 3.5-5.1 mmol/L Chloride Level 104 101-111 mmol/L Carbon Dioxide Level 34 H 21-32 mmol/L Blood Urea Nitrogen 3 L 7-18 mg/dL Creatinine 0.5 0.5-1.0 mg/dL Glomerular Filtration Rate Calc 116 >90 mL/min Random Glucose 66 L 70-105 mg/dL Total Calcium 9.1 8.5-10.1 mg/dL Phosphorus Level 4.0 2.5-4.9 mg/dL Magnesium Level 1.40 L 1.80-2.40 mg/dL Total Bilirubin 0.9 0.2-1.0 mg/dL Aspartate Amino Transf (AST/SGOT) 83 H 10-37 U/L Alanine Aminotransferase (ALT/SGPT) 40 12-78 U/L Alkaline Phosphatase 137 H 50-136 U/L Total Protein 6.1 6.0-8.3 g/dL Albumin 2.3 L 3.5-5.0 g/dL Amylase Level 23 L 25-115 U/L Lipase 14 L 16-77 U/L DIAGNOSTICS / RADIOLOGY RESULTS: [ ] PLAN Case management to arrange for home oxygen failed 6 minute walk Continue doxycycline 100 mg b.i.d. Continue cefepime1 g every 8 hours Continue replacing electrolytes per protocol Rest of the care per primary team NEURO: Minimize central acting medications as possible. Maintain fall precautions, adequate lighting during the day PULMONARY: Supplemental 02 as needed. Maintain aspiration precautions at all times CARDIOVASCULAR: Follow hemodynamics. Vital signs per facility protocol GI & NUTRITION: Continue with nutritional support. Continue stool softeners and laxatives as needed. KIDNEYS & ELECTROLYTES: Strict monitoring of intake, output and overall fluid balance. Avoid nephrotoxic medications to the extent possible. Medications to be dosed according to renal function. Monitor electrolytes and replace as needed ENDOCRINE: Maintain blood glucose between 100-180 at all times. Hypoglycemia protocol in place INFECTIOUS DISEASE: Trend temperature, WBC and procalcitonin level Follow cultures, deescalate antibiotics as soon as possible. Panculture if new onset fever ONCOLOGY/HEMATOLOGY/COAGULATION: Monitor for s/s of bleeding Monitor hemoglobin, coagulation studies as needed SKIN: Pressure ulcer prevention per facility protocol Specialty mattress ORTHO/REHAB: Continue PT/OT Prophylaxis: Continue GI and DVT prophylaxis Code Status: Full Resuscitation Disposition: Per primary team Other: Case discussed with supervising physician plan of care agreed upon BRONWYN MASTERS Jun 09, 2024 14:33
[2024-06-09 18:41] LABS: ABG BASE EXCESS 5.1 mmol/L (-2.0-3.0); ABG HCO3 30.2 mmol/L (21.0-28.0); ABG OXYGEN SATURATION 64.7 % (94.0-98.0); ABG PCO2 46 mmHg (32-45); ABG PH 7.437 (7.350-7.450); DEVICE COMMENT RN, VENOUS; PO2, ARTERIAL BG < 45.0 mmHg (83.0-108.0); VENT MODE, BG 3LNC (ROOM AIR)
--- NOTE | 2024-06-09 20:00 | PN ---
FOLLOWUP PROGRESS NOTE SUBJECTIVE: A 49-year-old female who has had a prolonged hospital course. The patient with a history of diabetes mellitus. She has a history of endometrial cancer, status post chemotherapy and immunotherapy. She initially presented with generalized weakness. The patient was having some nausea, vomiting. The patient was started on broad-spectrum IV antibiotics. She has had episode of acute renal failure in the hospital. Creatinine had been elevated and she is being seen as a followup visit for all of the above. REVIEW OF SYSTEMS: GENERAL: She is feeling improved. HEENT: No change in vision. No change in hearing. CARDIOVASCULAR: No current chest pains or palpitations. PULMONARY: No shortness of breath. GASTROINTESTINAL: She is tolerating a diet. MUSCULOSKELETAL: Complains of weakness. PHYSICAL EXAMINATION: VITAL SIGNS: Blood pressure 114/70, pulse in the 100s, afebrile. GENERAL: Chronically ill female, much older than appearing. HEENT: Head is atraumatic. Pupils equal, roving to light. Oropharynx is without exudate. Nares clear. NECK: There is no JVP. There is no thyromegaly, no mass. CARDIOVASCULAR: Regular. There is no S3, S4 gallop. LUNGS: Coarse with equal thoracic movement. ABDOMEN: Soft, nondistended, nontender. EXTREMITIES: Reveal no clubbing, no cyanosis. NEUROLOGIC: She is awake. She is alert. LABORATORY DATA: Sodium 140, potassium 3.3, BUN 3, creatinine 0.5, magnesium is 1.4. Hemoglobin 9.2, hematocrit is 25, white cell count 3000. IMPRESSION: * Acute renal failure. * Electrolyte abnormalities. * Endometrial cancer. * Hypotension. PLAN: The patient's creatinine has improved. The patient's electrolytes have all been aggressively repleted. She remains on the broad-spectrum IV antibiotics. We will continue to monitor the patient closely. The patient is encouraged with the therapy and we will follow while in the hospital. TID: [id number] RECEIPT: [id number]
[2024-06-10] VITALS: BP 109/59; PULSE 105; RESP 19; TEMP 98.1
[2024-06-10 04:00] VITALS: BP 108/62; PULSE 110; RESP 19; TEMP 98.2
[2024-06-10 05:53] LABS: HEMATOCRIT 26.5 % (36-48); MEAN CORPUSCULAR HEMOGLOBIN 29.1 pg (27.0-33.0); MEAN CORPUSCULAR HGB CONC 31.3 g/dL (32.0-36.0); RED BLOOD CELL COUNT(AUTO) 2.85 MIL/uL (4.00-5.50); RED CELL DISTRIBUTION WIDTH 15.6 % (11.0-15.5); WHITE BLOOD COUNT (AUTO) 3.8 K/uL (4.8-10.8)
[2024-06-10 06:12] LABS: ALBUMIN 2.4 g/dL (3.5-5.0); BILIRUBIN,TOTAL 0.9 mg/dL (0.2-1.0); CREATININE 0.6 mg/dL (0.5-1.0); MAGNESIUM 1.7 mg/dL (1.80-2.40); POTASSIUM 3.5 mmol/L (3.5-5.1); TOTAL PROTEIN, SERUM 6.3 g/dL (6.0-8.3)
[2024-06-10 06:57] VITALS: PULSE 113; RESP 20; O2SAT 98
[2024-06-10 08:00] VITALS: BP 116/79; PULSE 111; RESP 18; TEMP 99.1
[2024-06-10 12:00] VITALS: BP 110/63; PULSE 109; RESP 18; TEMP 98.3
--- NOTE | 2024-06-10 13:24 | DS ---
Discharge Summary Hospital Course Summary: This is a 48-year-old female with past medical history of diabetes, hypotension, anemia, pericarditis, neuropathy, constipation, endometrial cancer status post chemotherapy and immunotherapy who was brought by EMS to the ED for complaints of generalized body weakness and loss of appetite for two days. Seen and examined patient in the ER,awake alert,pale,weak and ill appearing . Patient denied fever,chills,cough,chest pain,palpitation ,abdominal pain and diarrhea. In the ER vital signs temperature 99.5, heart rate 150, blood pressure 103/52 saturation 98% on 4 L nasal cannula. In the ER Labs: WBC 12.4 negative left shift of neutrophils 79 hemoglobin 9.7, hematocrit 30 platelet count 158. Sodium 132, chloride 99, BUN 21, creatinine 1.5, GFR 43 glucose 83 lactic acid 1.9 total bilirubin 1.9 total protein 5.9 albumin 2.3 troponin 11 procalcitonin 5.9. ECG result revealed sinus tachycardia heart rate 145 with multiple premature complexes. Chest x-ray result revealed mild bilateral pulmonary infiltrates are seen may be related to mild pulmonary vascular congestion with possible superimposed pneumonitis. While in the ER patient received fluid resuscitation of LR 30 mL per kg over 3 hours, patient was given Rocephin 1 g and azithromycin IV , Zofran 4 mg IV and patient was started on Levophed drip. Patient admitted to ICU for further medical management. Critical Care consultation requested, recommendations followed. Patient weaned off vasopressors. Results of septic workup positive for E coli sensitive to multiple antibiotics. Patient downgraded to the medical floor. Patient evaluated by RT, 6 minute walk, case management consulted, arrangement is made for the patient to be discharged home with oxygen, it has already been delivered today. Plan for patient to be discharged home today. 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 Maintenance Technician(s): Critical care Assessment/Plan: Final diagnosis Acute respiratory failure without mechanical ventilation POA Septic shock requiring vasopressor POA Suspected community-acquired pneumonia vs pulmonary edema, POA UTI due to E coli, POA Dehydration POA Failure to thrive POA Acute kidney injury POA Protein calorie malnutrition POA Chronic anemia POA Endometrial cancer status post chemotherapy and immunotherapy POA Acute metabolic acidosis Acute pulmonary edema Discharge Instructions: Patient to follow up with PCP as an outpatient on to return to the hospital if condition changes. Patient agreed with plan and understood information provided. Home Medications: Active Scripts Cyanocobalamin (Vitamin B-12) (B-12) 1,000 Mcg Tablet, 1 TAB PO DAILY for 30 Days, #30 TAB 1 Refill Prov:MARLENE INIGUEZ MD 05/09/24 Folic Acid (Folic Acid) 0.4 Mg Tablet, 1 TAB PO DAILY for 30 Days, #30 TAB 1 Refill Prov:MARLENE INIGUEZ MD 05/09/24 Ferrous Sulfate (Ferrous Sulfate) 325 Mg (65 Mg Iron) Ectab, 1 TAB PO DAILY for 30 Days, #30 TAB 1 Refill Prov:MARLENE INIGUEZ MD 05/09/24 Colchicine (Colchicine) 0.6 Mg Tablet, 0.6 MG PO DAILY for 44 Days, #44 TAB 0 Refills Prov:MARLENE INIGUEZ MD 05/09/24 Aspirin (ASPIRIN 81 MG ECTAB) 81 Mg Ectab, 81 MG PO DAILY for 30 Days, #30 TAB.EC 1 Refill Prov:MARLENE INIGUEZ MD 05/09/24 Reported Medications Ondansetron (Ondansetron Odt) 4 Mg Tab.rapdis, 1 TAB PO Q6HPRN PRN for nausea/vomiting for 4 Days, #16 TAB 0 Refills 06/03/24 Omeprazole (Omeprazole) 20 Mg Capsule.dr, 1 CAP PO DAILY for 30 Days, #30 CAP 0 Refills 06/03/24 Tramadol Hcl (Tramadol HCl) 50 Mg Tablet, 50 MG PO Q6HPRN PRN for PAIN LEVEL 4 TO 6, TAB 06/03/24 Metoclopramide HCl (Metoclopramide HCl) 10 Mg Tablet, 1 TAB PO QIDP PRN for nausea/vomiting 05/05/24 Gabapentin (Gabapentin) 100 Mg Capsule, 1 CAP PO BID for 30 Days, #90 CAP 0 Refills 04/07/24 Discontinued Reported Medications Potassium Chloride (Potassium Chloride) 20 Meq Tab.er.prt, 1 TAB PO BID for 30 Days, #60 TAB 0 Refills 06/03/24 Indomethacin (Indomethacin) 25 Mg Capsule, 1 CAP PO BID PRN for CHEST PAIN for 14 Days, #28 CAP 0 Refills with food 06/03/24 Tramadol Hcl (Tramadol HCl) 50 Mg Tablet, 1 TAB PO Q8H PRN for pain 05/05/24 Guaifenesin (Mucus-ER Max) 1,200 Mg Tab.er.12h, 1200 MG PO BID PRN for OTHER [SEE ORDER COMMENTS], TAB 04/07/24 Tramadol HCl (Tramadol HCl ER) 100 Mg Tab.er.24h, 50 MG PO TID PRN for PAIN, TAB 04/07/24 Metoclopramide HCl (Reglan 10 mg Tab) 10 Mg Tablet, 1 TAB PO QID PRN for NAUSEA/VOMITING for 30 Days, #120 TAB 0 Refills 04/07/24 Discontinued Scripts Cefdinir (Cefdinir) 300 Mg Capsule, 1 CAP PO BID for 5 Days, #10 CAP 0 Refills Prov:MARLENE INIGUEZ MD 05/09/24 Lactobacillus Rhamnosus GG (Culturelle) 15 Billion Cell Cap.sprink, 1 EACH PO DAILY for 7 Days, #14 CAP.SPRINK 1 Refill Prov:MARLENE INIGUEZ MD 05/09/24 Indomethacin (Indocin) 25 Mg Cap, 25 MG PO BID PRN for CHEST PAIN for 7 Days, #14 CAP 1 Refill Prov:MARLENE INIGUEZ MD 05/09/24 Ondansetron HCl (Ondansetron HCl) 4 Mg Tablet, 1 TAB PO Q4HPRN PRN for nausea/vomiting for 3 Days, #18 TAB 0 Refills Prov:JOVAN BECKHAM NP 04/12/24 Time spent arranging discharge: 31-60 minutes MARLENE INIGUEZ MD Jun 10, 2024 13:24
[2024-06-10] MEDS ORDERED: LEVO750T40 PO (13:25)
[2024-06-10] MEDS ORDERED: MAGNESIUM 2GM PREMIX 50ML 50 ML IV SCH (13:30)
[2024-06-10] MEDS ORDERED: PoTASSium chloRIDE 20MEQ ER 20 MEQ ERTAB PO ONE (13:30)
[2024-06-10 16:00] VITALS: BP 115/70; PULSE 103; RESP 18; TEMP 98.5
--- NOTE | 2024-06-10 16:07 | PN ---
[facility] PROGRESS NOTE Date Patient Seen: Jun 10, 2024 Time of Visit: 1217 Supervising Physician: Dr. Mar Primary Care Physician: Attending: Dariusz hospitalist team Outpatient Specialists: Inpatient Consults: BIS, critical Care team PROBLEM LIST: Sepsis with septic shock, POA requiring two pressors, resolved 2/2 Ecoli Acute complicated cystitis, POA Acute respiratory failure, POA Severe dehydration/ hypovolemia, POA Acute nausea, vomiting, diarrhea, POA Frailty/debility/general body weakness Failure to thrive, POA Acute kidney injury, POA, GFR 43 (GFR 108 on 05/09/2024) Protein calorie malnutrition/hypoalbuminemia Acute on chronic anemia leukocytosis Electrolyte derangement (hyponatremia, hypochloremia) Endometrial cancer status post chemo and immunotherapy, POA Leukocytosis Chronic problem list: diabetes, hypotension, anemia, pericarditis, neuropathy, constipation INTERVAL HISTORY: Pt is sleeping but easily arousable. Hemodynamically stable she is off pressors today. Continues on antibiotic regimen cefepim, doxycycline, and Flagyl. She was hemodynamically stable with a blood pressure 137/73 heart rate of 107 respiratory rate of 14 saturating 98% on room air and afebrile. urine output 5.4 L in the last 24 hours with a balance of-3.8 L. she diuresing well. WBCs 4.2, H&H is trending down 7.6/22.8 platelet count of 81 K. chemistries morning with sodium of 140 potassium of 2.7 corrected on repeat was 3.4 BUN six total calcium of 8.4 magnesium of 1.5 covered per Stl Lactoferrin Callie Positive and Stl norovirus detected on GI PCR. Culture + for Ecoli in the urine. Pansensitive. Pending chest XR in am. Stable for downgrade we will continue to follow. 06/06 patient was seen and examined by bedside somnolent but is easily arousable. Patient has remained hemodynamically stable. Remains on3 L nasal cannula. Patient to continue on doxy and cefepime, at this time we will discontinue patient's cefepime. Patient's potassium to continue being replaced per protocol. As per primary nurse no acute events to be reported. At time of visit patient denies chest pain or shortness of breadth. Denies nausea vomiting or abdominal pain. 06/07 patient was seen and examined by bedside no family present. At time of visit patient has no specific complaints. Patient remains on3 L nasal cannula appears to be tolerating well. Patient remains hemodynamically stable. No temperatures have been reported. As per primary nurse no acute events to be reported at this time. Patient is continue on IV antibiotics per ID recommendations. We will continue to monitor patient closely continue to actively titrate FiO2 as tolerated 06/08 patient was seen and examined at bedside with present. Patient is awake alert able to answer simple questions appropriately. At time of visit patient has no specific complaints. Remains on3 L nasal cannula. Patient did failed 6 minute walk. Case management to work on arrangements prior to discharge. Patient remains hemodynamically stable. At time of visit patient denies chest pain or shortness of breadth. We will continue to monitor patient closely. As per primary nurse no acute events to be reported at this time 06/09 patient was seen and examined at bedside no family present. Patient is at time of visit has a specific complaints. Remains on3 L nasal cannula. Patient's failed 6 minute walk case management working on home oxygen arrangements prior to discharge. Patient's electrolytes are being replaced per protocol. Patient's CBC CMP unremarkable this a.m.. Patient has remained hemodynamically stable. As per primary nurse no acute events to be reported at this time. We will continue to monitor patient closely. Dispo per primary team 06/10 patient was seen and examined at bedside with the has been present. At time of visit patient has specific complaints. Case management working on oxygen arrangements prior to discharge. At time of visit patient denies any chest pain or shortness for breath. Denies nausea or vomiting or abdominal pain. Remains on 3 L nasal cannula is tolerating well. As per primary nurse no acute pressor support at this time REVIEW OF SYSTEMS: 12 point ROS reviewed with patient. Pertinent positives mentioned above. Otherwise negative. PHYSICAL EXAM: GENERAL: Alert, weak, awake oriented x 3 HEENT: EOMI, Sclera non icteric, moist mucosa NECK: Supple, no JVD, trachea midline LUNGS: coarse Ronchi breath sounds bilaterally. No wheezes HEART: Regular rate and rhythm. Normal S1 and S2, without murmurs ABD: Abdomen soft, nontender. Bowel sounds present EXT: No clubbing cyanosis or edema NEURO: Alert and oriented X3, follows commands Vital Signs (last 8hr) Date Time Temp Pulse Resp B/P (MAP) Pulse Ox O2 Delivery O2 Flow Rate FiO2 06/10/24 12:00 98.2 109 18 110/63 99 Nasal Cannula 3.0 LABS: Hematology Labs: Test 06/10/24 05:40 06/09/24 06:15 Range/Units White Blood Count 3.8 L 4.8-10.8 K/uL Red Blood Count 2.85 L 4.00-5.50 MIL/uL Hemoglobin 8.3 L 12.0-16.0 g/dL Hematocrit 26.5 L 36-48 % Mean Corpuscular Volume 93.0 79-99 fL Mean Corpuscular Hemoglobin 29.1 27.0-33.0 pg Mean Corpuscular Hemoglobin Concent 31.3 L 32.0-36.0 g/dL Red Cell Distribution Width 15.6 H 11.0-15.5 % Platelet Count 136 130-400 K/uL Mean Platelet Volume 8.7 7.5-10.5 fL Nucleated Red Blood Cells 0.0 0.0-0.19 % Segmented Neutrophils % 65 40-70 % Band Neutrophils % 1 0-2 % Lymphocytes % (Manual) 23 22-44 % Monocytes % (Manual) 5 2-9 % Eosinophils % (Manual) 4 1-6 % Basophils % (Manual) 0 0-2 % Differential Comment MANUAL DIFFERENTIAL Reactive Lymphocytes 2 H 0-0 % White Cell Morphology Comment See comments Platelet Morphology Comment SLIGHTLY DECREASED Red Blood Cell Morphology See comments Chemistry Labs: Test 06/10/24 15:53 06/10/24 05:40 06/09/24 06:15 Range/Units Whole Blood Glucose 62 L 70-110 MG/DL Sodium Level 141 136-145 mmol/L Potassium Level 3.5 3.5-5.1 mmol/L Chloride Level 106 101-111 mmol/L Carbon Dioxide Level 31 21-32 mmol/L Blood Urea Nitrogen 5 L 7-18 mg/dL Creatinine 0.6 0.5-1.0 mg/dL Glomerular Filtration Rate Calc 111 >90 mL/min Random Glucose 71 70-105 mg/dL Total Calcium 9.2 8.5-10.1 mg/dL Magnesium Level 1.70 L 1.80-2.40 mg/dL Total Bilirubin 0.9 0.2-1.0 mg/dL Aspartate Amino Transf (AST/SGOT) 55 H 10-37 U/L Alanine Aminotransferase (ALT/SGPT) 31 # 12-78 U/L Alkaline Phosphatase 140 H 50-136 U/L Total Protein 6.3 6.0-8.3 g/dL Albumin 2.4 L 3.5-5.0 g/dL Phosphorus Level 4.0 2.5-4.9 mg/dL DIAGNOSTICS / RADIOLOGY RESULTS: na PLAN Case management to arrange for home oxygen failed 6 minute walk Continue doxycycline 100 mg b.i.d. Continue cefepime1 g every 8 hours Continue replacing electrolytes per protocol Rest of the care per primary team NEURO: Minimize central acting medications as possible. Maintain fall precautions, adequate lighting during the day PULMONARY: Supplemental 02 as needed. Maintain aspiration precautions at all times CARDIOVASCULAR: Follow hemodynamics. Vital signs per facility protocol GI & NUTRITION: Continue with nutritional support. Continue stool softeners and laxatives as needed. KIDNEYS & ELECTROLYTES: Strict monitoring of intake, output and overall fluid balance. Avoid nephrotoxic medications to the extent possible. Medications to be dosed according to renal function. Monitor electrolytes and replace as needed ENDOCRINE: Maintain blood glucose between 100-180 at all times. Hypoglycemia protocol in place INFECTIOUS DISEASE: Trend temperature, WBC and procalcitonin level Follow cultures, deescalate antibiotics as soon as possible. Panculture if new onset fever ONCOLOGY/HEMATOLOGY/COAGULATION: Monitor for s/s of bleeding Monitor hemoglobin, coagulation studies as needed SKIN: Pressure ulcer prevention per facility protocol Specialty mattress ORTHO/REHAB: Continue PT/OT Prophylaxis: Continue GI and DVT prophylaxis Code Status: Full Resuscitation Disposition: Per primary team Other: Case discussed with supervising physician plan of care agreed upon BRONWYN MASTERS Jun 10, 2024 16:07
[2024-06-10] MEDS: [UNRECOGNIZED DRUG - OTHER] IV ONE (16:50)
--- NOTE | 2024-06-10 16:56 | PN ---
FOLLOWUP PROGRESS NOTE SUBJECTIVE: A 49-year-old female, who has had a prolonged hospital course. The patient with a history of diabetes mellitus. She has a history of endometrial cancer, status post chemotherapy as well as immunotherapy. The patient initially presented with significant nausea and vomiting. The patient remains on the broad spectrum IV antibiotics. She has had acute renal failure in the hospital. Creatinine has been elevated and the patient is being seen for all of the above. REVIEW OF SYSTEMS: GENERAL: She is feeling improved. HEENT: No change in vision. No change in hearing. CARDIOVASCULAR: There is no current chest pain or palpitations. PULMONARY: No shortness of breath. GASTROINTESTINAL: She is now tolerating diet. MUSCULOSKELETAL: Complains of weakness. PHYSICAL EXAMINATION: VITAL SIGNS: Blood pressure 116/79, pulse in the 100s, afebrile. GENERAL: Chronically ill female, much older than appearing. HEENT: Head is atraumatic. Pupils equal, roving to light. Oropharynx is without exudate. Nares clear. NECK: There is no JVP. There is no thyromegaly, no mass. CARDIOVASCULAR: Regular. There is no S3, S4 gallop. LUNGS: Coarse with equal thoracic movement. ABDOMEN: Soft, nondistended, nontender. EXTREMITIES: Reveal no clubbing, no cyanosis. NEUROLOGIC: She is awake. She is alert. LABORATORY DATA: Sodium 141, potassium 3.5, BUN 5, creatinine 0.6. LABORATORY DATA: Hemoglobin 8.3, hematocrit 26. IMPRESSION: * Acute renal failure. * Sepsis. * Endometrial cancer. * Anemia. PLAN: The patient's renal function is much improved. The patient remains on the broad spectrum IV antibiotics. Electrolytes have all been aggressively repleted. The patient is being seen by case management for final disposition. We will continue to follow closely. All labs will be repeated in the morning. The patient and family at the bedside. Multiple questions were all answered. TID: [id number] RECEIPT: [id number]
== END 2024-06-10 17:55 | disposition home or self-care (01) | DRG 871 ==
LOC: EDH 14:57 → EDHIP 18:20 → 2BH 21:19 → 4DH 06-05 17:40
PROVIDERS: ADMIT Internal Medicine; ATTEND Internal Medicine
DX: A41.9 Sepsis, unspecified organism (principal); J81.0 Acute pulmonary edema; J96.01 Acute respiratory failure with hypoxia; R65.21 Severe sepsis with septic shock; E46 Unspecified protein-calorie malnutrition; E87.1 Hypo-osmolality and hyponatremia; N17.9 Acute kidney failure, unspecified; N39.0 Urinary tract infection, site not specified; E86.0 Dehydration; E86.1 Hypovolemia; D64.9 Anemia, unspecified; E87.8 Other disorders of electrolyte and fluid balance, not elsewhere classified; E11.40 Type 2 diabetes mellitus with diabetic neuropathy, unspecified; E83.42 Hypomagnesemia; E87.6 Hypokalemia; E88.09 Other disorders of plasma-protein metabolism, not elsewhere classified; Z82.49 Family history of ischemic heart disease and other diseases of the circulatory system; Z92.21 Personal history of antineoplastic chemotherapy; Z83.3 Family history of diabetes mellitus; Z85.42 Personal history of malignant neoplasm of other parts of uterus; Z68.26 Body mass index [BMI] 26.0-26.9, adult; Z90.710 Acquired absence of both cervix and uterus; Z79.899 Other long term (current) drug therapy
CPT/HCPCS: 36415; 36600; 71045; 74018; 76700; 80048; 80051; 80053; 80305; 81001; 81025; 82150; 82306; 82435; 82533; 82550; 82570; 82607; 82803; 82947; 82948; 83605; 83615; 83630; 83690; 83735; 83880; 83935; 84100; 84132; 84145; 84295; 84484; 84550; 84702; 85018; 85025; 85027; 86140; 87040; 87046; 87086; 87186; 87324; 87507; 87635; 87804; 87880; 93005; 93308; 94760; 96361; 96365; 96368; 99291; G0378; J0456; J0692; J0696; J1642; J1644; J1940; J2270; J2371; J2405; J2470; J2550; J3475; J3480; J3490; J7050; J7070; J7120; P9045; J3370